=== PATIENT | female | born 1950 | race Caucasian/White ===

== ENCOUNTER → 2017-10-19 | Outpatient (CLI) | payer MEDICARE, OTHER ==
[~2017-10-19] MED LIST: PREMPRO PO
--- NOTE | 2017-10-19 13:08 | Diagnostic Imaging Report ---
PROCEDURE: US right lower extremity venous. TECHNIQUE: Multiple real-time grayscale images were obtained over the right lower extremity in various projections. Additional duplex Doppler and color Doppler images were also obtained. Date: 10/19/2017. Indication: 67-year-old female, right leg swelling. Comparison: None. Findings: The right common femoral vein, right superficial femoral vein, and right popliteal vein demonstrates flow with compressibility. Visualized portions of the greater saphenous vein and deep femoral vein are patent. The right posterior tibial vein and peroneal veins are patent. IMPRESSION: 1. Negative for right lower extremity deep venous thrombosis. Dictated by: Dictated on workstation # [id number]
== END ==
LOC: RAD 12:05
PROVIDERS: ATTEND Nurse Practitioner Family
DX: R22.41 Localized swelling, mass and lump, right lower limb (principal)

== ENCOUNTER → 2017-10-24 | Outpatient (CLI) | payer MEDICARE, OTHER ==
--- NOTE | 2017-10-25 09:04 | Diagnostic Imaging Report ---
INDICATION: Routine screening. COMPARISON: 01/20/2015 and 03/05/2013. TECHNIQUE: Screening digital mammography was performed bilaterally with a Computer Aided Detection (CAD) system. FINDINGS: Mild density is noted bilaterally. There is a density identified in the medial left breast at mid to posterior depth, best seen on the CC view. This may be inferiorly located on the MLO view. This appears more prominent when compared with the prior mammograms. Additional views are recommended. The right breast is stable. No malignant appearing microcalcifications are seen. The axillae are unremarkable. IMPRESSION: Increasing left breast density as described. Additional views including spot compression, rolled CC, and ML views are recommended. ACR BI-RADS Category 0: Incomplete. (Needs additional imaging evaluation). Result letter will be mailed to the patient. Note: At least 10% of breast cancer is not imaged by mammography. Dictated by: Dictated on workstation # [id number]
== END ==
LOC: RAD 15:09
PROVIDERS: ATTEND Nurse Practitioner Family
DX: Z12.31 Encounter for screening mammogram for malignant neoplasm of breast (principal)
CPT/HCPCS: 77067

== ENCOUNTER → 2017-10-28 | Outpatient (CLI) | payer MEDICARE, OTHER ==
--- NOTE | 2017-10-28 19:29 | Diagnostic Imaging Report ---
INDICATION: Breast density. Patient presents for additional views. Correlation is made with recent screening study from 10/24/2017 The current study was also evaluated with a Computer Aided Detection (CAD) system. Patient returned and spot compression CC, 90 degrees lateral and rolled CC views were obtained utilizing 3-D mammography. There is persistent somewhat irregular nodular density in the medial aspect of the left breast at mid to posterior depth. This appears to be slightly inferior although a corresponding density on the MLO view is not well seen. No malignant appearing microcalcifications are identified. IMPRESSION: Persistent irregular density medial left breast. Further evaluation with ultrasound is recommended. ACR BI-RADS Category 0: Incomplete. (Needs additional imaging evaluation). Result letter will be mailed to the patient. Note: At least 10% of breast cancer is not imaged by mammography. Dictated by: Dictated on workstation # [id number]
--- NOTE | 2017-10-28 20:05 | Diagnostic Imaging Report ---
INDICATION: Left breast density. Correlation is made with the diagnostic mammogram from 10/28/2017. FINDINGS: Sonographic Interrogation of the medial left breast was performed. No solid or cystic masses are identified. IMPRESSION: No sonographic abnormality is seen. Even so, the density in the medial aspect of the left breast seen on the mammogram is somewhat concerning. Further evaluation with MRI of the breast is recommended. ACR BI-RADS Category 0: Incomplete. (Needs additional imaging evaluation). Dictated by: Dictated on workstation # [id number]
== END ==
LOC: RAD 08:59
PROVIDERS: ATTEND Nurse Practitioner Family
DX: R92.2 Inconclusive mammogram (principal)
CPT/HCPCS: 76642

== ENCOUNTER 2018-03-01 08:12 | Outpatient (RCR) | payer MEDICARE, OTHER | END 2018-04-18 13:44 | disposition home or self-care (01) | LOC: ONC 08:12 | PROVIDERS: ATTEND Radiology Radiation Oncology | DX: Z51.0 Encounter for antineoplastic radiation therapy (principal); C50.212 Malignant neoplasm of upper-inner quadrant of left female breast; Z17.0 Estrogen receptor positive status [ER+] | CPT/HCPCS: 77290; 77295; 77300; 77307; 77334; 77336; 77417; 99204 ==

== ENCOUNTER 2018-04-18 13:46 | Outpatient (RCR) | payer MEDICARE, OTHER | END 2018-05-02 | disposition home or self-care (01) | LOC: ONC 13:46 | PROVIDERS: ATTEND Radiology Radiation Oncology | DX: C50.212 Malignant neoplasm of upper-inner quadrant of left female breast (principal); Z17.0 Estrogen receptor positive status [ER+] | CPT/HCPCS: 99213 ==

== ENCOUNTER → 2018-11-10 | Outpatient (CLI) | payer MEDICARE, OTHER ==
--- NOTE | 2018-11-10 21:24 | Diagnostic Imaging Report ---
INDICATION: Breast carcinoma. Correlation is made with left mammogram from 05/22/2018 and bilateral mammogram from 10/24/2017 and 02/03/2015. 2-D and 3-D bilateral diagnostic mammography was performed with a Computer Aided Detection (CAD) system. FINDINGS: Scattered fibroglandular densities are identified bilaterally. Post therapeutic changes in the left breast are noted. There has been overall decrease in density in the medial aspect of the left breast since prior exam, likely improving seroma. No mass or malignant-appearing microcalcifications are detected. The axillae are unremarkable. IMPRESSION: Decreasing density in the medial left breast, likely improving previously noted seroma post lumpectomy. Followup of this area with ultrasound is recommended will be performed today. ACR BI-RADS Category 0: Incomplete. (Needs additional imaging evaluation). Result letter will be mailed to the patient. Note: At least 10% of breast cancer is not imaged by mammography. Dictated by: Dictated on workstation # [id number]
--- NOTE | 2018-11-10 21:30 | Diagnostic Imaging Report ---
INDICATION: Left breast carcinoma status post lumpectomy. This study is performed to further evaluate previously noted left breast fluid collection. Correlation is made with diagnostic study earlier the same day as well as left breast ultrasound from 05/22/2018. FINDINGS: Fluid collection at the lumpectomy site at the 9 to 10 o'clock location in the left breast is again seen. This does measure slightly smaller at approximately 3.5 x 1.3 x 1.4 cm. This compares with 3.4 x 2.3 x 4.5 cm on prior. No new abnormality is detected. IMPRESSION: Decrease in size of a left breast fluid collection suggestive of seroma when compared with examination from 05/22/2018. Continued follow-up could be performed with a repeat study in six months to confirm continued resolution. ACR BI-RADS Category 3: Probably benign findings. Dictated by: Dictated on workstation # [id number]
== END ==
LOC: RAD 13:36
PROVIDERS: ATTEND Surgery
DX: C50.112 Malignant neoplasm of central portion of left female breast (principal)
CPT/HCPCS: 76642; 77066

== ENCOUNTER → 2019-05-18 | Outpatient (CLI) | payer MEDICARE, OTHER ==
--- NOTE | 2019-05-18 19:23 | Diagnostic Imaging Report ---
INDICATION: Six-month followup. COMPARISON: Correlation is made with prior mammograms from 11/10/2018 and 05/22/2018. TECHNIQUE: Unilateral left 2-D and 3-D diagnostic mammography was performed. The current study was also evaluated with a Computer Aided Detection (CAD) system. 3-D tomosynthesis was also performed and reviewed. FINDINGS: Density in the medial aspect of the left breast is similar to perhaps slightly less prominent when compared with prior exam. There is a nodular density in the retroareolar slightly outer left breast 3 cm from the nipple, which appears more prominent than prior studies. No other masses are seen. No suspicious microcalcifications are seen. Left axilla is unremarkable. IMPRESSION: Medial left breast density shown sonographically to represent a seroma appears slightly less prominent on today's study. This would be further evaluated with ultrasound. There is a nodular density retroareolar left breast, as described. This will also be further evaluated with ultrasound today. ACR BI-RADS Category 0: Incomplete. (Needs additional imaging evaluation). Result letter will be mailed to the patient. Note: At least 10% of breast cancer is not imaged by mammography. Dictated by: Dictated on workstation # [id number]
--- NOTE | 2019-05-18 19:31 | Diagnostic Imaging Report ---
INDICATION: Left breast seroma, followup. Patient also has left breast retroareolar density. Study is performed for further evaluation. COMPARISON: Correlation is made with diagnostic study earlier same day as well as prior left breast ultrasound from 11/10/2018. FINDINGS: Sonographic interrogation of the area of lumpectomy in the 9 to 10 o'clock location of left breast was performed. Fluid collection at this location measures 2.7 x 0.9 x 2.0 cm. This compares with 3.5 x 1.3 x 1.4 cm on prior. There is also a small cyst in retroareolar left breast at 1 o'clock location 1 cm from the nipple. It is uncertain if this correlates with the mammographic density. No other sonographic abnormalities are identified. IMPRESSION: Stable to slight decrease in size of the seroma at the lumpectomy site of left breast. Small cystic structure in the retroareolar left breast at 1 o'clock location 1 cm from the nipple is noted, uncertain if this correlates with the mammographic density. Mammographic density does have fairly benign features. Even so, followup left mammogram and left breast ultrasound is recommended to confirm stability in six months. ACR BI-RADS Category 3: Probably benign findings. Dictated by: Dictated on workstation # [id number]
== END ==
LOC: RAD 13:45
PROVIDERS: ATTEND Internal Medicine
DX: C50.112 Malignant neoplasm of central portion of left female breast (principal); L76.34 Postprocedural seroma of skin and subcutaneous tissue following other procedure; N60.02 Solitary cyst of left breast; Z98.890 Other specified postprocedural states
CPT/HCPCS: 76642

== ENCOUNTER → 2019-11-22 | Outpatient (CLI) | payer MEDICARE, OTHER ==
--- NOTE | 2019-11-23 11:29 | Diagnostic Imaging Report ---
EXAM: Digital mammogram bilateral diagnostic INDICATION: Carcinoma left breast COMPARISONS: 05/18/2019, 05/22/2018, 10/24/2017 and 02/03/2015. There are no current complaints. The patient has had a prior lumpectomy on the left in 2018.. The postsurgical changes involving the left breast seen previously are again evident and no different. There is no evidence for recurrent malignancy. There are scattered fibroglandular densities in both breasts which could obscure a lesion. Overall, there does not appear to have been any significant change when compared to the previous exams. There is no primary or secondary sign of malignancy noted. IMPRESSION: There is no evidence for malignancy. The patient should have a follow-up mammogram of the left breast in 6 months for continued evaluation. ACR category 3 ACR BI-RADS Category 3: Probably benign findings. Result letter will be mailed to the patient. Note: At least 10% of breast cancer is not imaged by mammography. Dictated by: Dictated on workstation # [id number]
== END ==
LOC: RAD 13:29
PROVIDERS: ATTEND Internal Medicine
DX: C50.112 Malignant neoplasm of central portion of left female breast (principal)
CPT/HCPCS: 77066

== ENCOUNTER → 2020-05-26 | Outpatient (CLI) | payer MEDICARE, OTHER ==
--- NOTE | 2020-05-26 13:01 | Diagnostic Imaging Report ---
INDICATION: Left breast carcinoma status post lumpectomy. COMPARISON: 11/22/2019 and 05/18/2019. TECHNIQUE: Unilateral left 2D and 3D diagnostic mammography was performed with CAD. FINDINGS: The post lumpectomy changes in the medial left breast appear stable. No new mass or malignant appearing microcalcifications are seen. There are benign calcifications present. The left axilla is unremarkable. IMPRESSION: Post lumpectomy changes of the left breast appear stable. No mammographic features suspicious for malignancy are identified. ACR BI-RADS Category 2: Benign findings. Result letter will be mailed to the patient. Note: At least 10% of breast cancer is not imaged by mammography. Dictated by: Dictated on workstation # [id number]
== END ==
LOC: RAD 12:24
PROVIDERS: ATTEND Internal Medicine
DX: C50.112 Malignant neoplasm of central portion of left female breast (principal); Z79.811 Long term (current) use of aromatase inhibitors; Z98.890 Other specified postprocedural states
CPT/HCPCS: 77065; G0279

== ENCOUNTER → 2020-05-27 | Outpatient (CLI) | payer MEDICARE, OTHER ==
--- NOTE | 2020-05-27 14:11 | Diagnostic Imaging Report ---
INDICATION: 69-year-old asymptomatic postmenopausal female. COMPARISON: None available. FINDINGS: AP Spine L2-L4: [BMD (g/cm2): 1.319] [T-Score: 1.0] [Z-Score: 1.5] [BMD Previous: NA] [BMD % Change: NA] LT Hip Neck: [BMD (g/cm2): 0.923] [T-Score: -0.8] [Z-Score: 0.1] LT Hip Total: [BMD (g/cm2):0.988] [T-Score:-0.2] [Z-Score: 0.5] [BMD Previous: NA] [BMD % Change: NA] RT Hip Neck: [BMD (g/cm2):0.949] [T-Score:-0.6] [Z-Score:0.3] RT Hip Total: [BMD (g/cm2):1.019] [T-score:0.1] [Z-Score:0.8] [BMD Previous:NA] [BMD % Change:NA] *Indicates significant change from prior examination based on 95% confidence level. World Health Organization criteria for BMD interpretation classify patients as Normal (T-score at or above -1.0), Osteopenic (T-score between -1.0 and -2.5) or Osteoporotic (T-score at or below -2.5). LIMITATIONS AND MODIFICATION: None. FRACTURE RISK (FRAX SCORE): The ten year probability of (%): Major Osteoporotic Fracture: [NA] Hip Fracture: [NA] IMPRESSION: 1. Normal bone mineral density. 2. Baseline examination. 3. See below National Osteoporosis Foundation guidelines on when to potentially initiate pharmacologic therapy. Based on the National Osteoporosis Foundation Guidelines, pharmacologic treatment should be initiated in any of the following, unless clinical conditions suggest otherwise: * Any patient with prior fragility fracture of the hip or vertebrae. A spine fracture indicates 5X risk for subsequent spine fracture and 2X risk for subsequent hip fracture. * Osteoporosis (T-score <-2.5). * Postmenopausal women and men age 50 and older with low bone mass/osteopenia (T-score between -1.0 and -2.5) by DXA and 10-year major osteoporotic fracture greater than 20% or a 10-year probability of hip fracture greater than 3%. These fracture risks are supplied above in the FRAX score, if applicable. * Clinician judgement and/or patient preferences may indicate treatment for people with 10-year fracture probabilities above or below these levels. Dictated by: Dictated on workstation # [id number]
== END ==
LOC: RAD 08:50
PROVIDERS: ATTEND Internal Medicine
DX: C50.112 Malignant neoplasm of central portion of left female breast (principal); Z79.811 Long term (current) use of aromatase inhibitors; Z78.0 Asymptomatic menopausal state
CPT/HCPCS: 77080

== ENCOUNTER → 2021-01-19 | Outpatient (CLI) | payer MEDICARE, OTHER | LOC: WOUNDCARE 09:49 | PROVIDERS: ATTEND Surgery | DX: I70.232 Atherosclerosis of native arteries of right leg with ulceration of calf (principal); L97.212 Non-pressure chronic ulcer of right calf with fat layer exposed; S81.801A Unspecified open wound, right lower leg, initial encounter; E66.01 Morbid (severe) obesity due to excess calories; Z68.41 Body mass index [BMI] 40.0-44.9, adult | CPT/HCPCS: 11042; A6260; G0463 ==

== ENCOUNTER → 2021-01-26 | Outpatient (CLI) | payer MEDICARE, OTHER | LOC: WOUNDCARE 09:59 | PROVIDERS: ATTEND Surgery | DX: L97.212 Non-pressure chronic ulcer of right calf with fat layer exposed (principal); S81.801A Unspecified open wound, right lower leg, initial encounter; I70.232 Atherosclerosis of native arteries of right leg with ulceration of calf; E66.01 Morbid (severe) obesity due to excess calories; I96 Gangrene, not elsewhere classified | CPT/HCPCS: 11042; G0463 ==

== ENCOUNTER → 2021-02-02 | Outpatient (CLI) | payer MEDICARE, OTHER | LOC: WOUNDCARE 10:09 | PROVIDERS: ATTEND Surgery | DX: I70.261 Atherosclerosis of native arteries of extremities with gangrene, right leg (principal); L97.212 Non-pressure chronic ulcer of right calf with fat layer exposed; S81.801A Unspecified open wound, right lower leg, initial encounter; E66.01 Morbid (severe) obesity due to excess calories; Z68.41 Body mass index [BMI] 40.0-44.9, adult | CPT/HCPCS: 11042; G0463 ==

== ENCOUNTER → 2021-02-09 | Outpatient (CLI) | payer MEDICARE, OTHER | LOC: WOUNDCARE 09:00 | PROVIDERS: ATTEND Surgery | DX: S81.801A Unspecified open wound, right lower leg, initial encounter (principal); I89.0 Lymphedema, not elsewhere classified | CPT/HCPCS: 99212 ==

== ENCOUNTER → 2021-02-16 | Outpatient (CLI) | payer MEDICARE, OTHER | LOC: WOUNDCARE 10:01 | PROVIDERS: ATTEND Surgery | DX: L97.212 Non-pressure chronic ulcer of right calf with fat layer exposed (principal); S81.801A Unspecified open wound, right lower leg, initial encounter; I70.232 Atherosclerosis of native arteries of right leg with ulceration of calf; E66.01 Morbid (severe) obesity due to excess calories | CPT/HCPCS: 11042; G0463 ==

== ENCOUNTER → 2021-02-23 | Outpatient (CLI) | payer MEDICARE, OTHER | LOC: WOUNDCARE 10:03 | PROVIDERS: ATTEND Surgery | DX: L97.212 Non-pressure chronic ulcer of right calf with fat layer exposed (principal); S81.801A Unspecified open wound, right lower leg, initial encounter; I70.232 Atherosclerosis of native arteries of right leg with ulceration of calf; E66.01 Morbid (severe) obesity due to excess calories; I96 Gangrene, not elsewhere classified | CPT/HCPCS: 11042; G0463 ==

== ENCOUNTER → 2021-03-10 | Outpatient (CLI) | payer MEDICARE, OTHER ==
[2021-03-10 12:19] LABS: BUN/CREATININE RATIO 32; CALCIUM 9.7 MG/DL (8.5-10.1); CARBON DIOXIDE 28 MMOL/L (21-32); CHLORIDE 107 MMOL/L (98-107); GFR ESTIMATED > 60; GLUCOSE 94 MG/DL (70-105); POTASSIUM 4.4 MMOL/L (3.6-5.0); SODIUM 142 MMOL/L (135-145)
== END ==
LOC: LAB 11:29
PROVIDERS: ATTEND Surgery
DX: L97.212 Non-pressure chronic ulcer of right calf with fat layer exposed (principal); S81.801A Unspecified open wound, right lower leg, initial encounter; I70.232 Atherosclerosis of native arteries of right leg with ulceration of calf; E66.01 Morbid (severe) obesity due to excess calories
CPT/HCPCS: 36415; 80048

== ENCOUNTER → 2021-03-10 | Outpatient (CLI) | payer MEDICARE, OTHER | LOC: WOUNDCARE 09:59 | PROVIDERS: ATTEND Surgery | DX: I96 Gangrene, not elsewhere classified (principal); L97.212 Non-pressure chronic ulcer of right calf with fat layer exposed; S81.801A Unspecified open wound, right lower leg, initial encounter; I70.232 Atherosclerosis of native arteries of right leg with ulceration of calf; E66.01 Morbid (severe) obesity due to excess calories; Z68.41 Body mass index [BMI] 40.0-44.9, adult | CPT/HCPCS: 11042; G0463 ==

== ENCOUNTER → 2021-03-16 | Outpatient (CLI) | payer MEDICARE, OTHER | LOC: WOUNDCARE 10:03 | PROVIDERS: ATTEND Surgery | DX: L97.212 Non-pressure chronic ulcer of right calf with fat layer exposed (principal); S81.801A Unspecified open wound, right lower leg, initial encounter; I70.242 Atherosclerosis of native arteries of left leg with ulceration of calf; E66.01 Morbid (severe) obesity due to excess calories; I96 Gangrene, not elsewhere classified | CPT/HCPCS: 11042; G0463 ==

== ENCOUNTER → 2021-03-23 | Outpatient (CLI) | payer MEDICARE, OTHER | LOC: WOUNDCARE 09:55 | PROVIDERS: ATTEND Surgery | DX: L97.212 Non-pressure chronic ulcer of right calf with fat layer exposed (principal); S81.801A Unspecified open wound, right lower leg, initial encounter; I70.232 Atherosclerosis of native arteries of right leg with ulceration of calf; E66.01 Morbid (severe) obesity due to excess calories; I96 Gangrene, not elsewhere classified | CPT/HCPCS: 11042; G0463 ==

== ENCOUNTER → 2021-03-30 | Outpatient (CLI) | payer MEDICARE, OTHER | LOC: WOUNDCARE 09:56 | PROVIDERS: ATTEND Surgery | DX: L97.212 Non-pressure chronic ulcer of right calf with fat layer exposed (principal); S81.801A Unspecified open wound, right lower leg, initial encounter; I70.232 Atherosclerosis of native arteries of right leg with ulceration of calf; E66.01 Morbid (severe) obesity due to excess calories | CPT/HCPCS: 99213 ==

== ENCOUNTER 2021-09-22 12:16 | Emergency (ER) | payer MEDICARE, OTHER ==
[~2021-09-22] VITALS: Ht 165 cm; Wt 113.6 kg
[2021-09-22 13:29] LABS: BASOPHILS % (AUTO) 0 % (0-10); EOSINOPHILS % (AUTO) 0 % (0-10); HEMATOCRIT 41 % (35-52); HEMOGLOBIN 13.5 g/dL (11.5-16.0); LYMPHOCYTES # (AUTO) 0.2 10^3/uL (1.0-4.0); LYMPHOCYTES % (AUTO) 2 % (12-44); MEAN CORPUSCULAR HEMOGLOBIN 32 pg (25-34); MEAN CORPUSCULAR HGB CONC 33 g/dL (32-36); MEAN CORPUSCULAR VOLUME 96 fL (80-99); MEAN PLATELET VOLUME 11.2 fL (9.0-12.2); MONOCYTES # (AUTO) 0.3 10^3/uL (0.0-1.0); MONOCYTES % (AUTO) 3 % (0-12); NEUTROPHILS # (AUTO) 9.5 10^3/uL (1.8-7.8); NEUTROPHILS % (AUTO) 94 % (42-75); PLATELET COUNT 200 10^3/uL (130-400)
[2021-09-22] MEDS ORDERED: LACTATED RINGERS 1,000 ML IV ONE (13:45)
[2021-09-22 13:56] LABS: ALBUMIN 4.2 GM/DL (3.2-4.5); POTASSIUM 4.3 MMOL/L (3.6-5.0)
[2021-09-22 13:57] LABS: CALCIUM 9.1 MG/DL (8.5-10.1)
[2021-09-22 13:58] LABS: BAND NEUTROPHILS 2 %; BASOPHILS % (MANUAL) 0 %; EOSINOPHILS % (MANUAL) 0 %; LYMPHOCYTES % (MANUAL) 1 %; MONOCYTES % (MANUAL) 2 %; NEUTROPHILS % (MANUAL) 95 %; RBC MORPH NORMAL; TOTAL PROTEIN 6.9 GM/DL (6.4-8.2)
[2021-09-22 14:00] LABS: BILIRUBIN,TOTAL 0.6 MG/DL (0.1-1.0)
[2021-09-22 14:02] LABS: CREATININE SERUM 0.82 MG/DL (0.60-1.30)
[2021-09-22] MEDS ORDERED: ONDANSETRON 4 MG/2 ML (SDV) Z0FRAN IVP ONE (14:15)
[2021-09-22 15:49] LABS: BILIRUBIN,URINE NEGATIVE (NEGATIVE); CLARITY,URINE CLEAR; COLOR,URINE YELLOW; GLUCOSE, URINE (UA) NEGATIVE (NEGATIVE); KETONES,URINE NEGATIVE (NEGATIVE); LEUKOCYTE ESTERASE ,URINE NEGATIVE (NEGATIVE); NITRITE,URINE NEGATIVE (NEGATIVE); PROTEIN,URINE NEGATIVE (NEGATIVE)
--- NOTE | 2021-09-22 15:49 | Diagnostic Imaging Report ---
EXAMINATION: US Abdomen limited. TECHNIQUE: Multiple real-time grayscale images were obtained over the right upper quadrant in various projections. HISTORY: Gall stones, abdominal pain, vomiting COMPARISON: None available. FINDINGS: Pancreas: The visualized portions of the pancreas are normal. Liver: Increased echogenicity of the liver and normal contour which can be seen with hepatic steatosis. No focal lesions are seen. The portal vein is patent with hepatopetal flow. Gallbladder and biliary tree: The gallbladder contains multiple stones with mild wall thickening. No pericholecystic fluid or sonographic Keller sign. There is no biliary ductal dilation. The common duct measures 0.6 cm. Right kidney: The right kidney is normal without hydronephrosis. Aorta and IVC: The visualized aorta and inferior vena cava are normal. Fluid: No ascites is seen. IMPRESSION: 1. Cholelithiasis with mildly thickened gallbladder wall. Recommend correlation with any signs or symptoms of acute cholecystitis. 2. Hepatic steatosis. Dictated by: Dictated on workstation # [id number]
[2021-09-22 15:57] LABS: BACTERIA,URINE NEGATIVE /HPF; RBC,URINE 0-2 /HPF; SQUAMOUS EPITHELIAL CELL,UR 0-2 /HPF; WBC,URINE 0-2 /HPF
[2021-09-22] MEDS ORDERED: ONDA4TAB11 SL (16:48)
--- NOTE | 2021-09-22 16:48 | ED Abdominal Pain ---
General Chief Complaint: Abdominal/GI Problems Stated Complaint: N/V,ABD PAIN, BODY ACHES,BACK PAIN Nursing Triage Note: AMB TO ROOM PATIENT REPORTS ONSET OF VOMITING SINCE THIS AM TO SEE DR ABDIRAHMAN GROSSMAN TOMORROW FOR A LESION ON HER BACK. HAD A PET SCAN 3 WEEKS AGO AND SHOWED GALLSTONE. HAS CHRONIC PAIN. Source of Information: Patient Exam Limitations: No Limitations History of Present Illness Date Seen by Provider: Sep 22, 2021 Time Seen by Provider: 12:32 Initial Comments This 71-year-old woman presents to the emergency room with relatively abrupt onset of nausea and vomiting and a large episode of diarrhea. Patient has history of gallstones identified on a PET scan. She is currently being evaluated for a mass lesion on her back concerning for possible neoplasm. She is to see Dr. Pa, general surgeon in [place], tomorrow for consultation regarding this mass. She does have history of breast cancer previously. Patient denies any respiratory symptoms or fever at this time. She is presuming her vomiting and diarrhea are related to the incidental finding of gallstones on the PET scan. Allergies and Home Medications Allergies Coded Allergies: No Known Allergies (Verified Allergy, Unknown, 09/19/06) Patient Home Medication List Home Medication List Reviewed: Yes Ondansetron (Ondansetron Odt) 4 Mg Tab.rapdis, 4 MG SL Q4H PRN for CHAIM SEA/VOMITING Prescribed by: ROSELYN MOYER on 09/22/21 1648 [Prempro] , PO DAILY, (Reported) Entered as Reported by: JOY HERNANDEZ on 10/07/10 0858 Review of Systems Review of Systems Constitutional: no symptoms reported EENTM: No Symptoms Reported Respiratory: No Symptoms Reported Cardiovascular: No Symptoms Reported Gastrointestinal: See HPI Genitourinary: No Symptoms Reported Musculoskeletal: no symptoms reported Skin: no symptoms reported Psychiatric/Neurological: No Symptoms Reported Endocrine: No Symptoms Reported Hematologic/Lymphatic: See HPI Past Dbwkjpk-Ynxnon-Bhuwhy Hx Patient Social History Tobacco Use?: No Substance use?: No Alcohol Use?: No Pt feels they are or have been: No Immunizations Up To Date First/Initial COVID19 Vaccinat: NOV Second COVID19 Vaccination Nehemiah: DECEMBER 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 oz. 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, no motor/sensory deficits, alert, normal mood/affect, oriented x 3 Skin: normal color, warm/dry Progress/Results/Core Measures Results/Orders Lab Results Laboratory Tests Test 09/22/21 13:14 09/22/21 13:26 09/22/21 15:29 Range/Units Influenza Type A (RT-PCR) Not Detected Not Detecte Influenza Type B (RT-PCR) Not Detected Not Detecte SARS-CoV-2 RNA (RT-PCR) Not Detected Not Detecte White Blood Count 10.0 4.3-11.0 10^3/uL Red Blood Count 4.27 3.80-5.11 10^6/uL Hemoglobin 13.5 11.5-16.0 g/dL Hematocrit 41 35-52 % Mean Corpuscular Volume 96 80-99 fL Mean Corpuscular Hemoglobin 32 25-34 pg Mean Corpuscular Hemoglobin Concent 33 32-36 g/dL Red Cell Distribution Width 12.7 10.0-14.5 % Platelet Count 200 130-400 10^3/uL Mean Platelet Volume 11.2 9.0-12.2 fL Immature Granulocyte % (Auto) 0 % Neutrophils (%) (Auto) 94 H 42-75 % Lymphocytes (%) (Auto) 2 L 12-44 % Monocytes (%) (Auto) 3 0-12 % Eosinophils (%) (Auto) 0 0-10 % Basophils (%) (Auto) 0 0-10 % Neutrophils # (Auto) 9.5 H 1.8-7.8 10^3/uL Lymphocytes # (Auto) 0.2 L 1.0-4.0 10^3/uL Monocytes # (Auto) 0.3 0.0-1.0 10^3/uL Eosinophils # (Auto) 0.0 0.0-0.3 10^3/uL Basophils # (Auto) 0.0 0.0-0.1 10^3/uL Immature Granulocyte # (Auto) 0.0 0.0-0.1 10^3/uL Neutrophils % (Manual) 95 % Lymphocytes % (Manual) 1 % Monocytes % (Manual) 2 % Eosinophils % (Manual) 0 % Basophils % (Manual) 0 % Band Neutrophils 2 % Blood Morphology Comment NORMAL Sodium Level 143 135-145 MMOL/L Potassium Level 4.3 3.6-5.0 MMOL/L Chloride Level 107 98-107 MMOL/L Carbon Dioxide Level 22 21-32 MMOL/L Anion Gap 14 5-14 MMOL/L Blood Urea Nitrogen 31 H 7-18 MG/DL Creatinine 0.82 0.60-1.30 MG/DL Estimat Glomerular Filtration Rate 69 BUN/Creatinine Ratio 38 Glucose Level 140 H 70-105 MG/DL Calcium Level 9.1 8.5-10.1 MG/DL Corrected Calcium 8.9 8.5-10.1 MG/DL Total Bilirubin 0.6 0.1-1.0 MG/DL Aspartate Amino Transf (AST/SGOT) 28 5-34 U/L Alanine Aminotransferase (ALT/SGPT) 17 0-55 U/L Alkaline Phosphatase 79 40-136 U/L C-Reactive Protein High Sensitivity 1.82 H 0.00-0.50 MG/DL Total Protein 6.9 6.4-8.2 GM/DL Albumin 4.2 3.2-4.5 GM/DL Lipase 28 8-78 U/L Urine Color YELLOW Urine Clarity CLEAR Urine pH 6.0 5-9 Urine Specific [place] 1.025 H 1.016-1.022 Urine Protein NEGATIVE NEGATIVE Urine Glucose (UA) NEGATIVE NEGATIVE Urine Ketones NEGATIVE NEGATIVE Urine Nitrite NEGATIVE NEGATIVE Urine Bilirubin NEGATIVE NEGATIVE Urine Urobilinogen 0.2 < = 1.0 MG/DL Urine Leukocyte Esterase NEGATIVE NEGATIVE Urine RBC (Auto) TRACE-I H NEGATIVE Urine RBC 0-2 /HPF Urine WBC 0-2 /HPF Urine Squamous Epithelial Cells 0-2 /HPF Urine Renal Epithelial Cells NONE /HPF Urine Crystals NONE /LPF Urine Bacteria NEGATIVE /HPF Urine Casts NONE /LPF Urine Mucus NEGATIVE /LPF Urine Culture Indicated NO My Orders Orders - ROSELYN VALENCIA MD Cbc With Automated Diff (09/22/21 12:32) Comprehensive Metabolic Panel (09/22/21 12:32) Hs C Reactive Protein (09/22/21 12:32) Ua Culture If Indicated (09/22/21 12:32) Ed Iv/Invasive Line Start (09/22/21 12:32) Covid 19 Inhouse Test (09/22/21 12:32) Influenza A And B By Pcr (09/22/21 12:32) Manual Differential (09/22/21 13:26) Lipase (09/22/21 13:32) Lactated Ringers (Lr 1000 Ml Iv Solution (09/22/21 13:45) Ondansetron Injection (Zofran Injectio (09/22/21 14:15) Us Gallbladder [id number] (09/22/21 14:36) Medications Given in ED Vital Signs/I&O 09/22/21 09/22/21 12:30 16:59 Temp 37.4 Pulse 89 96 Resp 18 18 B/P (MAP) 184/104 (130) 118/66 Pulse Ox 99 98 O2 Delivery Room Air Room Air Blood Pressure Mean: 130 Progress Progress Note : Progress Note Patient was treated with Zofran and IV fluids. Vomiting resolved. She felt much better with these treatments. Gallbladder ultrasound was obtained and acute surgical cholecystitis was not appreciated. Gallstones were noted. I believe her symptoms are due to a viral gastroenteritis rather than acute cholecystitis, especially because her abdomen was nontender. See discharge inst ructions for further information. Diagnostic Imaging Diagonstic Imaging: Ultrasound Plain Films/CT/US/NM/MRI: abdomen Comments NAME: DALLAS ALVAREZ [facility] REC#: [id number] PT STATUS: REG ER : 1950 PHYSICIAN: ROSELYN VALENCIA MD ADMIT DATE: 09/22/21/ER Signed Date of Exam:09/22/21 US GALLBLADDER [id number] EXAMINATION: US Abdomen limited. TECHNIQUE: Multiple real-time grayscale images were obtained over the right upper quadrant in various projections. HISTORY: Gall stones, abdominal pain, vomiting COMPARISON: None available. FINDINGS: Pancreas: The visualized portions of the pancreas are normal. Liver: Increased echogenicity of the liver and normal contour which can be seen with hepatic steatosis. No focal lesions are seen. The portal vein is patent with hepatopetal flow. Gallbladder and biliary tree: The gallbladder contains multiple stones with mild wall thickening. No pericholecystic fluid or sonographic Keller sign. There is no biliary ductal dilation. The common duct measures 0.6 cm. Right kidney: The right kidney is normal without hydronephrosis. Aorta and IVC: The visualized aorta and inferior vena cava are normal. Fluid: No ascites is seen. IMPRESSION: 1. Cholelithiasis with mildly thickened gallbladder wall. Recommend correlation with any signs or symptoms of acute cholecystitis. 2. Hepatic steatosis. Dictated by: Dictated on workstation # [id number] Dict: 09/22/21 1544 Trans: 09/22/21 1603 [id number] Interpreted by: ROBERTO BARBER DO Electronically signed by: ROBERTO BARBER DO 09/22/21 1603 Departure Impression Primary Impression: Nausea vomiting and diarrhea Additional Impression: Cholelithiasis Qualified Codes: K80.20 - Calculus of gallbladder without cholecystitis without obstruction Disposition: 01 HOME, SELF-CARE Condition: Improved Departure-Patient Inst. Decision time for Depature: 16:44 Referrals: EM ESTEBAN MD (PCP/Family) Primary Care Physician Patient Instructions: Gallstones (DC) Add. Discharge Instructions: Although you have gallstones, your nausea, vomiting, and diarrhea today is more likely related to a viral illness, especially since she did not have significant pain or tenderness in the right upper abdomen. Adhere to a noncarbonated clear liquid diet tonight. If you are feeling better in the morning, gradually advance your diet with small quantities of bland food as tolerated. Avoid fatty, greasy, or oily foods including dairy products, salad dressings, etc. These foods are more likely to trigger gallbladder attacks. Use Zofran as prescribed for nausea or vomiting. For pain you may use Tylenol (acetaminophen) up to 1000 mg every 6 hours as needed. You may add ibuprofen up to 600 mg every 6 hours as needed sparingly for pain not controlled by Tylenol. [id number]-nzf-wzoewkh antidiarrheals may be used if your diarrhea is persistent. Bring your paperwork from the ER including the ultrasound report, lab work, and discharge papers with you to your appointment with Dr. Pa tomorrow. Discussed the potential for combining sedation for gallbladder removal and your endoscopies with Dr. Pa. Call with questions or concerns. Return to the ER if you have worsening symptoms despite following these instructions. All discharge instructions reviewed with patient and/or family. Voiced understanding. Scripts Ondansetron (Ondansetron Odt) 4 Mg Tab.rapdis 4 MG SL Q4H PRN for NAUSEA/VOMITING, #10 TAB Prov: ROSELYN VALENCIA MD 09/22/21 Copy Copies To 1: EM ESTEBAN MD, JOSHUA T MD Sep 22, 2021 16:48
[2021-09-22 16:59] VITALS: BP 118/66
== END 2021-09-22 16:59 | disposition home or self-care (01) ==
LOC: EDUNIT# 12:16 → ER 12:18
DX: K80.20 Calculus of gallbladder without cholecystitis without obstruction (principal); R19.7 Diarrhea, unspecified; I10 Essential (primary) hypertension; Z20.822 Contact with and (suspected) exposure to COVID-19
CPT/HCPCS: 36415; 76705; 80053; 81000; 83690; 85007; 85027; 86141; 87636

== ENCOUNTER 2022-06-03 12:35 | Inpatient (IN) | payer MEDICARE, OTHER ==
[~2022-06-03] VITALS: Ht 172.7 cm; Wt 115.2 kg
[2022-06-03 12:35] VITALS: BP 132/62
[~2022-06-03 12:35] MED LIST changes: +ACET-2267 PO; +ACETAMINOPHEN 325 MG TABLET PO PRN; +ALPRAZolam 0.25 MG (XANAX) TAB PO PRN; +ANAS1TAB50 PO; +ASPI-1238 PO; +ATOR10TA66 PO; +BISACODYL 10 MG SUPP (DULCOLAX) PR PRN; +CALC600T80 PO; +CALCIUM CARBONATE 500 MG (TUMS) TAB.CHEW PO PRN; +CHOL10007 PO; +DOCU100C37 PO; +DOCUSATE SODIUM 100 MG (COLACE) CAP PO PRN; +DOCUSATE SODIUM 100 MG (COLACE) CAP PO SCH; +FLEET ENEMA ADULT 1 EA BTL PR PRN; +LACTULOSE SYRUP 10GM/15ML (ENULOSE) 30ML UDC PO PRN; +LOPERAMIDE 2 MG (IMODIUM) TABLET PO PRN; +MELATONIN 3 MG TABLET PO PRN; +METO50TA7 PO; +ONDA4TAB11 SL; +ONDANSETRON 4 MG (ZOFRAN) ORAL DISSOLVE TAB PO PRN; +OXC5T PO; +PANT40TA52 PO; +PEDI18TA7 PO; +TRM50T PO; +diphenhydrAMINE 25 MG TAB (BENADRYL) PO PRN; +guaiFENesin/CODEINE (ROBITUSSIN AC) 10ML UDC PO PRN
--- NOTE | 2022-06-03 13:35 | Physical Therapy Evaluation ---
PT Evaluation-General Medical Diagnosis Admission Date Jun 03, 2022 at 12:35 Medical Diagnosis: elective right TKA Onset Date: Jun 01, 2022 Therapy Diagnosis Therapy Diagnosis: impaired mobility/weakness Precautions Precautions/Isolations: Standard Precautions Weight Bear Status Right Lower Extremity: Right Weight Bearing/Tolerated Left Lower Extremity: Left Full Weight Bearing Referral Physician: Mendez Reason for Referral: Evaluation/Treatment Medical History Pertinent Medical History: HTN Current History s/p elective right TKR Reviewed History: Yes Social History Home: Multilevel (basement (patient does not go down)) Current Living Status: Spouse Entry Into Home: Stairs Without Railing PT Steps Into Home: 2 Prior Prior Level of Function SCALE: Activities may be completed with or without assistive devices. 9-Iejvsyjxmb-xlthzub completes the activity by him/herself with no assistance from a helper. 5-Set-up or Clean-up Assistance-helper sets up or cleans up; patient completes activity. [place] assists only prior to or following the activity. 4-Supervision or Touching Assistance-helper provides verbal cues and/or touching/steadying and/or contact guard assistance as patient completes activity. Assistance may be provided throughout the activity or intermittently. 3-Partial/Moderate Assistance-helper does LESS THAN HALF the effort. [place] lifts, holds or supports trunk or limbs, but provides less than half the effort. 2-Substantial/Maximal Assistance-helper does MORE THAN HALF the effort. [place] lifts or holds trunk or limbs and provides more than half the effort. 5-Uncogrmbg-cbbtyn does ALL the effort. Patient does none of the effort to complete the activity. Or, the assistance of 2 or more helpers is required for the patient to complete the activity. If activity was not attempted, code reason: 7-Patient Refused. 9-Not Applicable-not attempted and the patient did not perform the activity befo re the current illness, exacerbation or injury. 10-Not Attempted due to Environmental Limitations-(lack of equipment, weather re straints, etc.). 88-Not Attempted due to Medical Conditions or Safety Concerns. Bed Mobility: 6 Transfers (B,C,W/C): 6 Gait: 6 Stairs: 6 Indoor Mobility (Ambulation): Independent Stairs: Independent Prior Devices Use: None PT Evaluation-Current Subjective Patient agrees to PT. Pain Numeric Pain Scale: 5-Moderate Pain Location: Right Location Body Site: Knee Pain Description: Acute Objective Patient Orientation: Normal For Age ROM/Strength ROM Lower Extremities right knee flexion ~50 degrees/10 degrees extension/left LE WFL Strength Lower Extremities right LE 3-/5 grossly/left LE3+/5 grossly Integumentary/Posture Integumentary refer to nursing notes Bowel Incontinence: No Bladder Incontinence: No Posture slight trunk flexed posture Neuromuscular (Tone, Coordination, Reflexes) grossly intact Sensory Vision: Functional Hearing: Functional Sensation Right Upper Extremit: Intact Sensation Left Upper Extremity: Intact Transfers Sit to Stand (QC): 4 Chair/Zmh-yk-Kuaiw Xfer(QC): 4 Car Transfer (QC): 4 Gait Mode of Locomotion: Walk Anticipated Mode of Locomotion: Walk Walk 10 feet (QC): 4 Walk 50 ft with 2 Turns(QC): 4 Walk 150 ft (QC): 4 Walking 10ft/uneven surface-QC: 4 Distance: 200' Gait Assistive Device: FWW Comments/Gait Description slow, antalgic gait sequence Stairs #of Steps: 3 1 Step (curb) (QC): 4 4 Steps (QC): 88 12 Steps (QC): 88 Balance Sitting Static: Normal Sitting Dynamic: Normal Standing Static: Good Standing Dynamic: Good Assessment/Needs 71 y.o. female, will benefit from skilled PT to address functional strength and mobility to improve current LOF to safely return to home with spouse at maximum LOF. Patient is currently limited by edema and ROM right LE. Rehab Potential: JASSON Morgan PT Jun 03, 2022 13:35
--- NOTE | 2022-06-03 13:40 | ST Cognitive Linguistic Eval ---
Speech Evaluation-General Medical Diagnosis R TKR Onset Date: Jun 01, 2022 Therapy Diagnosis Therapy Diagnosis: Intact Cognitive Lingusitic Skills Precautions Precautions: Fall Precautions/Isolations: Fall Prevention, Standard Precautions Referral Referring Physician: Dr. Simms Reason for Referral: Evaluation/Treatment Medical History Current History The patient is a 71 year-old female, who recently underwent a R TKR. Speech PLF-Current Status Prior Level of Function The patient denied prior challenges or concerns with her speech, language, or cognition. Subjective The patient was lying in bed, awake and alert upon entrance to her room by the clinician. The patient greeted the clinician appropriately and was agreeable to participation in the cognitive linguistic assessment. Language Eval: Auditory Comprehends Simple Yes/No Ques: Functional Indent/Objects Multiple Friend: Functional Ident/Pics in Multiple Friend: Functional Follows 1-Step Commands: Functional Follows Complex Directions: Functional Follows General Conversations: Functional Language Eval: Verbal Language Completes Spontaneous Greeting: Functional Produces Auto, Serial Info: Functional Imitates Simple Words/Phrases: Functional Word Finding: Functional Requests Basic Needs: Functional States Basic Personal Info: Functional Expresses Complex Ideas: Functional Cognitive Patient Orientation The patient was independently oriented to self, location, month, day of the week, and year. Objective Cognitive Domain Attention: WNL Memory: WNL Problem Solving: Functional Executive Functions: WNL Visuospatial Skills: WNL Composite Severity Rating: WNL Objective Formal/Standardized Tests [facility] Mental Status Exam ([facility]) Results The patient demonstrated a result of +29/30 on the SLUMS correlating to cognitive linguistic skills within normal limits. Oral Motor/Speech Production The patient does not display dysarthria or apraxia of speech at this time. The patient is 100% intelligible in known and unknown contexts. Impression The patient demonstrated results within normal limits. Speech Patient Assess Expression of Ideas/Wants: Expression (4) Understanding Verbal Content: Understands (4) Brief Interview-Mental Status: Yes Repetition of Three Words: Three (3) Temporal Orientation: Year: Correct (3) Temporal Orientation: Month: Accurate within 5 days(2) Temporal Orientation: Day: Correct (1) Recall : Wear to say "Sock": Yes, no cue required (2) Recall : Color: Yes, no cue required (2) Recall : Bed: Yes, no cue required (2) Memory/Recall Ability: Current season, Location of own room, Staff names and faces, That he or she is in a hsp/hsp unit Speech-Plan Treatment Plan Speech Therapy Treatment Plan: Continue Plan of Care Treatment Duration: Jun 03, 2022 Frequency: 1 time per week Estimated Hrs Per Day: .5 hour per day Rehab Potential: Good Safety Risks/Education Teaching Recipient: Patient Teaching Methods: Discussion Response to Teaching: Verbalize Understanding Education Topics Provided: Results, Recommendations, Plan of Care Time Speech Therapy Time In: 14:05 Speech Therapy Time Out: 14:35 Total Billed Time: 30 Billed Treatment Time 1, SALOMÓN ARCE [facility] ST Jun 03, 2022 13:40
--- NOTE | 2022-06-03 13:43 | Physical Therapy Evaluation ---
PT Evaluation-General Medical Diagnosis Admission Date Jun 03, 2022 at 12:35 Medical Diagnosis: right TKA Onset Date: Jun 01, 2022 Therapy Diagnosis Therapy Diagnosis: impaired mobility Referral Physician: Mendez Reason for Referral: Evaluation/Treatment Medical History Pertinent Medical History: HTN Current History s/p elective right TKR Reviewed History: Yes Social History Home: Multilevel (basement (patient does not go down)) Current Living Status: Spouse Entry Into Home: Stairs Without Railing PT Steps Into Home: 2 Prior Prior Level of Function SCALE: Activities may be completed with or without assistive devices. 2-Nyfcyncdxu-wsevpdg completes the activity by him/herself with no assistance from a helper. 5-Set-up or Clean-up Assistance-helper sets up or cleans up; patient completes activity. [place] assists only prior to or following the activity. 4-Supervision or Touching Assistance-helper provides verbal cues and/or touching/steadying and/or contact guard assistance as patient completes activity. Assistance may be provided throughout the activity or intermittently. 3-Partial/Moderate Assistance-helper does LESS THAN HALF the effort. [place] lifts, holds or supports trunk or limbs, but provides less than half the effort. 2-Substantial/Maximal Assistance-helper does MORE THAN HALF the effort. [place] lifts or holds trunk or limbs and provides more than half the effort. 6-Jhmmaqmow-zqxomk does ALL the effort. Patient does none of the effort to complete the activity. Or, the assistance of 2 or more helpers is required for the patient to complete the activity. If activity was not attempted, code reason: 7-Patient Refused. 9-Not Applicable-not attempted and the patient did not perform the activity before the current illness, exacerbation or injury. 10-Not Attempted due to Environmental Limitations-(lack of equipment, weather restraints, etc.). 88-Not Attempted due to Medical Conditions or Safety Concerns. Bed Mobility: 6 Transfers (B,C,W/C): 6 Gait: 6 Stairs: 6 Indoor Mobility (Ambulation): Independent Stairs: Independent Prior Devices Use: None PT Evaluation-Current Subjective Patient agrees to PT. Pain Numeric Pain Scale: 5-Moderate Pain Location: Right Location Body Site: Knee Pain Description: Acute Objective Patient Orientation: Normal For Age ROM/Strength ROM Lower Extremities right knee flexion ~50 degrees/extension 10 degrees; left LE WFL Strength Lower Extremities 3-/5 grossly right LE/left LE 3+/5 grossly Integumentary/Posture Integumentary refer to nursing notes Bowel Incontinence: No Bladder Incontinence: No Posture slight trunk flexed posture Neuromuscular (Tone, Coordination, Reflexes) grossly intact Sensory Vision: Functional Hearing: Functional Transfers Roll Left & Right (QC): 4 Sit to Lying (QC): 3 Lying to Sitting/Side of Bed(Q: 3 Sit to Stand (QC): 4 Chair/Pvh-vr-Lrhyi Xfer(QC): 4 Toilet Transfer (QC): 4 Car Transfer (QC): 4 Gait Does the Patient Walk?: Yes Mode of Locomotion: Walk Anticipated Mode of Locomotion: Walk Walk 10 feet (QC): 4 Walk 50 ft with 2 Turns(QC): 4 Walk 150 ft (QC): 4 Walking 10ft/uneven surface-QC: 4 Distance: 200' Gait Assistive Device: FWW Comments/Gait Description slow, antalgic, minimal foot clearance Wheelchair Training Wheel 50 ft with 2 turns (QC): 9 Wheel 150 ft (QC): 9 Type of Wheelchair: N/A Stairs #of Steps: 5 1 Step (curb) (QC): 4 4 Steps (QC): 4 12 Steps (QC): 88 Balance Sitting Static: Normal Sitting Dynamic: Normal Standing Static: Good Standing Dynamic: Good Picking up an Object (QC): 88 Assessment/Needs 71 y.o. female, will benefit from skilled PT to address functional strength and mobility to improve current LOF to safely return to home with spouse at maximum LOF. Patient is currently limited by right LE edema and knee ROM. Rehab Potential: Fair PT Punching Machine Operator Goals Punching Machine Operator Goals PT Punching Machine Operator Goals Time Frame: Jun 26, 2022 Roll Left & Right (QC): 6 Sit to Lying (QC): 6 Lying-Sitting on Side/Bed(QC): 6 Sit to Stand (QC): 6 Chair/Peq-ju-Snnna Xfer(QC): 6 Toilet Transfer (QC): 6 Car Transfer (QC): 6 Does the Patient Walk: Yes Walk 10 feet (QC): 6 Walk 50ft with 2 Turns (QC): 6 Walk 150 ft (QC): 6 Walking 10ft on Uneven Surface: 6 1 Step (curb) (QC): 4 4 Steps (QC): 4 12 Steps (QC): 4 Picking up an Object (QC): 6 Does the Pt use WC or Scooter?: No Wheel 50 feet with 2 turns (QC: 9 Type: N/A Wheel 150 feet: 9 Type: N/A PT Plan Problem List Problem List: Activity Tolerance, Functional Strength, Safety, Balance, Gait, Transfer, Bed Mobility, ROM Treatment/Plan Treatment Plan: Continue Plan of Care Treatment Plan: Bed Mobility, Concurrent Therapy, Education, Functional Activity Sonu, Functional Strength, Group Therapy, Gait, Safety, Therapeutic E xercise, Transfers Treatment Duration: Jun 26, 2022 Frequency: At least 5 of 7 days/Wk (IRF) Estimated Hrs Per Day: 1.5 hours per day Patient and/or Family Agrees t: Yes Time/GCodes Time In: 1235 Time Out: 1250 Total Billed Treatment Time: 15 Total Billed Treatment 1 visit EVModC 15 min JASSON WORKMAN PT Jun 03, 2022 13:43
--- NOTE | 2022-06-03 13:58 | Occupational Therapy Eval ---
OT Evaluation-General/PLF Medical Diagnosis Admission Date Jun 03, 2022 at 12:35 Medical Diagnosis: right TKA Onset Date: Jun 01, 2022 Therapy Diagnosis Therapy Diagnosis: Decreased ADL status Referral Physician: Mendez Referral Reason: Evaluation/Treatment Medical History Pertinent Medical History: HTN Additional Medical History hyperlipidemia,HTN, gastric sleeve Current History s/p elective R TKA 06/01/22 Social History Home: Multilevel (basement (patient does not go down)) Current Living Status: Spouse Entry Into Home: Stairs Without Railing Steps Into Home: 2 ADL-Prior Level of Function SCALE: Activities may be completed with or without assistive devices. 8-Xovmicsrry-vtwcuvo completes the activity by him/herself with no assistance from a helper. 5-Set-up or Clean-up Assistance-helper sets up or cleans up; patient completes activity. [place] assists only prior to or following the activity. 4-Supervision or Touching Assistance-helper provides verbal cues and/or touching/steadying and/or contact guard assistance as patient completes activity. Assistance may be provided throughout the activity or intermittently. 3-Partial/Moderate Assistance-helper does LESS THAN HALF the effort. [place] lifts, holds or supports trunk or limbs, but provides less than half the effort. 2-Substantial/Maximal Assistance-helper does MORE THAN HALF the effort. [place] lifts or holds trunk or limbs and provides more than half the effort. 8-Lcehsrjxa-jjitrr does ALL the effort. Patient does none of the effort to complete the activity. Or, the assistance of 2 or more helpers is required for the patient to complete the activity. If activity was not attempted, code reason: 7-Patient Refused. 9-Not Applicable-not attempted and the patient did not perform the activity bef ore the current illness, exacerbation or injury. 10-Not Attempted due to Environmental Limitations-(lack of equipment, weather r estraints, etc.). 88-Not Attempted due to Medical Conditions or Safety Concerns. ADL PLOF Comments Pt reports IND with ADLs and functional mobility, no AD. She has recently used a walker due to pain in R knee. Pt lives with her spouse in a home with a basement, but she doesn't go down into the basement. Bedroom and bathroom on main level, walk in shower with KS Self Care: Independent Functional Cognition: Independent DME/Equipment: Bath Chair, Shower DME/Equipment Comments walker, cane, SC OT Current Status Subjective Pt agreeable to OT evaluation and OT/PT cotreat. Mental Status/Objective Patient Orientation: Person, Place, Time, Situation Current Hand Dominance: Right Upper Extremity ROM WFL, BUE shoulder flexion to approx 150 degrees Upper Extremity Coordination WFL Upper Extremity Sensation WFL Upper Extremity Strength grossly 4/5 BUEs ADL-Treatment Eating (QC): 6 (IND per pt report.) Oral Hygiene (QC): 4 (Per pt report, standing at sink.) Shower/Bathe Self (QC): 3 (Mod A requiredm for sit to stand at GBS in order to wash buttocks. min A to wash feet for thoroughness.) Upper Body Dressing (QC): 5 (set up) Lower Body Dressing (QC): 3 (Mod A sit to driver starting gate order to perform pant hike. Pt able to thread BLEs, min A pant hike.) On/Off Footwear (QC): 2 (Pt able to doff gripper socks. total assist to doff compression socks and total assist to don compression socks/gripper socks.) Toileting Hygiene (QC): 3 (Mod A to stand. Pt able to complete hygiene and min A with pant hike.) Other Treatments OT evaluation complete, then OT/PT cotreat due to skill of 2 clinicians required which a biomedical repair technician could not perform in order to coordinate UE/LEs, decrease fall risk, and due to pt's limitations in strength, activate tolerance and transfers. OT focused on UE placement, cues for sequencing and safety and ADLs, PT focused on LE placement, gross overall movement, and transfers/mobility. Pt used FWW to go to room, then transfer to KS, CGA. Pt doffed clothes, completed shower, then donned clothes. When standing from KS with showering and LB dressing, pt had increased difficulty, requiring mod assist 1-2 to stand at GBs, x4-5 trials. Pt then used FWW to transfer to EOB, then supine (mod A sit to supine assist with RLE). End cotreat, OT continued tx, pt able to comb hair with set up assist, OT educated pt on rehab expectations, assisted to comfort, and educated on meals. Post tx, pt in bed, call light in reach and all needs met. Education OT Patient Education: Correct positioning, Energy conservation, Exercise program, Modified ADL techniques, Progress toward Goal/Update tx plan, Purpose of tx/functional activities, Rehab process, Safety issues, Transfer techniques Teaching Recipient: Patient Teaching Methods: Discussion Response to Teaching: Verbalize Understanding OT Short Term Goals Short Term Goals Time Frame: Jun 11, 2022 Shower/bathe self: 4 Lower body dressin Putting on/taking off footwear: 4 OT Keno Manager Goals Snf Goals Time Frame: Jun 25, 2022 Eating (QC): 6 Oral Hygiene (QC): 6 Toileting Hygiene (QC): 6 Shower/Bathe Self (QC): 5 Upper Body Dressing (QC): 6 Lower Body Dressing (QC): 6 On/Off Footwear (QC): 6 Additional Goals: 1-Demonstrate ADL Tasks, 2-Verbalize Understanding, 3- ImproveStrength/Sonu 1=Demonstrate adherence to instructed precautions during ADL tasks. 2=Patient will verbalize/demonstrate understanding of assistive devices/modifications for ADL. 3=Patient will improve strength/tolerance for activity to enable patient to perform ADL's. OT Education/Plan Problem List/Assessment Assessment: Decreased Activ Tolerance, Decreased UE Strength, Impaired Funct Balance, Impaired I ADL's, Impaired Self-Care Skills Discharge Recommendations Plan/Recommendations: Continue POC Comment AE recommendation to be determined based on pt's progress Treatment Plan/Plan of Care Patient would benefit from OT for education, treatment and training to promote independence in ADL's, mobility, safety and/or upper extremity function for ADL's. Plan of Care: ADL Retraining, Functional Mobility, Group Exercise/Act as Ind, UE Funct Exercise/Act Treatment Duration: Jun 25, 2022 Frequency: At least 5 of 7 days/Wk (IRF) Estimated Hrs Per Day: 1.5 hours per day Rehab Potential: Fair Time/GCodes Start Time: 12:50 Stop Time: 14:05 Total Time Billed (hr/min): 75 Billed Treatment Time OT eval [id number], Cotreat [id number], OT tx [id number] 1, EVL (10'), ADL 4 (65') RADHA DUBOIS OT Jun 03, 2022 13:58
--- NOTE | 2022-06-03 14:14 | Physical Therapy Daily Note ---
PT Daily Note-Current Subjective Pt. agrees to Rx, states she is a little tired . Pain Numeric Pain Scale: 4 Location: Right Location Body Site: Knee Pain Description: Ache Mental Status Patient Orientation: Normal For Age Attachments: Polar Pack Transfers SCALE: Activities may be completed with or without assistive devices. 6-Uoipbteqxh-iuzacxd completes the activity by him/herself with no assistance from a helper. 5-Set-up or Clean-up Assistance-helper sets up or cleans up; patient completes activity. [place] assists only prior to or following the activity. 4-Supervision or Touching Assistance-helper provides verbal cues and/or touchin g/steadying and/or contact guard assistance as patient completes activity. Assistance may be provided throughout the activity or intermittently. 3-Partial/Moderate Assistance-helper does LESS THAN HALF the effort. [place] lifts, holds or supports trunk or limbs, but provides less than half the effort. 2-Substantial/Maximal Assistance-helper does MORE THAN HALF the effort. [place] lifts or holds trunk or limbs and provides more than half the effort. 2-Xytufyzti-rhbjal does ALL the effort. Patient does none of the effort to complete the activity. Or, the assistance of 2 or more helpers is required for the patient to complete the activity. If activity was not attempted, code reason: 7-Patient Refused. 9-Not Applicable-not attempted and the patient did not perform the activity before the current illness, exacerbation or injury. 10-Not Attempted due to Environmental Limitations-(lack of equipment, weather restraints, etc.). 88-Not Attempted due to Medical Conditions or Safety Concerns. Sit to Lying (QC): 3 Sit to Stand (QC): 3 mod assist 1-2 from shower bench seat x 4-5 trials. sit to sup at bed mod assist left LE Gait Training Does the Patient Walk?: Yes Gait Assistive Device: FWW 30 ft x 2 CGA, flexed knee, heavy wt bearing on FWW Exercises Supine Ex: Ankle pumps, Quad Set Supine Reps: 20 Treatments co RX PT OT for functional mob and showering, doffing and donning clothes, and shower TRF as well as bed TRF and gait secondary to debility and safety issues Assessment Current Status: Good Progress gives full effort PT Manager Utilities Goals Manager Utilities Goals PT [facility] Goals Time Frame: Jun 26, 2022 Roll Left & Right (QC): 6 Sit to Lying (QC): 6 Lying-Sitting on Side/Bed(QC): 6 Sit to Stand (QC): 6 Chair/Qud-ux-Qcrfs Xfer(QC): 6 Toilet Transfer (QC): 6 Car Transfer (QC): 6 Does the Patient Walk: Yes Walk 10 feet (QC): 6 Walk 50ft with 2 Turns (QC): 6 Walk 150 ft (QC): 6 Walking 10ft on Uneven Surface: 6 1 Step (curb) (QC): 4 4 Steps (QC): 4 12 Steps (QC): 4 Picking up an Object (QC): 6 Does the Pt use WC or Scooter?: No Wheel 50 feet with 2 turns (QC: 9 Type: N/A Wheel 150 feet: 9 Type: N/A PT Plan Treatment/Plan Treatment Plan: Continue Plan of Care Treatment Plan: Bed Mobility, Concurrent Therapy, Education, Functional Activity Sonu, Functional Strength, Group Therapy, Gait, Safety, Therapeutic Exercise, Transfers Treatment Duration: Jun 26, 2022 Frequency: At least 5 of 7 days/Wk (IRF) Estimated Hrs Per Day: 1.5 hours per day Patient and/or Family Agrees t: Yes Safety Risks/Education Patient Education: Gait Training, Transfer Techniques, Correct Positioning, Disease Process, Safety Issues Teaching Recipient: Patient Teaching Methods: Demonstration, Discussion Response to Teaching: Verbalize Understanding, Return Demonstration, Reinforcement Needed Time/GCodes Time In: 1300 Time Out: 1400 Total Billed Treatment Time: 60 Total Billed Treatment 1,FA35m,GT10m,EX15m (60 m Co Rx) ABIMAEL SALAZAR SENIOR INTERNET SALES CONSULTANT Jun 03, 2022 14:14
--- NOTE | 2022-06-03 16:19 | History & Physical ---
DON PROCTOR 06/03/22 1618: History of Present Illness History of Present Illness Reason for visit/HPI Patient is a 71 year old female admitted to rehab floor following a right total knee arthoplasty. She had the procedure done on 06/01/[address] Hernandez at [facility]. Athroplasty was without complication, with surgical bandage still intact. She has a past medical history of degenerative joint disease. And a past surgical history of right meniscus arthoscopy. She is still experiencing mild pain and discomfort, but her current pain medication of oxycodone and tramadol is treating pain adequately. She has a decreased appetite since surgery, but is keeping food down. Her last bowel movement was on Tuesday (05/31/2022) before surgery and she has not had a bowel movement since. Patient had a potassium of 3.3 after surgery and was given a replacement regimen post operation. Patient denies any other complaints at this time. Date of Admission Jun 03, 2022 at 12:35 Date Seen by a Provider: Jun 03, 2022 Time Seen by a Provider: 16:19 I consulted on this patient on 06/03/22 16:04 Attending Physician Lucita Angelo DO Admitting Physician Admitting Physician: Kathi Bull DO Attending Physician: Kathi Bull DO Consult Allergies and Home Medications Allergies Coded Allergies: SARAHIANo Known Allergies (Verified Allergy, Unknown, 09/19/06) Patient Home Medication List Home Medication List Reviewed: Yes Acetaminophen (Tylenol Extra Strength) 500 Mg Tablet, 1,000 MG PO Q8H PRN for PAIN-MILD (1-4), (Reported) Entered as Reported by: JOSUÉ PAYTON on 06/03/221119 Last Action: Continued Anastrozole (Arimidex) 1 Mg Tablet, 1 MG PO DAILY, (Reported) Entered as Reported by: JOSUÉ PAYTON on 06/03/221119 Last Action: Continued Atorvastatin Calcium (Atorvastatin Calcium) 10 Mg Tablet, 10 MG PO DAILY, (Reported) Entered as Reported by: JOSUÉ PAYTON on 06/03/221119 Last Action: Continued Calcium Carbonate (Calcium Carbonate) 600 Mg Calcium (1500 Mg) Tablet, 600 MG PO BID, (Reported) Entered as Reported by: JOSUÉ PAYTON on 06/03/221119 Last Action: Continued Cholecalciferol (Vitamin D3) (Vitamin D3) 25 Mcg (1000 Unit) Capsule, 25 MCG PO BID, (Reported) Entered as Reported by: JOSUÉ PAYTON on 06/03/221119 Last Action: Converted Diclofenac Sodium (Diclofenac Sodium) 75 Mg Tablet.dr, 75 MG PO BID, (Reported) Entered as Reported by: JOSUÉ PAYTON on 06/09/22 1319 Last Action: Reviewed Docusate Sodium (Docusate Sodium) 100 Mg Capsule, 100 MG PO HS, (Reported) Entered as Reported by: JOSUÉ PAYTON on 06/03/221119 Last Action: Continued Metoprolol Succinate (Metoprolol Succinate) 50 Mg Tab.er.24h, 50 MG PO DAILY, (Reported) Entered as Reported by: JOSUÉ PAYTON on 06/03/221119 Last Action: Continued Pediatric Multivit No.203/Iron (Flintstones with Iron Tab Chew) 18 Mg Iron Tab.chew, 18 MG PO HS, (Reported) Entered as Reported by: JOSUÉ PAYTON on 06/03/221119 Last Action: Converted Tramadol HCl (Tramadol HCl) 50 Mg Tablet, 50-100 MG PO Q6H PRN for PAIN-MODERATE (5-7), (Reported) Entered as Reported by: JOSUÉ PAYTON on 06/03/221119 Last Action: Continued Discontinued Medications Ondansetron (Ondansetron Odt) 4 Mg Tab.rapdis, 4 MG SL Q4H PRN for NAUSEA/VOMITING Discontinued Reason: Duplicate Order Prescribed by: ROSELYN MOYER on 09/22/21 1648 Last Action: Discontinued [Prempro] , PO DAILY, (Reported) Discontinued Reason: Duplicate Order Entered as Reported by: JOY HERNANDEZ on 10/07/10 5666 Last Action: Discontinued Past Lyjttop-Nflxef-Qhekto Hx Patient Social History Tobacco Use?: No Substance use?: No Alcohol Use?: Yes Alcohol type: Other Alcohol Frequency: Rarely Pt feels they are or have been: No Immunizations Up To Date First/Initial COVID19 Vaccinat: NOV Second COVID19 Vaccination Nehemiah: DECEMBER Tetanus Booster (TDap): Less Than 5 Years Hepatitis A: No Hepatitis B: No Current Status Advance Directives: Yes Advance Directive Location: Home Communicates: Verbally Primary Language: Yemeni Preferred Spoken Language: Yemeni Is interpretation needed?: No Implanted or Applied Medical D: None Past Medical History Surgeries: Breast High Cholesterol, Hypertension Arthritis Breast Did You Recieve Any Treatments: Yes What Type of Treatment Did You: Surgical Intervention Review of Systems Constitutional: No chills, No fever EENTM: No hearing loss, No blurred vision Respiratory: No cough, No short of breath Cardiovascular: No chest pain, No palpitations Gastrointestinal: No abdominal pain; constipation : No Musculoskeletal: joint pain, joint swelling, muscle pain, muscle stiffness Skin: No change in color, No change in hair/nails Psychiatric/Neurological: Denies Anxiety, Denies Depressed Physical Exam Vital Signs Vital Signs - First Documented 06/03/22 12:35 Temp 36.8 Pulse 76 Resp 20 B/P (MAP) 132/62 (85) Pulse Ox 95 O2 Delivery Room Air Capillary Refill : Height, Weight, BMI Height: '" Weight: lbs. oz. kg; 39.16 BMI Method: General Appearance: No Apparent Distress, WD/WN HEENT: PERRL/EOMI, Moist Mucous Membranes Neck: Normal Inspection, Supple Respiratory: Lungs Clear, Normal Breath Sounds, No Accessory Muscle Use, No Respiratory Distress Cardiovascular: Regular Rate, Rhythm, No Gallop, No Murmur Gastrointestinal: Non Tender, Soft Rectal: Deferred Back: Normal Inspection Extremity: Swelling, Other (Right knee swelling, limited range of motion) Neurologic/Psychiatric: Alert, Oriented x3 Skin: Normal Color, Warm/Dry Lymphatic: No Adenopathy Assessment/Plan Assessment and Plan Total right knee arthoplasty Start PT and OT Hypokalemia Replacement was implemented HTN Continue home medication of HTN History of breast cancer Continue home medication Admission Diagnosis Admission Status: Observation KATHI BULL DO 06/09/222022: Allergies and Home Medications Allergies Coded Allergies: NKANo Known Allergies (Verified Allergy, Unknown, 09/19/06) Patient Home Medication List Acetaminophen (Tylenol Extra Strength) 500 Mg Tablet, 1,000 MG PO Q8H PRN for PAIN-MILD (1-4), (Reported) Entered as Reported by: JOSUÉ PAYTON on 06/03/221119 Last Action: Continued Anastrozole (Arimidex) 1 Mg Tablet, 1 MG PO DAILY, (Reported) Entered as Reported by: JOSUÉ PAYTON on 06/03/221119 Last Action: Continued Atorvastatin Calcium (Atorvastatin Calcium) 10 Mg Tablet, 10 MG PO DAILY, (Reported) Entered as Reported by: JOSUÉ PAYTON on 06/03/221119 Last Action: Continued Calcium Carbonate (Calcium Carbonate) 600 Mg Calcium (1500 Mg) Tablet, 600 MG PO BID, (Reported) Entered as Reported by: JOSUÉ PAYTON on 06/03/221119 Last Action: Continued Cholecalciferol (Vitamin D3) (Vitamin D3) 25 Mcg (1000 Unit) Capsule, 25 MCG PO BID, (Reported) Entered as Reported by: JOSUÉ PAYTON on 06/03/221119 Last Action: Converted Diclofenac Sodium (Diclofenac Sodium) 75 Mg Tablet.dr, 75 MG PO BID, (Reported) Entered as Reported by: JOSUÉ PAYTON on 06/09/22 1319 Last Action: Reviewed Docusate Sodium (Docusate Sodium) 100 Mg Capsule, 100 MG PO HS, (Reported) Entered as Reported by: JOSUÉ PAYTON on 06/03/221119 Last Action: Continued Metoprolol Succinate (Metoprolol Succinate) 50 Mg Tab.er.24h, 50 MG PO DAILY, (Reported) Entered as Reported by: JOSUÉ PAYTON on 06/03/221119 Last Action: Continued Pediatric Multivit No.203/Iron (Flintstones with Iron Tab Chew) 18 Mg Iron Tab.chew, 18 MG PO HS, (Reported) Entered as Reported by: JOSUÉ PAYTON on 06/03/221119 Last Action: Converted Tramadol HCl (Tramadol HCl) 50 Mg Tablet, 50-100 MG PO Q6H PRN for PAIN-MODERATE (5-7), (Reported) Entered as Reported by: JOSUÉ PAYTON on 06/03/221119 Last Action: Continued Discontinued Medications Ondansetron (Ondansetron Odt) 4 Mg Tab.rapdis, 4 MG SL Q4H PRN for NAUSEA/VOMITING Discontinued Reason: Duplicate Order Prescribed by: ROSELYN MOYER on 09/22/21 1648 Last Action: Discontinued [Prempro] , PO DAILY, (Reported) Discontinued Reason: Duplicate Order Entered as Reported by: JOY HERNANDEZ on 10/07/10 0817 Last Action: Discontinued Supervisory-Addendum Brief Verification & Attestation Participated in pt care: history, MDM, physical Personally performed: exam, history, MDM, supervision of care Care discussed with: Medical Student Procedures: n/a Results interpretation: Verified all documentation Verification and Attestation of Medical Student E/M Service A medical student performed and documented this service in my presence. I reviewed and verified all information documented by the medical student and made modifications to such information, when appropriate. I personally performed the physical exam and medical decision making. Kathi Bull, Jun 09, 2022,20:23 DON PROCTOR Jun 03, 2022 16:18 KATHI BULL DO Jun 09, 2022 20:23
[2022-06-03] MEDS ORDERED: ACETAMINOPHEN 500 MG TAB (TYLENOL) PO PRN (16:45)
[2022-06-03] MEDS: CALCIUM CARBONATE 600 MG (CALCARB) TAB PO SCH (17:02)
[2022-06-03] MEDS: SENNA W/DOCUSATE (SENOKOT S) TABLET PO SCH ×2 (17:40→20:50)
[2022-06-03] MEDS: polyethylene glycoL POWDER 17 GM (MIRALAX) PACK PO SCH ×2 (17:40→20:52)
[2022-06-03 19:39] VITALS: BP 160/80
--- NOTE | 2022-06-03 20:06 | PM&R Post Admission Assessment ---
PM&R Date of Visit: Jun 03, 2022 Time of Visit: 14:00 History of Present Illness Chief complaint: Right total knee replacement slow recovery History of present illness: This is a 71-year-old female of Dr. Angelo, previously with Dr. Hoover before his , who has a past medical history of breast cancer who is in need of aggressive PT and OT in order to regain function following an uneventful right total knee arthroplasty on 06/01/[address] Hernandez at [facility]. Prior level of function was independent and current level of functioning is moderate assistance and walking only 15 feet. She has a slow recovery who will require aggressive therapy in order to return back home. She is constipated and has not had a bowel movement since Tuesday. Pain is well controlled and we have restarted all home medications. Past Dentcab-Njyrhy-Gwvzqp Hx Past Med/Social Hx: Reviewed Nursing Past Med/Soc Hx, Reviewed and Corrections made Patient Social History Marrital Status: Employed/Student: retired Smoking Status: Never a Smoker Past Medical History Surgeries: Breast Cardiac: High Cholesterol, Hypertension Reproductive: No Musculoskeletal: Arthritis Cancer: Breast Did You Recieve Any Treatments: Yes What Type of Treatment Did You: Surgical Intervention Prior Level of Function Bed Mobility: 6 Transfers: 6 Gait: 6 Stairs: 6 Indoor Mobility (Ambulation): Independent Stairs: Independent Prior Devices Use: None Self Care: Independent Functional Cognition: Independent Current Level of Fuctioning Roll Left to Right: 4 Sit to Lyin Lying to Sitting/Side of Bed: 3 Sit to Stand: 3 Chair/Qda-tl-Hrqvb Xfer: 4 Car Transfer: 4 Does the Patient Walk: Yes Mode of Locomotion: Walk Anticipated Mode of Locomotion: Walk Walk 10 feet: 4 Walk 50 ft with 2 Turns: 4 Walk 150 ft: 4 Walking 10ft on uneven surface: 4 Gait Assistive Device: FWW Wheel 50 ft with 2 turns: 9 Wheel 150 ft: 9 Type of Wheelchair: N/A #of Steps: 5 1 Step (curb): 4 4 Steps: 4 12 Steps: 88 Picking up an Object: 88 Eatin (IND per pt report.) Oral Hygiene: 4 (Per pt report, standing at sink.) Shower/Bathe Self: 3 (Mod A requiredm for sit to stand at GBS in order to wash buttocks. min A to wash feet for thoroughness.) Upper Body Dressin (set up) Lower Body Dressin (Mod A sit to income tax analyst order to perform pant hike. Pt able to thread BLEs, min A pant hike.) On/Off Footwear: 2 (Pt able to doff gripper socks. total assist to doff compression socks and total assist to don compression socks/gripper socks.) Toileting Hygiene: 3 (Mod A to stand. Pt able to complete hygiene and min A with pant hike.) PM&R Allergy/Meds/Data Review Allergies Coded Allergies: SARAHIANo Known Allergies (Verified Allergy, Unknown, 09/19/06) Home Medications Scheduled Anastrozole (Arimidex), 1 MG PO DAILY, (Reported) Aspirin (Aspirin EC), 81 MG PO BID, (Reported) Atorvastatin Calcium (Atorvastatin Calcium), 10 MG PO DAILY, (Reported) Calcium Carbonate (Calcium Carbonate), 600 MG PO BID, (Reported) Cholecalciferol (Vitamin D3) (Vitamin D3), 25 MCG PO BID, (Reported) Docusate Sodium (Docusate Sodium), 100 MG PO HS, (Reported) Metoprolol Succinate (Metoprolol Succinate), 50 MG PO DAILY, (Reported) Pantoprazole Sodium (Pantoprazole Sodium), 40 MG PO 0800, (Reported) Pediatric Multivit No.203/Iron (Flintstones with Iron Tab Chew), 18 MG PO HS, (Reported) Scheduled PRN Acetaminophen (Tylenol Extra Strength), 1,000 MG PO Q8H PRN for PAIN-MILD (1-4), (Reported) Oxycodone Hcl (Oxyir Tablet), 5-10 MG PO EVERY 2 HOURS PRN for PAIN-SEVERE (8- 10), (Reported) Tramadol HCl (Tramadol HCl), 50-100 MG PO Q6H PRN for PAIN-MODERATE (5-7), (Reported) Discontinued Medications Ondansetron (Ondansetron Odt), 4 MG SL Q4H PRN for NAUSEA/VOMITING Discontinued Reason: Duplicate Order [Prempro], PO DAILY, (Reported) Discontinued Reason: Duplicate Order Current Medications Current Medications Reviewed Review of Systems Constitutional: see HPI, dizziness, malaise, weakness EENTM: no symptoms reported Respiratory: no symptoms reported Cardiovascular: no symptoms reported Gastrointestinal: constipation Genitourinary: no symptoms reported Musculoskeletal: back pain, joint pain Skin: no symptoms reported Psychiatric/Neurological: No Symptoms Reported All Other Systems Reviewed Negative Unless Noted: Yes Physical Exam Physical Exam Vital Signs Vital Signs - First Documented 06/03/22 12:35 Temp 36.8 Pulse 76 Resp 20 B/P (MAP) 132/62 (85) Pulse Ox 95 O2 Delivery Room Air Capillary Refill : Height, Weight, BMI Height: '" Weight: lbs. oz. kg; 39.16 BMI Method: General Appearance: No Apparent Distress, WD/WN, Chronically ill, Obese HEENT: PERRL/EOMI, Normal ENT Inspection, Pharynx Normal, Moist Mucous Membranes Neck: Normal Inspection, Supple Respiratory: Lungs Clear, Normal Breath Sounds, No Accessory Muscle Use, No Respiratory Distress Cardiovascular: Regular Rate, Rhythm, No Edema, No Gallop, No JVD, No Murmur Gastrointestinal: Non Tender, Soft Rectal: Deferred Back: Normal Inspection Extremity: Normal Capillary Refill, Normal Inspection, Normal Range of Motion (Except right leg), Non Tender, No Calf Tenderness, Swelling, Other (Right knee swelling, limited range of motion) Neurologic/Psychiatric: Alert, Oriented x3, No Motor/Sensory Deficits, Normal Mood/Affect, key account coordinator II-XII Norm as Tested Skin: Normal Color, Warm/Dry Lymphatic: No Adenopathy PM&R Medical Assessment & Plan REHAB/MEDICAL ASSESSMENT AND PLAN: REHAB IMPAIRMENT GROUP: Right total knee arthroplasty ETIOLOGIC DIAGNOSIS: Right total knee arthroplasty The comorbidities that impact the patients function and/or functional outcome by: Slow recovery, history of breast cancer, postop constipation REHAB PLAN: The patient is being admitted to our comprehensive inpatient rehabilitation facility and can tolerate the intensity of service consisting of at least: 180 minutes of therapy a day, 5 out of 7 days a week Rehab treatment will consist of: PT and OT will focus on regaining function with use of assistive devices in order to return back home to independent living with spouse The patient/family has a good understanding of our discharge process and will benefit from an interdisciplinary inpatient rehabilitation program. The patient has potential to make improvement and is in need of at least two of the following multidisciplinary therapies including but not limited to physical, occupational, speech, and prosthetics and orthotics. Additionally the patient will need services from respiratory, nutritional services, wound care, psychology, etc. (Customize this to each patient). Given the patients complex condition and risk of further medical complications, rehabilitation services cannot be safely or effectively provided at a lower level of care such as a prison facility. BARRIERS TO DISCHARGE: Slow recovery with pain right leg ESTIMATED LOS: 7 days DISPOSITION: Home RELEVANT CHANGES SINCE PREADMISSION SCREENING: I have compared the patients medical and functional status at the time of the preadmission screening and there are: No changes PROGNOSIS: Good REHABILITATION GOALS: 1.PT and OT will focus on regaining function with use of assistive devices in order to return back home to independent living with spouse All the above goals were reviewed with the patient and he/she is in agreement. By signing this document, I acknowledge that I have personally performed a full physical examination on this patient within 24 hours of admission to this inpatient rehabilitation facility and have determined the patient to be able to tolerate the above course of treatment at an intensive level for a reasonable period of time. I will be completing a detailed individualized Plan of Care for this patient by day #4 of the patients stay based upon the Preadmission Screen, the Post-Admission Evaluation, and the therapy evaluations. Admission Dx/Comorbidities: (1) History of total knee arthroplasty ICD Codes: Z96.659 - Presence of unspecified artificial knee joint Assessment/Plan Assessment and Plan Assess & Plan/Chief Complaint Assessment: Status post right total knee arthroplasty by Dr. Hernandez uncomplicated with slow recovery on 06/01/2022 History of breast cancer Postop constipation Hyperlipidemia Hypertension GERD Plan: PT and OT Walker Home meds Pain meds YNES BULL DO Jun 03, 2022 20:06
[2022-06-03] MEDS: ASPIRIN E.C. 81 MG (ECOTRIN) TAB PO SCH (20:50)
[2022-06-03] MEDS: MULTIVITAMINS LIQUID 15 ML UDC PO SCH (20:51)
[2022-06-03] MEDS: DOCUSATE SODIUM 100 MG (COLACE) CAP PO SCH (20:51)
[2022-06-03] MEDS: VITAMIN D3 25 MCG (1,000 UNITS) TABLET PO SCH (20:51)
[2022-06-03] MEDS ORDERED: [UNRECOGNIZED DRUG - REMARK] PO SCH (21:00)
[2022-06-03] MEDS ORDERED: NON-FORMULARY MEDICATION 1 EA EA (Cholecalciferol (Vitamin D3) (Vitamin D3) 25 MCG) PO SCH (21:00)
[2022-06-04 06:38] LABS: BASOPHILS % (AUTO) 0 % (0-10); EOSINOPHILS # (AUTO) 0.1 10^3/uL (0.0-0.3); EOSINOPHILS % (AUTO) 2 % (0-10); HEMATOCRIT 32 % (35-52); HEMOGLOBIN 10.8 g/dL (11.5-16.0); LYMPHOCYTES # (AUTO) 0.9 10^3/uL (1.0-4.0); LYMPHOCYTES % (AUTO) 14 % (12-44); MEAN CORPUSCULAR HEMOGLOBIN 31 pg (25-34); MEAN CORPUSCULAR HGB CONC 34 g/dL (32-36); MEAN CORPUSCULAR VOLUME 93 fL (80-99); MEAN PLATELET VOLUME 11.3 fL (9.0-12.2); MONOCYTES # (AUTO) 0.5 10^3/uL (0.0-1.0); MONOCYTES % (AUTO) 8 % (0-12); NEUTROPHILS # (AUTO) 4.8 10^3/uL (1.8-7.8); NEUTROPHILS % (AUTO) 76 % (42-75); PLATELET COUNT 163 10^3/uL (130-400); WHITE BLOOD COUNT 6.3 10^3/uL (4.3-11.0)
[2022-06-04 06:55] LABS: ALBUMIN 3.3 GM/DL (3.2-4.5); POTASSIUM 3.8 MMOL/L (3.6-5.0)
[2022-06-04 06:56] LABS: CALCIUM 9.7 MG/DL (8.5-10.1)
[2022-06-04 06:58] LABS: TOTAL PROTEIN 6.5 GM/DL (6.4-8.2)
[2022-06-04 07:01] LABS: CREATININE SERUM 0.7 MG/DL (0.60-1.30)
[2022-06-04 07:21] VITALS: BP 154/69
[2022-06-04] MEDS: SENNA W/DOCUSATE (SENOKOT S) TABLET PO SCH ×2 (08:14→21:04)
[2022-06-04] MEDS: ASPIRIN E.C. 81 MG (ECOTRIN) TAB PO SCH ×2 (08:14→21:04)
[2022-06-04] MEDS: VITAMIN D3 25 MCG (1,000 UNITS) TABLET PO SCH ×2 (08:14→21:04)
[2022-06-04] MEDS: PANTOPRAZOLE 40 MG (PROTONIX) TAB PO SCH (08:14)
[2022-06-04] MEDS: polyethylene glycoL POWDER 17 GM (MIRALAX) PACK PO SCH ×2 (08:15→21:02)
[2022-06-04] MEDS: meTOproloL SUCCINATE 50 MG (TOPROL XL) TAB PO SCH (08:15)
[2022-06-04] MEDS: CALCIUM CARBONATE 600 MG (CALCARB) TAB PO SCH ×2 (08:15→17:21)
[2022-06-04] MEDS: AtorvaSTATin TABLET 10 MG TABLET PO SCH (08:15)
[2022-06-04] MEDS: ANASTROZOLE 1 MG TAB (ARIMIDEX) PO SCH (08:16)
--- NOTE | 2022-06-04 09:02 | Physical Therapy Daily Note ---
PT Daily Note-Current Subjective Pt. agees to Rx, states she slept really well. Pt. states she has pain at 7/10. States she only took one of the pain pills they offered at 6am. Pt also states she could not fully extend her knee before surgery, nor could she SLR indep. Pt. inquires about CPM, educated pt. that it is a passive exercise and may help with pain but in this PTAs opinion it does not change filler leaf cutter long AROM outcome Pain Numeric Pain Scale: 7 Location: Right Location Body Site: Knee Pain Description: Ache Mental Status Patient Orientation: Normal For Age Attachments: Polar Pack Transfers SCALE: Activities may be completed with or without assistive devices. 0-Wrriultavt-jizdufb completes the activity by him/herself with no assistance from a helper. 5-Set-up or Clean-up Assistance-helper sets up or cleans up; patient completes activity. [place] assists only prior to or following the activity. 4-Supervision or Touching Assistance-helper provides verbal cues and/or touching/steadying and/or contact guard assistance as patient completes activity. Assistance may be provided throughout the activity or intermittently. 3-Partial/Moderate Assistance-helper does LESS THAN HALF the effort. [place] lifts, holds or supports trunk or limbs, but provides less than half the effort. 2-Substantial/Maximal Assistance-helper does MORE THAN HALF the effort. [place] lifts or holds trunk or limbs and provides more than half the effort. 2-Aaypqddqy-mgfjqj does ALL the effort. Patient does none of the effort to complete the activity. Or, the assistance of 2 or more helpers is required for the patient to complete the activity. If activity was not attempted, code reason: 7-Patient Refused. 9-Not Applicable-not attempted and the patient did not perform the activity before the current illness, exacerbation or injury. 10-Not Attempted due to Environmental Limitations-(lack of equipment, weather restraints, etc.). 88-Not Attempted due to Medical Conditions or Safety Concerns. Roll Left & Right (QC): 4 Sit to Lying (QC): 4 Lying to Sitting/Side of Bed(Q: 4 Sit to Stand (QC): 4 Chair/Wfs-jc-Rsgjb Xfer(QC): 4 needs more assist from lower surface, needs assist to lift LE into bed. Gait Training Does the Patient Walk?: Yes Walk 10 feet (QC): 4 Walk 50 ft with 2 Turns(QC): 4 Gait Persons Needed: 1 Gait Assistive Device: FWW flexed at knee, heavy wt bearing on FWW, flat feet , valgum fatigues very quickly 100ft x 2, 50 ft x 3 Exercises Supine Ex: Ankle pumps, Quad Set, Rolling, Heel Slides, Straight leg raise Supine Reps: 15 (x2 assisted) Seated Therapy Exercises: Ankle pumps, Hamstring Curls Seated Reps: 15 Treatments sit to stands, in out bed, TKR protocol, gait Assessment Current Status: Fair Progress pain and fatigue limit progress, polar pack seems to be malfunctioning, may use flexicold pack instead. PT Network Engineering Advisor Goals Network Engineering Advisor Goals PT Network Engineering Advisor Goals Time Frame: Jun 26, 2022 Roll Left & Right (QC): 6 Sit to Lying (QC): 6 Lying-Sitting on Side/Bed(QC): 6 Sit to Stand (QC): 6 Chair/Ydr-wx-Lxfxp Xfer(QC): 6 Toilet Transfer (QC): 6 Car Transfer (QC): 6 Does the Patient Walk: Yes Walk 10 feet (QC): 6 Walk 50ft with 2 Turns (QC): 6 Walk 150 ft (QC): 6 Walking 10ft on Uneven Surface: 6 1 Step (curb) (QC): 4 4 Steps (QC): 4 12 Steps (QC): 4 Picking up an Object (QC): 6 Does the Pt use WC or Scooter?: No Wheel 50 feet with 2 turns (QC: 9 Type: N/A Wheel 150 feet: 9 Type: N/A PT Plan Treatment/Plan Treatment Plan: Continue Plan of Care Treatment Plan: Bed Mobility, Concurrent Therapy, Education, Functional Activity Sonu, Functional Strength, Group Therapy, Gait, Safety, Therapeutic Exercise, Transfers Treatment Duration: Jun 26, 2022 Frequency: At least 5 of 7 days/Wk (IRF) Estimated Hrs Per Day: 1.5 hours per day Patient and/or Family Agrees t: Yes Safety Risks/Education Patient Education: Gait Training, Transfer Techniques, Correct Positioning, Disease Process, Safety Issues Teaching Recipient: Patient Teaching Methods: Demonstration, Discussion Response to Teaching: Verbalize Understanding, Return Demonstration, Reinforcement Needed Time/GCodes Time In: 800 Time Out: 900 Total Billed Treatment Time: 60 Total Billed Treatment 1,GT25m,FA15m,EX20mm ABIMAEL SALAZAR SUPERVISOR FITTING Jun 04, 2022 09:02
--- NOTE | 2022-06-04 10:11 | Occupational Ther Daily Note ---
OT Current Status-Daily Note Subjective Pt agreeable to OT Tx. Rates pain 4/10 in R knee. Mental Status/Objective Patient Orientation: Person, Place, Situation Attachments: Polar Pack ADL-Treatment Therapy Code Descriptions/Definitions Functional [place] Measure: 0=Not Assessed/NA 4=Minimal Assistance 1=Total Assistance 5=Supervision or Setup 2=Maximal Assistance 6=Modified [place] 3=Moderate Assistance 7=Complete IndependenceSCALE: Activities may be completed with or without assistive devices. 6-Nhztxzoccv-uvjpzkq completes the activity by him/herself with no assistance from a helper. 5-Set-up or Clean-up Assistance-helper sets up or cleans up; patient completes activity. [place] assists only prior to or following the activity. 4-Supervision or Touching Assistance-helper provides verbal cues and/or touching/steadying and/or contact guard assistance as patient completes activity. Assistance may be provided throughout the activity or intermittently. 3-Partial/Moderate Assistance-helper does LESS THAN HALF the effort. [place] lifts, holds or supports trunk or limbs, but provides less than half the effort. 2-Substantial/Maximal Assistance-helper does MORE THAN HALF the effort. [place] lifts or holds trunk or limbs and provides more than half the effort. 7-Emgwdecfw-pqivfc does ALL the effort. Patient does none of the effort to complete the activity. Or, the assistance of 2 or more helpers is required for the patient to complete the activity. If activity was not attempted, code reason: 7-Patient Refused. 9-Not Applicable-not attempted and the patient did not perform the activity before the current illness, exacerbation or injury. 10-Not Attempted due to Environmental Limitations-(lack of equipment, weather restraints, etc.). 88-Not Attempted due to Medical Conditions or Safety Concerns. Other Treatment Pt up in w/c in room, agreeable to OT Tx. Pt used FWW to perform functional mobility to therapy gym, [facility], 1 seated rest break. OT tx focused on increasing BUE strength and activity tolerance in order to increase independence with functional transfers/mobility and ADLs. Pt completed arm bike x15 mins, 20 Watt resistance with 2 rest break. Pt had difficulty keeping her eyes open during task, stating she is tired today. Pt completed arm bike at slow pace. She then removed beads from moderate resistance (green) theraputty. Pt completed peg board task, following printed patterns, 1lb wrist weights BUEs. Pt completed x7 patterns, no errors. Pt used FWW to head back to her room, SBA, slow pace. Pt made it ~1/2 way back to her room, requesting to sit. Pt sat in w/c and wheeled back to her room, then transferred from w/c to EOB, CGA. Assist with RLE for sit to supine transfer. OT placed polar pack on R knee, and knee gomez superintendent ammunition storage under R knee per pt request. Post tx, pt in bed, call light in reach and all needs met. Education OT Patient Education: Correct positioning, Energy conservation, Modified ADL techniques, Progress toward Goal/Update tx plan, Purpose of tx/functional activities, Rehab process Teaching Recipient: Patient Teaching Methods: Discussion Response to Teaching: Verbalize Understanding OT Short Term Goals Short Term Goals Time Frame: Jun 11, 2022 Shower/bathe self: 4 Lower body dressin Putting on/taking off footwear: 4 OT Custodial Goals Collar Separator Goals Time Frame: Jun 25, 2022 Eating (QC): 6 Oral Hygiene (QC): 6 Toileting Hygiene (QC): 6 Shower/Bathe Self (QC): 5 Upper Body Dressing (QC): 6 Lower Body Dressing (QC): 6 On/Off Footwear (QC): 6 Additional Goals: 1-Demonstrate ADL Tasks, 2-Verbalize Understanding, 3- ImproveStrength/Sonu 1=Demonstrate adherence to instructed precautions during ADL tasks. 2=Patient will verbalize/demonstrate understanding of assistive devices/modifications for ADL. 3=Patient will improve strength/tolerance for activity to enable patient to perform ADL's. OT Education/Plan Problem List/Assessment Assessment: Decreased Activ Tolerance, Decreased UE Strength, Impaired Funct Balance, Impaired I ADL's, Impaired Self-Care Skills Discharge Recommendations Plan/Recommendations: Continue POC Treatment Plan/Plan of Care Patient would benefit from OT for education, treatment and training to promote independence in ADL's, mobility, safety and/or upper extremity function for ADL's. Plan of Care: ADL Retraining, Functional Mobility, Group Exercise/Act as Ind, UE Funct Exercise/Act Treatment Duration: Jun 25, 2022 Frequency: At least 5 of 7 days/Wk (IRF) Estimated Hrs Per Day: 1.5 hours per day Rehab Potential: Good Time/GCodes Start Time: 09:30 Stop Time: 11:00 Total Time Billed (hr/min): 90 Billed Treatment Time 1, EX (15'), FA 5 (75') ARDHA DUBOIS OT Jun 04, 2022 10:11
--- NOTE | 2022-06-04 10:26 | Individualized Plan of Care ---
Individualized Plan of Care Rehab Nursing IPOC Order Admission Date Jun 03, 2022 at 12:35 Current Orders Orders Admission Order(Inpt,Obs,Sdc) (06/03/22 06:16) Vital Signs: Per Unit Policy ( 08,16,00 (06/03/22 06:16) Mateusz Hamm (06/03/22 06:16) Sequential Compression Device (06/03/22 06:16) Supervisor Core Drilling-Inpt Rehab Con (06/03/22 06:16) Rehab Nursing Orders-Ipoc (06/03/22 06:16) Physical Therapy Rehab Orders (06/03/22 06:16) Occupational Therapy Rehab Ord (06/03/22 06:16) Speech Therapy Rehab Orders (06/03/22 06:16) Cbc With Automated Diff (06/04/22 06:00) Comprehensive Metabolic Panel (06/04/22 06:00) Precautions (Aru) (06/03/22 06:16) Weekly Weight WEEK (06/03/22 06:16) Rehab-Intensity Of Therapy (06/03/22 06:16) Initiate Admission Nursing Pro .admission (06/03/22 06:16) Alprazolam Tablet (Xanax Tablet) (06/03/22 06:30) Calcium Carbonate Chew Tablet (Antacid C (06/03/22 06:30) Diphenhydramine Tablet (Benadryl Tablet) (06/03/22 06:30) Docusate Sodium Capsule (Colace Capsule) (06/03/22 09:00) Docusate Sodium Capsule (Colace Capsule) (06/03/22 06:30) Bisacodyl Suppository (Dulcolax Supposit (06/03/22 06:30) Lactulose Oral Solution (Enulose Oral So (06/03/22 06:30) Na Phos/Na Biphos Enema (Fleet Enema Daniel (06/03/22 06:30) Guaifenesin/Codeine Syrup (Robitussin Ac (06/03/22 06:30) Loperamide Tablet (Imodium Tablet) (06/03/22 06:30) Melatonin Tablet (Melatonin Tablet) (06/03/22 06:30) Polyethylene Glycol Powder Pkt (Miralax (06/03/22 09:00) Ondansetron Oral Dissolve Tab (Zofran (06/03/22 06:30) Senna S Tablet (Senokot S Tablet) (06/03/22 09:00) Acetaminophen Tablet/Caplet (Tylenol T (06/03/22 06:30) Code/Resuscitation (06/03/22 06:16) Initiate Admission Nursing Pro .admission (06/03/22 06:16) Admission Arrival Bed Request (06/03/22 12:52) Patient Visit (06/03/22 ) Speech Sound Lang Comp (06/03/22 ) Treat. Speech/Lang/Voice (06/03/22 ) Patient Visit (06/03/22 ) Pt Eval Moderate Complexity (06/03/22 ) General/Regular (06/03/22 Lunch) Patient Visit (06/03/22 ) Functional Activities, Ea 15 (06/03/22 ) Exercise Therap, Ea 15 Min (06/03/22 ) Gait Training, Ea 15 Min (06/03/22 ) Acetaminophen Tablet (Tylenol Tablet) (06/03/22 16:45) Anastrozole Tablet (Arimidex Tablet) (06/04/22 09:00) Aspirin Enteric Coated Tablet (Ecotrin T (06/03/22 21:00) Atorvastatin Tablet (Lipitor Tablet) (06/04/22 09:00) Calcium Carbonate Tablet (Calcarb 600 Ta (06/03/22 18:00) Docusate Sodium Capsule (Colace Capsule) (06/03/22 21:00) Metoprolol Succinate (Xl) Tab (Toprol Xl (06/04/22 09:00) Oxycodone Immediate Rel Tablet (Oxyir Ta (06/03/22 16:45) Pantoprazole Tablet (Protonix Tablet) (06/04/22 08:00) Tramadol Tablet (Ultram Tablet) (06/03/22 16:45) (Nf) Cholecalciferol (Vitamin D3) (Vitam (06/03/22 21:00) (Nf) Pediatric Multivit No.203/Iron (Fli (06/03/22 21:00) Cholecalciferol Capsule/Tablet (Vitamin (06/03/22 21:00) Multivitamins Liquid (Geritol Liquid) (06/03/22 21:00) Patient Visit (06/04/22 ) Gait Training, Ea 15 Min (06/04/22 ) Exercise Therap, Ea 15 Min (06/04/22 ) Functional Activities, Ea 15 (06/04/22 ) Polar Pack Assessment/Order (06/04/22 14:49) Rehab Nursing Orders: Ongoing Assess. of Function Status, Bladder Management, Bladder Scan, Bladder Training, Bowel Management, Bowel Training, Disease Management & Educaiton, DVT Prophylaxis, Fall Prevention, Fluid/Electrolyte/Nutrition Mgmt, Infection Prevention, Medication Management & Education, Management of Risks & Complications, Management of Skin Intergrity, Nutrition Management, Pain Management, Patient/Family Support, Safety Management, Wound Management Intensity of Therapy to be met Patient to be seen: Min.3h per day/5 of 7d PT IPOC Problem List: Activity Tolerance, Functional Strength, Safety, Balance, Gait, Transfer, Bed Mobility, ROM Treatment Plan: Continue Plan of Care Bed Mobility, Concurrent Therapy, Education, Functional Activity Sonu, Functional Strength, Group Therapy, Gait, Safety, Therapeutic Exercise, Transfers Treatment Duration: Jun 26, 2022 Frequency: At least 5 of 7 days/Wk (IRF) Estimated Hrs Per Day: 1.5 hours per day OT IPOC Problems: Decreased Activ Tolerance, Decreased UE Strength, Impaired Funct Balance, Impaired I ADL's, Impaired Self-Care Skills OT Treatment, Training and Edu: Yes Plan of Care: ADL Retraining, Functional Mobility, Group Exercise/Act as Ind, UE Funct Exercise/Act Treatment Duration: Jun 25, 2022 Frequency: At least 5 of 7 days/Wk (IRF) Estimated Hrs Per Day: 1.[address] IPOC Speech Therapy Treatment Plan: Continue Plan of Care Treatment Duration: Jun 03, 2022 Frequency: 1 time per week Estimated Hrs Per Day: .5 hour per day Supervisor Core Drilling/Case Mgmt Supervisor Core Drilling/Case Managemen: Discharge Planning Dietitian/Pupil Personnel Worker Dietitian/Pupil Personnel Worker to monitor nutritional status and make changes and/or recommendations as needed and work with speech pathology on dietary upgrades as the occur. Physician IPOC Medical Issues being managed closely and that require the 24 hour availability of a physician: Recent below the knee amputation and nnw-ea-cdsggfr diabetes will require close monitoring to prevent wound infection and jem-ck-ppfwsol sugar level which could lead to decompensation Medical Issues: Bowel/Bladder Function, DVT Prophylaxis, Falls Precautions, Fluid/Electrolyte/Nutrition Balance, Infection Protection, Pain Management, Weight Bearing Precautions, Wound Care Brief Synthesis of Preadmission Screen, Post-Admission Evaluation, and Therapy Evaluations: PT and OT will focus on regaining function with use of assistive devices along with wheelchair mobility in order to prevent falls and increase independence in order to return back home Medical Prognosis: Good Anticipated Length of Stay: 10 days YNES BULL DO Jun 04, 2022 10:26
--- NOTE | 2022-06-04 10:26 | PM&R Progress Note ---
Subjective HPI/CC On Admission Date Seen by Provider: Jun 04, 2022 Time Seen by Provider: 10:30 Subjective/Events-last exam 06/04/2022: Pt is doing well No bowels moving yet Suppository will be offered too Otherwise doing well having no new concerns Review of Systems General: Fatigue, Malaise Gastrointestinal: Constipation Musculoskeletal: leg pain Objective Exam Vital Signs Vital Signs Date Time Temp Pulse Resp B/P (MAP) Pulse Ox O2 Delivery O2 Flow Rate FiO2 06/04/22 20:20 Room Air 06/04/22 19:31 36.5 77 20 118/70 (86) 97 Capillary Refill : General Appearance: No Apparent Distress, WD/WN HEENT: PERRL/EOMI, Moist Mucous Membranes Neck: Normal Inspection, Supple Respiratory: Lungs Clear, Normal Breath Sounds, No Accessory Muscle Use, No Respiratory Distress Cardiovascular: Regular Rate, Rhythm, No Gallop, No Murmur Gastrointestinal: Non Tender, Soft Rectal: Deferred Back: Normal Inspection Extremity: Swelling, Other (Right knee swelling, limited range of motion) Neurologic/Psychiatric: Alert, Oriented x3 Skin: Normal Color, Warm/Dry Lymphatic: No Adenopathy Results/Procedures Lab Laboratory Tests 06/04/22 06:22 Patient resulted labs reviewed. FIM Transfers Therapy Code Descriptions/Definitions Functional [place] Measure: 0=Not Assessed/NA 4=Minimal Assistance 1=Total Assistance 5=Supervision or Setup 2=Maximal Assistance 6=Modified [place] 3=Moderate Assistance 7=Complete IndependenceSCALE: Activities may be completed with or without assistive devices. 1-Cexlfmmete-tcjcjgf completes the activity by him/herself with no assistance from a helper. 5-Set-up or Clean-up Assistance-helper sets up or cleans up; patient completes activity. [place] assists only prior to or following the activity. 4-Supervision or Touching Assistance-helper provides verbal cues and/or touching/steadying and/or contact guard assistance as patient completes activity. Assistance may be provided throughout the activity or intermittently. 3-Partial/Moderate Assistance-helper does LESS THAN HALF the effort. [place] lifts, holds or supports trunk or limbs, but provides less than half the effort. 2-Substantial/Maximal Assistance-helper does MORE THAN HALF the effort. [place] lifts or holds trunk or limbs and provides more than half the effort. 3-Pjunqeyjk-nkgumq does ALL the effort. Patient does none of the effort to complete the activity. Or, the assistance of 2 or more helpers is required for the patient to complete the activity. If activity was not attempted, code reason: 7-Patient Refused. 9-Not Applicable-not attempted and the patient did not perform the activity before the current illness, exacerbation or injury. 10-Not Attempted due to Environmental Limitations-(lack of equipment, weather restraints, etc.). 88-Not Attempted due to Medical Conditions or Safety Concerns. Roll Left to Right (QC): 4 Sit to Lying (QC): 4 Sit to Stand (QC): 4 Chair/Fxb-jg-Wkfkq Xfer(QC): 4 Car Transfer (QC): 4 Gait Training Does the Patient Walk?: Yes Walk 10 feet (QC): 4 Walk 50 ft with 2 Turns(QC): 4 Walk 150 ft (QC): 4 Walking 10ft/uneven surface-QC: 4 Gait Persons Needed: 1 Gait Assistive Device: FWW Wheelchair Training Wheel 50 ft with 2 turns (QC): 9 Wheel 150 ft (QC): 9 Type of Wheelchair: N/A Stair Training #of Steps: 5 1 Step (curb) (QC): 4 4 Steps (QC): 4 12 Steps (QC): 88 Balance Picking up an Object (QC): 88 ADL-Treatment Eating (QC): 6 (IND per pt report.) Oral Hygiene (QC): 4 (Per pt report, standing at sink.) Shower/Bathe Self (QC): 3 (Mod A requiredm for sit to stand at GBS in order to wash buttocks. min A to wash feet for thoroughness.) Upper Body Dressing (QC): 5 (set up) Lower Body Dressing (QC): 3 (Mod A sit to rail engineer order to perform pant hike. Pt able to thread BLEs, min A pant hike.) On/Off Footwear (QC): 2 (Pt able to doff gripper socks. total assist to doff compression socks and total assist to don compression socks/gripper socks.) Toileting Hygiene (QC): 3 (Mod A to stand. Pt able to complete hygiene and min A with pant hike.) Assessment/Plan Assessment and Plan Assess & Plan/Chief Complaint Assessment: Status post right total knee arthroplasty by Dr. Hernandez uncomplicated with slow recovery on 06/01/2022 History of breast cancer Postop constipation Hyperlipidemia Hypertension GERD Plan: PT and OT Walker Home meds Pain meds 06/04/2022: Pain control Bowel regimen (1) History of total knee arthroplasty YNES BULL DO Jun 04, 2022 10:26
--- NOTE | 2022-06-04 13:42 | Physical Therapy Daily Note ---
PT Daily Note-Current Subjective Agrees to Rx, present, and notes progress Pain Numeric Pain Scale: 5-Moderate Pain Location: Right Location Body Site: Knee Pain Description: Ache Mental Status Patient Orientation: Normal For Age Attachments: Polar Pack, Other-See Comments (knee gomez support foam) Transfers SCALE: Activities may be completed with or without assistive devices. 5-Xtrvwbkdfe-mhbsvnt completes the activity by him/herself with no assistance from a helper. 5-Set-up or Clean-up Assistance-helper sets up or cleans up; patient completes activity. [place] assists only prior to or following the activity. 4-Supervision or Touching Assistance-helper provides verbal cues and/or touching/steadying and/or contact guard assistance as patient completes ac tivity. Assistance may be provided throughout the activity or intermittently. 3-Partial/Moderate Assistance-helper does LESS THAN HALF the effort. [place] lifts, holds or supports trunk or limbs, but provides less than half the effort. 2-Substantial/Maximal Assistance-helper does MORE THAN HALF the effort. [place] lifts or holds trunk or limbs and provides more than half the effort. 8-Hrmijpkgj-batpdg does ALL the effort. Patient does none of the effort to complete the activity. Or, the assistance of 2 or more helpers is required for the patient to complete the activity. If activity was not attempted, code reason: 7-Patient Refused. 9-Not Applicable-not attempted and the patient did not perform the activity before the current illness, exacerbation or injury. 10-Not Attempted due to Environmental Limitations-(lack of equipment, weather restraints, etc.). 88-Not Attempted due to Medical Conditions or Safety Concerns. Roll Left & Right (QC): 6 Sit to Lying (QC): 4 Sit to Stand (QC): 6 Chair/Zmi-jg-Lthts Xfer(QC): 4 Gait Training Does the Patient Walk?: Yes Walk 150 ft (QC): 4 Gait Persons Needed: 1 Gait Assistive Device: FWW pt. progressed this afternoon to step through gait at a better pattern and velocity , more fluid , less c/o fatigue with gait , less c/o pain, almost indep for SLR and in to bed Exercises Seated Therapy Exercises: Sit to stand, Long arc quads Seated Reps: 12 NuStep Minutes: 10 NuStep Workload: 2 Treatments gait TRFs, much work on ext and flex on Nustep, on Knee gomez after Rx , black at hand Assessment Current Status: Good Progress noted progress in all phases PT Chcf Goals Chcf Goals PT Chcf Goals Time Frame: Jun 26, 2022 Roll Left & Right (QC): 6 Sit to Lying (QC): 6 Lying-Sitting on Side/Bed(QC): 6 Sit to Stand (QC): 6 Chair/Fon-df-Qtfmd Xfer(QC): 6 Toilet Transfer (QC): 6 Car Transfer (QC): 6 Does the Patient Walk: Yes Walk 10 feet (QC): 6 Walk 50ft with 2 Turns (QC): 6 Walk 150 ft (QC): 6 Walking 10ft on Uneven Surface: 6 1 Step (curb) (QC): 4 4 Steps (QC): 4 12 Steps (QC): 4 Picking up an Object (QC): 6 Does the Pt use WC or Scooter?: No Wheel 50 feet with 2 turns (QC: 9 Type: N/A Wheel 150 feet: 9 Type: N/A PT Plan Treatment/Plan Treatment Plan: Continue Plan of Care Treatment Plan: Bed Mobility, Concurrent Therapy, Education, Functional Activity Sonu, Functional Strength, Group Therapy, Gait, Safety, Therapeutic E xercise, Transfers Treatment Duration: Jun 26, 2022 Frequency: At least 5 of 7 days/Wk (IRF) Estimated Hrs Per Day: 1.5 hours per day Patient and/or Family Agrees t: Yes Safety Risks/Education Patient Education: Gait Training, Transfer Techniques, Correct Positioning, Disease Process, Safety Issues Teaching Recipient: Patient Teaching Methods: Demonstration, Discussion Response to Teaching: Verbalize Understanding, Return Demonstration, Reinforcement Needed Time/GCodes Time In: 1300 Time Out: 1345 Total Billed Treatment Time: 30 Total Billed Treatment 1,GT15m,EX15m ABIMAEL SALAZAR SLOT FLOOR PERSON Jun 04, 2022 13:42
[2022-06-04 19:31] VITALS: BP 118/70
[2022-06-04] MEDS: DOCUSATE SODIUM 100 MG (COLACE) CAP PO SCH (21:04)
[2022-06-04] MEDS: MULTIVITAMINS LIQUID 15 ML UDC PO SCH (21:04)
--- NOTE | 2022-06-05 06:32 | PM&R Progress Note ---
Subjective HPI/CC On Admission Date Seen by Provider: Jun 05, 2022 Time Seen by Provider: 12:00 Subjective/Events-last exam 06/05/2022: Doing much better Pain controlled BM+ after supp given last night at 1000 No falls 06/04/2022: Pt is doing well No bowels moving yet Suppository will be offered too Otherwise doing well having no new concerns Review of Systems General: Fatigue, Malaise Musculoskeletal: leg pain Objective Exam Vital Signs Vital Signs Date Time Temp Pulse Resp B/P (MAP) Pulse Ox O2 Delivery O2 Flow Rate FiO2 06/05/22 09:00 0 Room Air 06/05/22 07:21 37.2 85 18 143/82 (102) Capillary Refill : General Appearance: No Apparent Distress, WD/WN HEENT: PERRL/EOMI, Moist Mucous Membranes Neck: Normal Inspection, Supple Respiratory: Lungs Clear, Normal Breath Sounds, No Accessory Muscle Use, No Respiratory Distress Cardiovascular: Regular Rate, Rhythm, No Gallop, No Murmur Gastrointestinal: Non Tender, Soft Rectal: Deferred Back: Normal Inspection Extremity: Swelling, Other (Right knee swelling, limited range of motion) Neurologic/Psychiatric: Alert, Oriented x3 Skin: Normal Color, Warm/Dry Lymphatic: No Adenopathy Results/Procedures Lab Patient resulted labs reviewed. FIM Transfers Therapy Code Descriptions/Definitions Functional [place] Measure: 0=Not Assessed/NA 4=Minimal Assistance 1=Total Assistance 5=Supervision or Setup 2=Maximal Assistance 6=Modified [place] 3=Moderate Assistance 7=Complete IndependenceSCALE: Activities may be completed with or without assistive devices. 0-Oitrzpwzup-ozhhgsu completes the activity by him/herself with no assistance from a helper. 5-Set-up or Clean-up Assistance-helper sets up or cleans up; patient completes activity. [place] assists only prior to or following the activity. 4-Supervision or Touching Assistance-helper provides verbal cues and/or touching/steadying and/or contact guard assistance as patient completes activity. Assistance may be provided throughout the activity or intermittently. 3-Partial/Moderate Assistance-helper does LESS THAN HALF the effort. [place] lifts, holds or supports trunk or limbs, but provides less than half the effort. 2-Substantial/Maximal Assistance-helper does MORE THAN HALF the effort. [place] lifts or holds trunk or limbs and provides more than half the effort. 0-Odvkiffpw-ahkdny does ALL the effort. Patient does none of the effort to complete the activity. Or, the assistance of 2 or more helpers is required for the patient to complete the activity. If activity was not attempted, code reason: 7-Patient Refused. 9-Not Applicable-not attempted and the patient did not perform the activity before the current illness, exacerbation or injury. 10-Not Attempted due to Environmental Limitations-(lack of equipment, weather restraints, etc.). 88-Not Attempted due to Medical Conditions or Safety Concerns. Roll Left to Right (QC): 6 Sit to Lying (QC): 4 Sit to Stand (QC): 6 Chair/Xhk-tl-Mksbz Xfer(QC): 4 Car Transfer (QC): 4 Gait Training Does the Patient Walk?: Yes Walk 10 feet (QC): 4 Walk 50 ft with 2 Turns(QC): 4 Walk 150 ft (QC): 4 Walking 10ft/uneven surface-QC: 4 Gait Persons Needed: 1 Gait Assistive Device: FWW Wheelchair Training Wheel 50 ft with 2 turns (QC): 9 Wheel 150 ft (QC): 9 Type of Wheelchair: N/A Stair Training #of Steps: 5 1 Step (curb) (QC): 4 4 Steps (QC): 4 12 Steps (QC): 88 Balance Picking up an Object (QC): 88 ADL-Treatment Eating (QC): 6 (IND per pt report.) Oral Hygiene (QC): 4 (Per pt report, standing at sink.) Shower/Bathe Self (QC): 3 (Mod A requiredm for sit to stand at GBS in order to wash buttocks. min A to wash feet for thoroughness.) Upper Body Dressing (QC): 5 (set up) Lower Body Dressing (QC): 3 (Mod A sit to biochemical engineer order to perform pant hike. Pt able to thread BLEs, min A pant hike.) On/Off Footwear (QC): 2 (Pt able to doff gripper socks. total assist to doff compression socks and total assist to don compression socks/gripper socks.) Toileting Hygiene (QC): 3 (Mod A to stand. Pt able to complete hygiene and min A with pant hike.) Assessment/Plan Assessment and Plan Assess & Plan/Chief Complaint Assessment: Status post right total knee arthroplasty by Dr. Hernandez uncomplicated with slow recovery on 06/01/2022 History of breast cancer Postop constipation Hyperlipidemia Hypertension GERD Plan: PT and OT Walker Home meds Pain meds 06/04/2022: Pain control Bowel regimen 06/05/2022: Maintain BM regimen Fall risk (1) History of total knee arthroplasty YNES BULL DO Jun 05, 2022 06:32
[2022-06-05 07:21] VITALS: BP 143/82
[2022-06-05] MEDS: CALCIUM CARBONATE 600 MG (CALCARB) TAB PO SCH ×2 (08:09→18:19)
[2022-06-05] MEDS: meTOproloL SUCCINATE 50 MG (TOPROL XL) TAB PO SCH (08:10)
[2022-06-05] MEDS: VITAMIN D3 25 MCG (1,000 UNITS) TABLET PO SCH ×2 (08:10→21:11)
[2022-06-05] MEDS: ASPIRIN E.C. 81 MG (ECOTRIN) TAB PO SCH ×2 (08:10→21:11)
[2022-06-05] MEDS: AtorvaSTATin TABLET 10 MG TABLET PO SCH (08:10)
[2022-06-05] MEDS: PANTOPRAZOLE 40 MG (PROTONIX) TAB PO SCH (08:10)
[2022-06-05] MEDS: ANASTROZOLE 1 MG TAB (ARIMIDEX) PO SCH (08:10)
[2022-06-05] MEDS: polyethylene glycoL POWDER 17 GM (MIRALAX) PACK PO SCH ×2 (09:14→19:43)
[2022-06-05] MEDS: SENNA W/DOCUSATE (SENOKOT S) TABLET PO SCH ×2 (09:14→19:43)
--- NOTE | 2022-06-05 10:53 | Physical Therapy Daily Note ---
PT Daily Note-Current Subjective Pt in recliner upon arrival and agrees to PT. Says her knee is feeling okay today. Pain Numeric Pain Scale: 6 Location: Right Location Body Site: Knee Mental Status Patient Orientation: Person, Place, Time, Situation Transfers SCALE: Activities may be completed with or without assistive devices. 0-Evmztavzlb-nnseexv completes the activity by him/herself with no assistance from a helper. 5-Set-up or Clean-up Assistance-helper sets up or cleans up; patient completes activity. [place] assists only prior to or following the activity. 4-Supervision or Touching Assistance-helper provides verbal cues and/or touching/steadying and/or contact guard assistance as patient completes activity. Assistance may be provided throughout the activity or intermittently. 3-Partial/Moderate Assistance-helper does LESS THAN HALF the effort. [place] lifts, holds or supports trunk or limbs, but provides less than half the effort. 2-Substantial/Maximal Assistance-helper does MORE THAN HALF the effort. [place] lifts or holds trunk or limbs and provides more than half the effort. 9-Allhpklbb-snutnj does ALL the effort. Patient does none of the effort to complete the activity. Or, the assistance of 2 or more helpers is required for the patient to complete the activity. If activity was not attempted, code reason: 7-Patient Refused. 9-Not Applicable-not attempted and the patient did not perform the activity before the current illness, exacerbation or injury. 10-Not Attempted due to Environmental Limitations-(lack of equipment, weather restraints, etc.). 88-Not Attempted due to Medical Conditions or Safety Concerns. Sit to Stand (QC): 4 Gait Training Does the Patient Walk?: Yes Distance: 150' x 2 Walk 10 feet (QC): 4 Walk 50 ft with 2 Turns(QC): 4 Walk 150 ft (QC): 4 Gait Persons Needed: 1 Gait Assistive Device: FWW antalgic, slow Exercises NuStep Minutes: 10 NuStep Workload: 4 Treatments Pt TFs back to recliner post treatment w/ needs met and call light nearby. Assessment Current Status: Good Progress Pt requires cues for hand and foot placement during TFs. Pt very slow w/ all TFs d/t pain. Pt gait improves some towards end of treatment. PT Cylinder Block Hole Reliner Goals Cylinder Block Hole Reliner Goals PT Cylinder Block Hole Reliner Goals Time Frame: Jun 26, 2022 Roll Left & Right (QC): 6 Sit to Lying (QC): 6 Lying-Sitting on Side/Bed(QC): 6 Sit to Stand (QC): 6 Chair/Cso-cc-Sbjwf Xfer(QC): 6 Toilet Transfer (QC): 6 Car Transfer (QC): 6 Does the Patient Walk: Yes Walk 10 feet (QC): 6 Walk 50ft with 2 Turns (QC): 6 Walk 150 ft (QC): 6 Walking 10ft on Uneven Surface: 6 1 Step (curb) (QC): 4 4 Steps (QC): 4 12 Steps (QC): 4 Picking up an Object (QC): 6 Does the Pt use WC or Scooter?: No Wheel 50 feet with 2 turns (QC: 9 Type: N/A Wheel 150 feet: 9 Type: N/A PT Plan Problem List Problem List: Activity Tolerance, Functional Strength, Gait Treatment/Plan Treatment Plan: Continue Plan of Care Treatment Plan: Bed Mobility, Concurrent Therapy, Education, Functional Activit y Sonu, Functional Strength, Group Therapy, Gait, Safety, Therapeutic Exercise, Transfers Treatment Duration: Jun 26, 2022 Frequency: At least 5 of 7 days/Wk (IRF) Estimated Hrs Per Day: 1.5 hours per day Patient and/or Family Agrees t: Yes Safety Risks/Education Patient Education: Transfer Techniques, Correct Positioning Teaching Recipient: Patient Teaching Methods: Discussion Response to Teaching: Return Demonstration Time/GCodes Time In: 834 Time Out: 904 Total Billed Treatment Time: 30 Total Billed Treatment 1, Ex x 2 YAO BOBO PTA Jun 05, 2022 10:53
[2022-06-05 20:00] VITALS: BP 112/62
[2022-06-05] MEDS: DOCUSATE SODIUM 100 MG (COLACE) CAP PO SCH (21:11)
--- NOTE | 2022-06-06 06:53 | PM&R Progress Note ---
Subjective HPI/CC On Admission Date Seen by Provider: Jun 06, 2022 Time Seen by Provider: 12:00 Subjective/Events-last exam 06/06/2022: Patient doing really well Family visiting today Pain control but still using pain pill and every 4 hours Bowels moving well 06/05/2022: Doing much better Pain controlled BM+ after supp given last night at 1000 No falls 06/04/2022: Pt is doing well No bowels moving yet Suppository will be offered too Otherwise doing well having no new concerns Review of Systems General: Fatigue, Malaise Objective Exam Vital Signs Vital Signs Date Time Temp Pulse Resp B/P (MAP) Pulse Ox O2 Delivery O2 Flow Rate FiO2 06/06/22 08:36 0 Room Air 06/06/22 07:30 37.2 95 20 118/76 (90) Capillary Refill : General Appearance: No Apparent Distress, WD/WN HEENT: PERRL/EOMI, Moist Mucous Membranes Neck: Normal Inspection, Supple Respiratory: Lungs Clear, Normal Breath Sounds, No Accessory Muscle Use, No Respiratory Distress Cardiovascular: Regular Rate, Rhythm, No Gallop, No Murmur Gastrointestinal: Non Tender, Soft Rectal: Deferred Back: Normal Inspection Extremity: Swelling, Other (Right knee swelling, limited range of motion) Neurologic/Psychiatric: Alert, Oriented x3 Skin: Normal Color, Warm/Dry Lymphatic: No Adenopathy Results/Procedures Lab Patient resulted labs reviewed. FIM Transfers Therapy Code Descriptions/Definitions Functional [place] Measure: 0=Not Assessed/NA 4=Minimal Assistance 1=Total Assistance 5=Supervision or Setup 2=Maximal Assistance 6=Modified [place] 3=Moderate Assistance 7=Complete IndependenceSCALE: Activities may be completed with or without assistive devices. 4-Rbijiljoyn-kpzpnvf completes the activity by him/herself with no assistance from a helper. 5-Set-up or Clean-up Assistance-helper sets up or cleans up; patient completes activity. [place] assists only prior to or following the activity. 4-Supervision or Touching Assistance-helper provides verbal cues and/or touching/steadying and/or contact guard assistance as patient completes activity. Assistance may be provided throughout the activity or intermittently. 3-Partial/Moderate Assistance-helper does LESS THAN HALF the effort. [place] lifts, holds or supports trunk or limbs, but provides less than half the effort. 2-Substantial/Maximal Assistance-helper does MORE THAN HALF the effort. [place] lifts or holds trunk or limbs and provides more than half the effort. 6-Jkxgqyqro-favwgn does ALL the effort. Patient does none of the effort to complete the activity. Or, the assistance of 2 or more helpers is required for the patient to complete the activity. If activity was not attempted, code reason: 7-Patient Refused. 9-Not Applicable-not attempted and the patient did not perform the activity before the current illness, exacerbation or injury. 10-Not Attempted due to Environmental Limitations-(lack of equipment, weather restraints, etc.). 88-Not Attempted due to Medical Conditions or Safety Concerns. Roll Left to Right (QC): 6 Sit to Lying (QC): 4 Sit to Stand (QC): 4 Chair/Rpj-im-Pzdhe Xfer(QC): 4 Car Transfer (QC): 4 Gait Training Does the Patient Walk?: Yes Distance: 150' x 2 Walk 10 feet (QC): 4 Walk 50 ft with 2 Turns(QC): 4 Walk 150 ft (QC): 4 Walking 10ft/uneven surface-QC: 4 Gait Persons Needed: 1 Gait Assistive Device: FWW Wheelchair Training Wheel 50 ft with 2 turns (QC): 9 Wheel 150 ft (QC): 9 Type of Wheelchair: N/A Stair Training #of Steps: 5 1 Step (curb) (QC): 4 4 Steps (QC): 4 12 Steps (QC): 88 Balance Picking up an Object (QC): 88 ADL-Treatment Eating (QC): 6 (IND per pt report.) Oral Hygiene (QC): 4 (Per pt report, standing at sink.) Shower/Bathe Self (QC): 3 (Mod A requiredm for sit to stand at GBS in order to wash buttocks. min A to wash feet for thoroughness.) Upper Body Dressing (QC): 5 (set up) Lower Body Dressing (QC): 3 (Mod A sit to hvac sheet metal installer order to perform pant hike. Pt able to thread BLEs, min A pant hike.) On/Off Footwear (QC): 2 (Pt able to doff gripper socks. total assist to doff compression socks and total assist to don compression socks/gripper socks.) Toileting Hygiene (QC): 3 (Mod A to stand. Pt able to complete hygiene and min A with pant hike.) Assessment/Plan Assessment and Plan Assess & Plan/Chief Complaint Assessment: Status post right total knee arthroplasty by Dr. Hernandez uncomplicated with slow recovery on 06/01/2022 History of breast cancer Postop constipation Hyperlipidemia Hypertension GERD Plan: PT and OT Walker Home meds Pain meds 06/04/2022: Pain control Bowel regimen 06/05/2022: Maintain BM regimen Fall risk 06/06/2022: Supportive care Monitor closely (1) History of total knee arthroplasty YNES BULL DO Jun 06, 2022 06:53
[2022-06-06 07:30] VITALS: BP 118/76
[2022-06-06] MEDS: AtorvaSTATin TABLET 10 MG TABLET PO SCH (07:45)
[2022-06-06] MEDS: MULTIVIT W/MINERALS TAB (THERAGRAN M) PO SCH (07:45)
[2022-06-06] MEDS: PANTOPRAZOLE 40 MG (PROTONIX) TAB PO SCH (07:45)
[2022-06-06] MEDS: CALCIUM CARBONATE 600 MG (CALCARB) TAB PO SCH ×2 (07:45→17:16)
[2022-06-06] MEDS: VITAMIN D3 25 MCG (1,000 UNITS) TABLET PO SCH ×2 (07:46→21:26)
[2022-06-06] MEDS: ASPIRIN E.C. 81 MG (ECOTRIN) TAB PO SCH ×2 (07:46→21:26)
[2022-06-06] MEDS: meTOproloL SUCCINATE 50 MG (TOPROL XL) TAB PO SCH (07:46)
[2022-06-06] MEDS: ANASTROZOLE 1 MG TAB (ARIMIDEX) PO SCH (07:46)
[2022-06-06] MEDS: polyethylene glycoL POWDER 17 GM (MIRALAX) PACK PO SCH ×2 (09:25→20:00)
[2022-06-06] MEDS: SENNA W/DOCUSATE (SENOKOT S) TABLET PO SCH ×2 (09:27→20:00)
[2022-06-06 20:05] VITALS: BP 142/64
[2022-06-06] MEDS: DOCUSATE SODIUM 100 MG (COLACE) CAP PO SCH (21:27)
[2022-06-07] MEDS: MULTIVIT W/MINERALS TAB (THERAGRAN M) PO SCH (05:53)
[2022-06-07 06:43] LABS: BASOPHILS # (AUTO) 0.1 10^3/uL (0.0-0.1); BASOPHILS % (AUTO) 1 % (0-10); EOSINOPHILS # (AUTO) 0.1 10^3/uL (0.0-0.3); EOSINOPHILS % (AUTO) 2 % (0-10); HEMATOCRIT 32 % (35-52); HEMOGLOBIN 10.5 g/dL (11.5-16.0); LYMPHOCYTES # (AUTO) 1.3 10^3/uL (1.0-4.0); LYMPHOCYTES % (AUTO) 21 % (12-44); MEAN CORPUSCULAR HEMOGLOBIN 31 pg (25-34); MEAN CORPUSCULAR HGB CONC 33 g/dL (32-36); MEAN CORPUSCULAR VOLUME 94 fL (80-99); MEAN PLATELET VOLUME 10.9 fL (9.0-12.2); MONOCYTES # (AUTO) 0.6 10^3/uL (0.0-1.0); MONOCYTES % (AUTO) 9 % (0-12); NEUTROPHILS # (AUTO) 3.9 10^3/uL (1.8-7.8); NEUTROPHILS % (AUTO) 66 % (42-75); PLATELET COUNT 254 10^3/uL (130-400); WHITE BLOOD COUNT 5.9 10^3/uL (4.3-11.0)
[2022-06-07 07:03] LABS: ALBUMIN 3.5 GM/DL (3.2-4.5); CALCIUM 9.6 MG/DL (8.5-10.1); CREATININE SERUM 0.85 MG/DL (0.60-1.30); TOTAL PROTEIN 6.5 GM/DL (6.4-8.2)
--- NOTE | 2022-06-07 07:15 | PM&R Progress Note ---
Subjective HPI/CC On Admission Date Seen by Provider: Jun 07, 2022 Time Seen by Provider: 12:00 Subjective/Events-last exam 06/07/2022: Doing well BM+ Pain controlled Reviewed meds and labs 06/06/2022: Patient doing really well Family visiting today Pain control but still using pain pill and every 4 hours Bowels moving well 06/05/2022: Doing much better Pain controlled BM+ after supp given last night at 1000 No falls 06/04/2022: Pt is doing well No bowels moving yet Suppository will be offered too Otherwise doing well having no new concerns Review of Systems General: Fatigue, Malaise Objective Exam Vital Signs Vital Signs Date Time Temp Pulse Resp B/P (MAP) Pulse Ox O2 Delivery O2 Flow Rate FiO2 06/07/22 08:53 Room Air 06/07/22 07:53 36.8 80 16 130/62 (84) 95 Capillary Refill : General Appearance: No Apparent Distress, WD/WN HEENT: PERRL/EOMI, Moist Mucous Membranes Neck: Normal Inspection, Supple Respiratory: Lungs Clear, Normal Breath Sounds, No Accessory Muscle Use, No Respiratory Distress Cardiovascular: Regular Rate, Rhythm, No Gallop, No Murmur Gastrointestinal: Non Tender, Soft Rectal: Deferred Back: Normal Inspection Extremity: Swelling, Other (Right knee swelling, limited range of motion) Neurologic/Psychiatric: Alert, Oriented x3 Skin: Normal Color, Warm/Dry Lymphatic: No Adenopathy Results/Procedures Lab Laboratory Tests 06/07/22 06:00 Patient resulted labs reviewed. FIM Transfers Therapy Code Descriptions/Definitions Functional [place] Measure: 0=Not Assessed/NA 4=Minimal Assistance 1=Total Assistance 5=Supervision or Setup 2=Maximal Assistance 6=Modified [place] 3=Moderate Assistance 7=Complete IndependenceSCALE: Activities may be completed with or without assistive devices. 6-Szfyzcirzm-fjfcwkx completes the activity by him/herself with no assistance from a helper. 5-Set-up or Clean-up Assistance-helper sets up or cleans up; patient completes activity. [place] assists only prior to or following the activity. 4-Supervision or Touching Assistance-helper provides verbal cues and/or touching/steadying and/or contact guard assistance as patient completes activity. Assistance may be provided throughout the activity or intermittently. 3-Partial/Moderate Assistance-helper does LESS THAN HALF the effort. [place] lifts, holds or supports trunk or limbs, but provides less than half the effort. 2-Substantial/Maximal Assistance-helper does MORE THAN HALF the effort. [place] lifts or holds trunk or limbs and provides more than half the effort. 5-Rdasoxxtq-lajjnq does ALL the effort. Patient does none of the effort to complete the activity. Or, the assistance of 2 or more helpers is required for the patient to complete the activity. If activity was not attempted, code reason: 7-Patient Refused. 9-Not Applicable-not attempted and the patient did not perform the activity before the current illness, exacerbation or injury. 10-Not Attempted due to Environmental Limitations-(lack of equipment, weather restraints, etc.). 88-Not Attempted due to Medical Conditions or Safety Concerns. Roll Left to Right (QC): 6 Sit to Lying (QC): 4 Sit to Stand (QC): 4 Chair/Ejc-zt-Qnivg Xfer(QC): 4 Car Transfer (QC): 4 Gait Training Does the Patient Walk?: Yes Distance: 150' x 2 Walk 10 feet (QC): 4 Walk 50 ft with 2 Turns(QC): 4 Walk 150 ft (QC): 4 Walking 10ft/uneven surface-QC: 4 Gait Persons Needed: 1 Gait Assistive Device: FWW Wheelchair Training Wheel 50 ft with 2 turns (QC): 9 Wheel 150 ft (QC): 9 Type of Wheelchair: N/A Stair Training #of Steps: 5 1 Step (curb) (QC): 4 4 Steps (QC): 4 12 Steps (QC): 88 Balance Picking up an Object (QC): 88 ADL-Treatment Eating (QC): 6 (IND per pt report.) Oral Hygiene (QC): 4 (Per pt report, standing at sink.) Shower/Bathe Self (QC): 3 (Mod A requiredm for sit to stand at GBS in order to wash buttocks. min A to wash feet for thoroughness.) Upper Body Dressing (QC): 5 (set up) Lower Body Dressing (QC): 3 (Mod A sit to corporate financial analyst order to perform pant hike. Pt able to thread BLEs, min A pant hike.) On/Off Footwear (QC): 2 (Pt able to doff gripper socks. total assist to doff compression socks and total assist to don compression socks/gripper socks.) Toileting Hygiene (QC): 3 (Mod A to stand. Pt able to complete hygiene and min A with pant hike.) Assessment/Plan Assessment and Plan Assess & Plan/Chief Complaint Assessment: Status post right total knee arthroplasty by Dr. Hernandez uncomplicated with slow recovery on 06/01/2022 History of breast cancer Postop constipation Hyperlipidemia Hypertension GERD Plan: PT and OT Walker Home meds Pain meds 06/04/2022: Pain control Bowel regimen 06/05/2022: Maintain BM regimen Fall risk 06/06/2022: Supportive care Monitor closely 06/07/2022: Improved status (1) History of total knee arthroplasty YNES BULL DO Jun 07, 2022 07:15
[2022-06-07 07:53] VITALS: BP 130/62
[2022-06-07] MEDS: AtorvaSTATin TABLET 10 MG TABLET PO SCH (08:40)
[2022-06-07] MEDS: VITAMIN D3 25 MCG (1,000 UNITS) TABLET PO SCH ×2 (08:40→20:25)
[2022-06-07] MEDS: CALCIUM CARBONATE 600 MG (CALCARB) TAB PO SCH ×2 (08:40→17:58)
[2022-06-07] MEDS: meTOproloL SUCCINATE 50 MG (TOPROL XL) TAB PO SCH (08:40)
[2022-06-07] MEDS: PANTOPRAZOLE 40 MG (PROTONIX) TAB PO SCH (08:40)
[2022-06-07] MEDS: ASPIRIN E.C. 81 MG (ECOTRIN) TAB PO SCH ×2 (08:40→20:25)
--- NOTE | 2022-06-07 09:01 | Physical Therapy Daily Note ---
PT Daily Note-Current Subjective Pt. agrees to Rx. Rates R knee pain at 6/10 after Rx. Pain Numeric Pain Scale: 6 Location: Right Location Body Site: Knee Pain Description: Ache Mental Status Patient Orientation: Normal For Age Transfers SCALE: Activities may be completed with or without assistive devices. 0-Tgqpcsxyma-yowlwec completes the activity by him/herself with no assistance from a helper. 5-Set-up or Clean-up Assistance-helper sets up or cleans up; patient completes activity. [place] assists only prior to or following the activity. 4-Supervision or Touching Assistance-helper provides verbal cues and/or touching/steadying and/or contact guard assistance as patient completes activity. Assistance may be provided throughout the activity or intermittently. 3-Partial/Moderate Assistance-helper does LESS THAN HALF the effort. [place] lifts, holds or supports trunk or limbs, but provides less than half the effort. 2-Substantial/Maximal Assistance-helper does MORE THAN HALF the effort. [place] lifts or holds trunk or limbs and provides more than half the effort. 9-Tvhtwycwv-disqcx does ALL the effort. Patient does none of the effort to complete the activity. Or, the assistance of 2 or more helpers is required for the patient to complete the activity. If activity was not attempted, code reason: 7-Patient Refused. 9-Not Applicable-not attempted and the patient did not perform the activity before the current illness, exacerbation or injury. 10-Not Attempted due to Environmental Limitations-(lack of equipment, weather restraints, etc.). 88-Not Attempted due to Medical Conditions or Safety Concerns. Roll Left & Right (QC): 6 Sit to Lying (QC): 4 Lying to Sitting/Side of Bed(Q: 6 Sit to Stand (QC): 6 Chair/Qhx-uw-Zgfbk Xfer(QC): 6 needs assist RLE in to bed Gait Training Does the Patient Walk?: Yes Walk 10 feet (QC): 6 Walk 50 ft with 2 Turns(QC): 6 Walk 150 ft (QC): 6 Gait Persons Needed: 1 Gait Assistive Device: FWW right knee flexed, heel strike improves after pt has walked a bit. pt. conts heavy wt bearing on FWW and flexed trunk. gait pattern improved with more equal step length and step thru pattern Stair Training Stair Training: Handrails/: 2 handrails #of Steps: 4 1 Step (curb) (QC): 4 4 Steps (QC): 4 Stairs: Pattern: Step to Exercises Supine Ex: Ankle pumps, Quad Set, Heel Slides, Short Arc Quads, Straight leg raise (assisted right), Hip abd/add Supine Reps: 15 Seated Therapy Exercises: Ankle pumps, Sit to stand Seated Reps: 10 NuStep Minutes: 10 NuStep Workload: 2 Treatments TRFs gait TKR protocol, Nustep, steps Assessment Current Status: Good Progress slow improvement, AROM 14 to 85 PT Group Home Goals Agriculture Professor Goals PT Agriculture Professor Goals Time Frame: Jun 26, 2022 Roll Left & Right (QC): 6 Sit to Lying (QC): 6 Lying-Sitting on Side/Bed(QC): 6 Sit to Stand (QC): 6 Chair/Ejh-cg-Xypxr Xfer(QC): 6 Toilet Transfer (QC): 6 Car Transfer (QC): 6 Does the Patient Walk: Yes Walk 10 feet (QC): 6 Walk 50ft with 2 Turns (QC): 6 Walk 150 ft (QC): 6 Walking 10ft on Uneven Surface: 6 1 Step (curb) (QC): 4 4 Steps (QC): 4 12 Steps (QC): 4 Picking up an Object (QC): 6 Does the Pt use WC or Scooter?: No Wheel 50 feet with 2 turns (QC: 9 Type: N/A Wheel 150 feet: 9 Type: N/A PT Plan Treatment/Plan Treatment Plan: Continue Plan of Care Treatment Plan: Bed Mobility, Concurrent Therapy, Education, Functional Activity Sonu, Functional Strength, Group Therapy, Gait, Safety, Therapeutic Exercise, Transfers Treatment Duration: Jun 26, 2022 Frequency: At least 5 of 7 days/Wk (IRF) Estimated Hrs Per Day: 1.5 hours per day Patient and/or Family Agrees t: Yes Safety Risks/Education Patient Education: Gait Training, Transfer Techniques, Steps, Correct Positioning, Disease Process, Safety Issues Teaching Recipient: Patient Teaching Methods: Demonstration, Discussion Response to Teaching: Verbalize Understanding, Return Demonstration, Reinforcement Needed Time/GCodes Time In: 800 Time Out: 900 Total Billed Treatment Time: 60 Total Billed Treatment 1,GT15m,FA15m,EX30m ABIMAEL SALAZAR PTA Jun 07, 2022 09:01
[2022-06-07] MEDS: ANASTROZOLE 1 MG TAB (ARIMIDEX) PO SCH (09:04)
[2022-06-07] MEDS: polyethylene glycoL POWDER 17 GM (MIRALAX) PACK PO SCH ×2 (09:04→20:25)
[2022-06-07] MEDS: SENNA W/DOCUSATE (SENOKOT S) TABLET PO SCH ×2 (10:05→20:25)
--- NOTE | 2022-06-07 10:25 | Occupational Ther Daily Note ---
OT Current Status-Daily Note Subjective Pt alert, sitting in recliner. Pt agrees to therapy. No c/o pain at this time. Mental Status/Objective Patient Orientation: Person, Place, Time, Situation ADL-Treatment Pt declines shower, stating that she had one yesterday. Pt stated that she already washed face and completed oral care/grooming. Therapy Code Descriptions/Definitions Functional [place] Measure: 0=Not Assessed/NA 4=Minimal Assistance 1=Total Assistance 5=Supervision or Setup 2=Maximal Assistance 6=Modified [place] 3=Moderate Assistance 7=Complete IndependenceSCALE: Activities may be completed with or without assistive devices. 2-Wldcerxalj-ivggywf completes the activity by him/herself with no assistance from a helper. 5-Set-up or Clean-up Assistance-helper sets up or cleans up; patient completes activity. [place] assists only prior to or following the activity. 4-Supervision or Touching Assistance-helper provides verbal cues and/or touching/steadying and/or contact guard assistance as patient completes activity. Assistance may be provided throughout the activity or intermittently. 3-Partial/Moderate Assistance-helper does LESS THAN HALF the effort. [place] lifts, holds or supports trunk or limbs, but provides less than half the effort. 2-Substantial/Maximal Assistance-helper does MORE THAN HALF the effort. [place] lifts or holds trunk or limbs and provides more than half the effort. 0-Kivywmncu-mhtwvt does ALL the effort. Patient does none of the effort to complete the activity. Or, the assistance of 2 or more helpers is required for the patient to complete the activity. If activity was not attempted, code reason: 7-Patient Refused. 9-Not Applicable-not attempted and the patient did not perform the activity before the current illness, exacerbation or injury. 10-Not Attempted due to Environmental Limitations-(lack of equipment, weather restraints, etc.). 88-Not Attempted due to Medical Conditions or Safety Concerns. Other Treatment Sit <--> Stand, SBA throughout session on varying surface heights. Pt completed B UE strengthening exercises to increase strength and activity tolerance for daily functional tasks. Skilled instruction required for correct technique and positioning. Light resistance theraband and HEP given to pt and pt completed 6 exercises 2 sets 10 reps each before fatigue. Pt then completed wrist flex/ext/uln dev/rad dev using 2# wt, 3 sets 10 reps each. Medium/heavy resistance therapy sponge given working on belt builder/pinch strengthening 1 set 20 reps of each. After session, pt sitting in recliner with call light/phone in reach. All needs met in room. OT Short Term Goals Short Term Goals Time Frame: Jun 11, 2022 Shower/bathe self: 4 Lower body dressin Putting on/taking off footwear: 4 OT Card Grader Goals Card Grader Goals Time Frame: Jun 25, 2022 Eating (QC): 6 Oral Hygiene (QC): 6 Toileting Hygiene (QC): 6 Shower/Bathe Self (QC): 5 Upper Body Dressing (QC): 6 Lower Body Dressing (QC): 6 On/Off Footwear (QC): 6 Additional Goals: 1-Demonstrate ADL Tasks, 2-Verbalize Understanding, 3- ImproveStrength/Sonu 1=Demonstrate adherence to instructed precautions during ADL tasks. 2=Patient will verbalize/demonstrate understanding of assistive devices/modifications for ADL. 3=Patient will improve strength/tolerance for activity to enable patient to perform ADL's. OT Education/Plan Problem List/Assessment Assessment: Decreased Activ Tolerance, Decreased UE Strength Discharge Recommendations Plan/Recommendations: Continue POC Treatment Plan/Plan of Care Patient would benefit from OT for education, treatment and training to promote independence in ADL's, mobility, safety and/or upper extremity function for ADL's. Plan of Care: ADL Retraining, Functional Mobility, Group Exercise/Act as Ind, UE Funct Exercise/Act Treatment Duration: Jun 25, 2022 Frequency: At least 5 of 7 days/Wk (IRF) Estimated Hrs Per Day: 1.5 hours per day Rehab Potential: Good Time/GCodes Start Time: 09:30 Stop Time: 10:30 Total Time Billed (hr/min): 60 Billed Treatment Time 1 visit-EX 4 (50 min) PATTI NAYLOR Jun 07, 2022 10:24
--- NOTE | 2022-06-07 14:27 | Therapy Group Daily Note ---
Therapy Daily Group Note Patient Education Topic Exercises Exercises LE Seated Exercise, Stretching, Gross Motor, UE Exercise Session Ratio (pt:therapist): 4:1 Goal of Session: UE/LE Strengthing Goal Met for this Session: Yes Pt Benefit of Group: Contributions to Others, Increased Functional Strength, Socialization Other/Notes Pt. participated in group PT session this date. Pt. ambulated using FWW to and from then sat in arm chair for session. Pt. was social, introduced herself and shared and interacted appropriately. Pts faced one another in groups either side of a net and played balloon volleyball, reaching and wt shifting ,side to side and for and back. Pts also participated in UE exercises using PVC pipe , Pts were lead through cervical exercises and some lower extremity exercises as well. A fun display of "punny toys " were demonstrated and pts guessed their meaning . Pts were educated in bed positioning and how to manage this. Pt. was assisted back to room after rx with call black at hand and needs met Start Time: 13:00 Stop Time: 14:00 Total Billed Treatment Time: 60 Total Billed Treatment 1,GRP ABIMAEL SALAZAR FRONT END WEB DESIGNER Jun 07, 2022 14:27
[2022-06-07 19:44] VITALS: BP 124/76
[2022-06-07] MEDS: DOCUSATE SODIUM 100 MG (COLACE) CAP PO SCH (20:25)
[2022-06-08] MEDS: MULTIVIT W/MINERALS TAB (THERAGRAN M) PO SCH (06:53)
--- NOTE | 2022-06-08 06:53 | PM&R Progress Note ---
Subjective HPI/CC On Admission Date Seen by Provider: Jun 08, 2022 Time Seen by Provider: 08:30 Subjective/Events-last exam 06/08/2022: No major issues BM treatment will increase Pain controlled 06/07/2022: Doing well BM+ Pain controlled Reviewed meds and labs 06/06/2022: Patient doing really well Family visiting today Pain control but still using pain pill and every 4 hours Bowels moving well 06/05/2022: Doing much better Pain controlled BM+ after supp given last night at 1000 No falls 06/04/2022: Pt is doing well No bowels moving yet Suppository will be offered too Otherwise doing well having no new concerns Review of Systems General: Fatigue, Malaise Musculoskeletal: leg pain Objective Exam Vital Signs Vital Signs Date Time Temp Pulse Resp B/P (MAP) Pulse Ox O2 Delivery O2 Flow Rate FiO2 06/08/22 08:01 Room Air 06/08/22 07:16 36.6 64 18 133/71 (91) 97 Capillary Refill : General Appearance: No Apparent Distress, WD/WN HEENT: PERRL/EOMI, Moist Mucous Membranes Neck: Normal Inspection, Supple Respiratory: Lungs Clear, Normal Breath Sounds, No Accessory Muscle Use, No Respiratory Distress Cardiovascular: Regular Rate, Rhythm, No Gallop, No Murmur Gastrointestinal: Non Tender, Soft Rectal: Deferred Back: Normal Inspection Extremity: Swelling, Other Neurologic/Psychiatric: Alert, Oriented x3 Skin: Normal Color, Warm/Dry Lymphatic: No Adenopathy Results/Procedures Lab Patient resulted labs reviewed. FIM Transfers Therapy Code Descriptions/Definitions Functional [place] Measure: 0=Not Assessed/NA 4=Minimal Assistance 1=Total Assistance 5=Supervision or Setup 2=Maximal Assistance 6=Modified [place] 3=Moderate Assistance 7=Complete IndependenceSCALE: Activities may be completed with or without assistive devices. 6-Pqhjrznojk-sbiquvb completes the activity by him/herself with no assistance from a helper. 5-Set-up or Clean-up Assistance-helper sets up or cleans up; patient completes activity. [place] assists only prior to or following the activity. 4-Supervision or Touching Assistance-helper provides verbal cues and/or touching/steadying and/or contact guard assistance as patient completes activity. Assistance may be provided throughout the activity or intermittently. 3-Partial/Moderate Assistance-helper does LESS THAN HALF the effort. [place] lifts, holds or supports trunk or limbs, but provides less than half the effort. 2-Substantial/Maximal Assistance-helper does MORE THAN HALF the effort. [place] lifts or holds trunk or limbs and provides more than half the effort. 0-Gdaigzffn-qlmcsq does ALL the effort. Patient does none of the effort to complete the activity. Or, the assistance of 2 or more helpers is required for the patient to complete the activity. If activity was not attempted, code reason: 7-Patient Refused. 9-Not Applicable-not attempted and the patient did not perform the activity before the current illness, exacerbation or injury. 10-Not Attempted due to Environmental Limitations-(lack of equipment, weather restraints, etc.). 88-Not Attempted due to Medical Conditions or Safety Concerns. Roll Left to Right (QC): 6 Sit to Lying (QC): 4 Sit to Stand (QC): 6 Chair/Bjw-pa-Ytlyo Xfer(QC): 6 Car Transfer (QC): 4 Gait Training Does the Patient Walk?: Yes Distance: 150' x 2 Walk 10 feet (QC): 6 Walk 50 ft with 2 Turns(QC): 6 Walk 150 ft (QC): 6 Walking 10ft/uneven surface-QC: 4 Gait Persons Needed: 1 Gait Assistive Device: FWW Wheelchair Training Wheel 50 ft with 2 turns (QC): 9 Wheel 150 ft (QC): 9 Type of Wheelchair: N/A Stair Training Stair Training: Handrails/: 2 handrails #of Steps: 4 1 Step (curb) (QC): 4 4 Steps (QC): 4 12 Steps (QC): 88 Stairs: Pattern: Step to Balance Picking up an Object (QC): 88 ADL-Treatment Eating (QC): 6 (IND per pt report.) Oral Hygiene (QC): 4 (Per pt report, standing at sink.) Shower/Bathe Self (QC): 3 (Mod A requiredm for sit to stand at GBS in order to wash buttocks. min A to wash feet for thoroughness.) Upper Body Dressing (QC): 5 (set up) Lower Body Dressing (QC): 3 (Mod A sit to instrument specialist order to perform pant hike. Pt able to thread BLEs, min A pant hike.) On/Off Footwear (QC): 2 (Pt able to doff gripper socks. total assist to doff compression socks and total assist to don compression socks/gripper socks.) Toileting Hygiene (QC): 3 (Mod A to stand. Pt able to complete hygiene and min A with pant hike.) Assessment/Plan Assessment and Plan Assess & Plan/Chief Complaint Assessment: Status post right total knee arthroplasty by Dr. Hernandez uncomplicated with slow recovery on 06/01/2022 History of breast cancer Postop constipation Hyperlipidemia Hypertension GERD Plan: PT and OT Walker Home meds Pain meds 06/04/2022: Pain control Bowel regimen 06/05/2022: Maintain BM regimen Fall risk 06/06/2022: Supportive care Monitor closely 06/07/2022: Improved status 06/08/2022: Continue pain management BM treatment to increase (1) History of total knee arthroplasty YNES BULL DO Jun 08, 2022 06:53
[2022-06-08 07:16] VITALS: BP 133/71
[2022-06-08] MEDS: CALCIUM CARBONATE 600 MG (CALCARB) TAB PO SCH ×2 (07:46→17:12)
[2022-06-08] MEDS: PANTOPRAZOLE 40 MG (PROTONIX) TAB PO SCH (07:46)
[2022-06-08] MEDS: AtorvaSTATin TABLET 10 MG TABLET PO SCH (07:48)
[2022-06-08] MEDS: VITAMIN D3 25 MCG (1,000 UNITS) TABLET PO SCH ×2 (07:49→20:37)
[2022-06-08] MEDS: meTOproloL SUCCINATE 50 MG (TOPROL XL) TAB PO SCH (07:49)
[2022-06-08] MEDS: polyethylene glycoL POWDER 17 GM (MIRALAX) PACK PO SCH ×2 (07:49→20:43)
[2022-06-08] MEDS: SENNA W/DOCUSATE (SENOKOT S) TABLET PO SCH ×2 (07:49→20:43)
[2022-06-08] MEDS: ASPIRIN E.C. 81 MG (ECOTRIN) TAB PO SCH ×2 (07:53→20:37)
[2022-06-08] MEDS: ANASTROZOLE 1 MG TAB (ARIMIDEX) PO SCH (07:54)
--- NOTE | 2022-06-08 08:28 | Occupational Ther Daily Note ---
OT Current Status-Daily Note Subjective Pt up in recliner, agreeable to OT tx. Mental Status/Objective Patient Orientation: Person, Place, Time, Situation ADL-Treatment Therapy Code Descriptions/Definitions Functional [place] Measure: 0=Not Assessed/NA 4=Minimal Assistance 1=Total Assistance 5=Supervision or Setup 2=Maximal Assistance 6=Modified [place] 3=Moderate Assistance 7=Complete IndependenceSCALE: Activities may be completed with or without assistive devices. 8-Jesmtqgkqp-vuidjrv completes the activity by him/herself with no assistance from a helper. 5-Set-up or Clean-up Assistance-helper sets up or cleans up; patient completes activity. [place] assists only prior to or following the activity. 4-Supervision or Touching Assistance-helper provides verbal cues and/or touching/steadying and/or contact guard assistance as patient completes activity. Assistance may be provided throughout the activity or intermittently. 3-Partial/Moderate Assistance-helper does LESS THAN HALF the effort. [place] lifts, holds or supports trunk or limbs, but provides less than half the effort. 2-Substantial/Maximal Assistance-helper does MORE THAN HALF the effort. [place] lifts or holds trunk or limbs and provides more than half the effort. 0-Qkhjsljqa-gfdzqa does ALL the effort. Patient does none of the effort to complete the activity. Or, the assistance of 2 or more helpers is required for the patient to complete the activity. If activity was not attempted, code reason: 7-Patient Refused. 9-Not Applicable-not attempted and the patient did not perform the activity before the current illness, exacerbation or injury. 10-Not Attempted due to Environmental Limitations-(lack of equipment, weather restraints, etc.). 88-Not Attempted due to Medical Conditions or Safety Concerns. Eating (QC): 6 (per pt report) Lower Body Dressing (QC): 4 On/Off Footwear: 4 Toileting Hygiene (QC): 6 Toilet Transfer (QC): 6 Other Treatment [id number]: Pt agreeable to OT Tx, declines showering today preferring to complete tomorrow. Pt stood from recliner to FWW, then performed functional mobility to therapy gym, slow pace, independently. OT tx focused on increasing BUE strength and activity. Pt completed arm bike, x15 mins, 20-25 Watt resistance. Pt requests to use bathroom, returned to room using FWW, independently, slow pace. Pt completed toileting and hand washing independently, then transferred to recliner. Post tx, pt in recliner, call light in reach and all needs met. [id number]: Pt in recliner, requests donning thigh high pauly hose. Pt able to doff pants, SBA. OT assisted pt with donning tedhose (max A overall with tedhose). Pt then donned pants, SBA (1 VC to don RLE first), and pt able to don gripper socks with increased time. OT educated pt on benefits of plastic block boiler reliner and sock aid, if pt feels like she requires these devices at home, but also encouraged pt to complete footwear without AE when able in order to continue with ROM in R knee, she verbalized understanding. Post tx, pt in recline, call light in reach and all needs met. Education OT Patient Education: Correct positioning, Energy conservation, Modified ADL techniques, Progress toward Goal/Update tx plan, Purpose of tx/functional activities Teaching Recipient: Patient Teaching Methods: Discussion Response to Teaching: Verbalize Understanding OT Short Term Goals Short Term Goals Time Frame: Jun 11, 2022 Shower/bathe self: 4 Lower body dressin Putting on/taking off footwear: 4 OT Retirement Goals Retirement Goals Time Frame: Jun 25, 2022 Eating (QC): 6 Oral Hygiene (QC): 6 Toileting Hygiene (QC): 6 Shower/Bathe Self (QC): 5 Upper Body Dressing (QC): 6 Lower Body Dressing (QC): 6 On/Off Footwear (QC): 6 Additional Goals: 1-Demonstrate ADL Tasks, 2-Verbalize Understanding, 3- ImproveStrength/Sonu 1=Demonstrate adherence to instructed precautions during ADL tasks. 2=Patient will verbalize/demonstrate understanding of assistive devices/modifications for ADL. 3=Patient will improve strength/tolerance for activity to enable patient to perform ADL's. OT Education/Plan Problem List/Assessment Assessment: Decreased Activ Tolerance, Decreased UE Strength, Impaired I ADL's Discharge Recommendations Plan/Recommendations: Continue POC Treatment Plan/Plan of Care Patient would benefit from OT for education, treatment and training to promote independence in ADL's, mobility, safety and/or upper extremity function for ADL's. Plan of Care: ADL Retraining, Functional Mobility, Group Exercise/Act as Ind, UE Funct Exercise/Act Treatment Duration: Jun 25, 2022 Frequency: At least 5 of 7 days/Wk (IRF) Estimated Hrs Per Day: 1.5 hours per day Rehab Potential: Good Time/GCodes Start Time: 08:00 ([id number]) Stop Time: 11:00 ([id number]) Total Time Billed (hr/min): 90 Billed Treatment Time [id number]: 1, FA 2 (25'), EX (15'), ADL (20') [id number]: 1, ADL 2 RADHA DUBOIS OT Jun 08, 2022 08:28
--- NOTE | 2022-06-08 11:27 | Physical Therapy Daily Note ---
PT Daily Note-Current Subjective Pt sitting in recliner upon arrival. Pt agrees to PT but reports stiffness & discomfort in R knee & numbness/tingling in L LE. Pain Numeric Pain Scale: 5-Moderate Pain Location: Right, Incisional Location Body Site: Knee Pain Description: Ache, Tightness Mental Status Patient Orientation: Person, Place, Time, Situation Attachments: Polar Pack Transfers SCALE: Activities may be completed with or without assistive devices. 8-Tgcmoynzps-iuojlzf completes the activity by him/herself with no assistance from a helper. 5-Set-up or Clean-up Assistance-helper sets up or cleans up; patient completes activity. [place] assists only prior to or following the activity. 4-Supervision or Touching Assistance-helper provides verbal cues and/or emma castro/steadying and/or contact guard assistance as patient completes activity. Assistance may be provided throughout the activity or intermittently. 3-Partial/Moderate Assistance-helper does LESS THAN HALF the effort. [place] lifts, holds or supports trunk or limbs, but provides less than half the effort. 2-Substantial/Maximal Assistance-helper does MORE THAN HALF the effort. [place] lifts or holds trunk or limbs and provides more than half the effort. 8-Laoixlqnj-wtksev does ALL the effort. Patient does none of the effort to complete the activity. Or, the assistance of 2 or more helpers is required for the patient to complete the activity. If activity was not attempted, code reason: 7-Patient Refused. 9-Not Applicable-not attempted and the patient did not perform the activity before the current illness, exacerbation or injury. 10-Not Attempted due to Environmental Limitations-(lack of equipment, weather restraints, etc.). 88-Not Attempted due to Medical Conditions or Safety Concerns. Sit to Stand (QC): 5 Toilet Transfer (QC): 4 Weight Bearing Full Weight Bearing Full Weight Bearing Gait Training Does the Patient Walk?: Yes Distance: 150' Walk 10 feet (QC): 4 Walk 50 ft with 2 Turns(QC): 4 Walk 150 ft (QC): 4 Gait Persons Needed: 1 Gait Assistive Device: FWW Exercises Seated Therapy Exercises: Ankle pumps, Long arc quads, Hip flexion Seated Reps: 15 NuStep Minutes: 15 NuStep Workload: 2 Treatments TF to standing, declines need for BR. Amb. in hallway, taking RB as needed. Pt uses NuStep to aid in limbering B LE for increased movement. Pt completes Seated EX before amb. in hallway and returning to room. All needs met, call light in hand. Assessment Current Status: Good Progress Pt's amb. is improving with improved WB through R knee. PT Halfway Goals Polisher [employer] Goals PT Halfway Goals Time Frame: Jun 26, 2022 Roll Left & Right (QC): 6 Sit to Lying (QC): 6 Lying-Sitting on Side/Bed(QC): 6 Sit to Stand (QC): 6 Chair/Nlq-lw-Onvbt Xfer(QC): 6 Toilet Transfer (QC): 6 Car Transfer (QC): 6 Does the Patient Walk: Yes Walk 10 feet (QC): 6 Walk 50ft with 2 Turns (QC): 6 Walk 150 ft (QC): 6 Walking 10ft on Uneven Surface: 6 1 Step (curb) (QC): 4 4 Steps (QC): 4 12 Steps (QC): 4 Picking up an Object (QC): 6 Does the Pt use WC or Scooter?: No Wheel 50 feet with 2 turns (QC: 9 Type: N/A Wheel 150 feet: 9 Type: N/A PT Plan Problem List Problem List: Activity Tolerance, Functional Strength, Gait Treatment/Plan Treatment Plan: Continue Plan of Care Treatment Plan: Bed Mobility, Concurrent Therapy, Education, Functional Activity Sonu, Functional Strength, Group Therapy, Gait, Safety, Therapeutic Exercise, Transfers Treatment Duration: Jun 26, 2022 Frequency: At least 5 of 7 days/Wk (IRF) Estimated Hrs Per Day: 1.5 hours per day Patient and/or Family Agrees t: Yes Safety Risks/Education Patient Education: Gait Training, Transfer Techniques, Correct Positioning, Safety Issues Teaching Recipient: Patient Teaching Methods: Discussion Response to Teaching: Verbalize Understanding Time/GCodes Time In: 900 Time Out: 1000 Total Billed Treatment Time: 60 Total Billed Treatment 1, GT x2 (30m) & EX x2 (30m) MAITE KIMBALL PTA Jun 08, 2022 11:26
--- NOTE | 2022-06-08 15:39 | Physical Therapy Daily Note ---
PT Daily Note-Current Subjective Pt sitting in recliner with B LE elevated. Sp present visiting with pt. Pt agrees to PT. Pain Numeric Pain Scale: 3 Location: Right, Incisional Location Body Site: Knee Pain Description: Ache Mental Status Patient Orientation: Person, Place, Time, Situation Attachments: [place] Transfers SCALE: Activities may be completed with or without assistive devices. 1-Majhaqwjyw-xaodmpf completes the activity by him/herself with no assistance from a helper. 5-Set-up or Clean-up Assistance-helper sets up or cleans up; patient completes activity. [place] assists only prior to or following the activity. 4-Supervision or Touching Assistance-helper provides verbal cues and/or touching/steadying and/or contact guard assistance as patient completes activity. Assistance may be provided throughout the activity or intermittently. 3-Partial/Moderate Assistance-helper does LESS THAN HALF the effort. [place] lifts, holds or supports trunk or limbs, but provides less than half the effort. 2-Substantial/Maximal Assistance-helper does MORE THAN HALF the effort. [place] lifts or holds trunk or limbs and provides more than half the effort. 4-Sgpnidwxz-akseuh does ALL the effort. Patient does none of the effort to complete the activity. Or, the assistance of 2 or more helpers is required for the patient to complete the activity. If activity was not attempted, code reason: 7-Patient Refused. 9-Not Applicable-not attempted and the patient did not perform the activity before the current illness, exacerbation or injury. 10-Not Attempted due to Environmental Limitations-(lack of equipment, weather restraints, etc.). 88-Not Attempted due to Medical Conditions or Safety Concerns. Sit to Stand (QC): 5 Toilet Transfer (QC): 4 Weight Bearing Full Weight Bearing Full Weight Bearing Gait Training Does the Patient Walk?: Yes Distance: 200' Walk 10 feet (QC): 5 Walk 50 ft with 2 Turns(QC): 5 Walk 150 ft (QC): 5 Gait Assistive Device: FWW Pt WB through UE to take pressure off LE. WIND COMMISSIONING TECHNICIAN encourages normalizing gait by standing up tall and putting increased WB through LE. Treatments Pt amb. in hallway, taking RB as needed. Pt returns to room at end of tx to use BR. All needs met, call light in hand. Assessment Current Status: Good Progress Pt decreased flexion in R knee with walking, normalizing gait better. PT Fci Goals Fci Goals PT Operations Manager Station Goals Time Frame: Jun 26, 2022 Roll Left & Right (QC): 6 Sit to Lying (QC): 6 Lying-Sitting on Side/Bed(QC): 6 Sit to Stand (QC): 6 Chair/Wnf-em-Cktwf Xfer(QC): 6 Toilet Transfer (QC): 6 Car Transfer (QC): 6 Does the Patient Walk: Yes Walk 10 feet (QC): 6 Walk 50ft with 2 Turns (QC): 6 Walk 150 ft (QC): 6 Walking 10ft on Uneven Surface: 6 1 Step (curb) (QC): 4 4 Steps (QC): 4 12 Steps (QC): 4 Picking up an Object (QC): 6 Does the Pt use WC or Scooter?: No Wheel 50 feet with 2 turns (QC: 9 Type: N/A Wheel 150 feet: 9 Type: N/A PT Plan Problem List Problem List: Activity Tolerance, Functional Strength Treatment/Plan Treatment Plan: Continue Plan of Care Treatment Plan: Bed Mobility, Concurrent Therapy, Education, Functional Activity Sonu, Functional Strength, Group Therapy, Gait, Safety, Therapeutic Exercise, Transfers Treatment Duration: Jun 26, 2022 Frequency: At least 5 of 7 days/Wk (IRF) Estimated Hrs Per Day: 1.5 hours per day Patient and/or Family Agrees t: Yes Safety Risks/Education Patient Education: Gait Training, Transfer Techniques, Correct Positioning, Safety Issues Teaching Recipient: Patient, Significant Other Teaching Methods: Discussion Response to Teaching: Verbalize Understanding Time/GCodes Time In: 1330 Time Out: 1400 Total Billed Treatment Time: 30 Total Billed Treatment 1, GT x2 (30m) MAITE KIMBALL WIND COMMISSIONING TECHNICIAN Jun 08, 2022 15:39
[2022-06-08 20:04] VITALS: BP 121/74
[2022-06-08] MEDS: DOCUSATE SODIUM 100 MG (COLACE) CAP PO SCH (20:37)
[2022-06-09] MEDS: MULTIVIT W/MINERALS TAB (THERAGRAN M) PO SCH (06:33)
--- NOTE | 2022-06-09 06:42 | PM&R Progress Note ---
Subjective HPI/CC On Admission Date Seen by Provider: Jun 09, 2022 Time Seen by Provider: 08:45 Subjective/Events-last exam 06/09/2022: Pt is doing really well Discharge is planned for tomorrow Bowels moved yesterday Pain is controlled 06/08/2022: No major issues BM treatment will increase Pain controlled 06/07/2022: Doing well BM+ Pain controlled Reviewed meds and labs 06/06/2022: Patient doing really well Family visiting today Pain control but still using pain pill and every 4 hours Bowels moving well 06/05/2022: Doing much better Pain controlled BM+ after supp given last night at 1000 No falls 06/04/2022: Pt is doing well No bowels moving yet Suppository will be offered too Otherwise doing well having no new concerns Review of Systems General: Fatigue, Malaise Objective Exam Vital Signs Vital Signs Date Time Temp Pulse Resp B/P (MAP) Pulse Ox O2 Delivery O2 Flow Rate FiO2 06/09/22 19:52 36.9 71 18 121/76 (91) 99 Room Air Capillary Refill : General Appearance: No Apparent Distress, WD/WN HEENT: PERRL/EOMI, Moist Mucous Membranes Neck: Normal Inspection, Supple Respiratory: Lungs Clear, Normal Breath Sounds, No Accessory Muscle Use, No Respiratory Distress Cardiovascular: Regular Rate, Rhythm, No Gallop, No Murmur Gastrointestinal: Non Tender, Soft Rectal: Deferred Back: Normal Inspection Extremity: Swelling, Other Neurologic/Psychiatric: Alert, Oriented x3 Skin: Normal Color, Warm/Dry Lymphatic: No Adenopathy Results/Procedures Lab Patient resulted labs reviewed. FIM Transfers Therapy Code Descriptions/Definitions Functional [place] Measure: 0=Not Assessed/NA 4=Minimal Assistance 1=Total Assistance 5=Supervision or Setup 2=Maximal Assistance 6=Modified [place] 3=Moderate Assistance 7=Complete IndependenceSCALE: Activities may be completed with or without assistive devices. 2-Jbvwqtliwy-wfmeoxw completes the activity by him/herself with no assistance from a helper. 5-Set-up or Clean-up Assistance-helper sets up or cleans up; patient completes activity. [place] assists only prior to or following the activity. 4-Supervision or Touching Assistance-helper provides verbal cues and/or touching/steadying and/or contact guard assistance as patient completes acti vity. Assistance may be provided throughout the activity or intermittently. 3-Partial/Moderate Assistance-helper does LESS THAN HALF the effort. [place] lifts, holds or supports trunk or limbs, but provides less than half the effort. 2-Substantial/Maximal Assistance-helper does MORE THAN HALF the effort. [place] lifts or holds trunk or limbs and provides more than half the effort. 5-Fighrcznb-oobufq does ALL the effort. Patient does none of the effort to complete the activity. Or, the assistance of 2 or more helpers is required for the patient to complete the activity. If activity was not attempted, code reason: 7-Patient Refused. 9-Not Applicable-not attempted and the patient did not perform the activity before the current illness, exacerbation or injury. 10-Not Attempted due to Environmental Limitations-(lack of equipment, weather restraints, etc.). 88-Not Attempted due to Medical Conditions or Safety Concerns. Roll Left to Right (QC): 6 Sit to Lying (QC): 4 Sit to Stand (QC): 5 Chair/Akq-ms-Fmezd Xfer(QC): 6 Car Transfer (QC): 4 Gait Training Does the Patient Walk?: Yes Distance: 200' Walk 10 feet (QC): 5 Walk 50 ft with 2 Turns(QC): 5 Walk 150 ft (QC): 5 Walking 10ft/uneven surface-QC: 4 Gait Persons Needed: 1 Gait Assistive Device: FWW Wheelchair Training Wheel 50 ft with 2 turns (QC): 9 Wheel 150 ft (QC): 9 Type of Wheelchair: N/A Stair Training Stair Training: Handrails/: 2 handrails #of Steps: 4 1 Step (curb) (QC): 4 4 Steps (QC): 4 12 Steps (QC): 88 Stairs: Pattern: Step to Balance Picking up an Object (QC): 88 ADL-Treatment Eating (QC): 6 (per pt report) Oral Hygiene (QC): 4 (Per pt report, standing at sink.) Shower/Bathe Self (QC): 3 (Mod A requiredm for sit to stand at GBS in order to wash buttocks. min A to wash feet for thoroughness.) Upper Body Dressing (QC): 5 (set up) Lower Body Dressing (QC): 4 On/Off Footwear (QC): 4 Toileting Hygiene (QC): 6 Toilet Transfer (QC): 6 Assessment/Plan Assessment and Plan Assess & Plan/Chief Complaint Assessment: Status post right total knee arthroplasty by Dr. Hernandez uncomplicated with slow recovery on 06/01/2022 History of breast cancer Postop constipation Hyperlipidemia Hypertension GERD Plan: PT and OT Walker Home meds Pain meds 06/04/2022: Pain control Bowel regimen 06/05/2022: Maintain BM regimen Fall risk 06/06/2022: Supportive care Monitor closely 06/07/2022: Improved status 06/08/2022: Continue pain management BM treatment to increase 06/09/2022: Monitor pain DC tomorrow (1) History of total knee arthroplasty YNES BULL DO Jun 09, 2022 06:42
[2022-06-09 07:32] VITALS: BP 144/65
[2022-06-09] MEDS: VITAMIN D3 25 MCG (1,000 UNITS) TABLET PO SCH ×2 (07:58→21:08)
[2022-06-09] MEDS: PANTOPRAZOLE 40 MG (PROTONIX) TAB PO SCH (07:59)
[2022-06-09] MEDS: ASPIRIN E.C. 81 MG (ECOTRIN) TAB PO SCH ×2 (07:59→21:08)
[2022-06-09] MEDS: SENNA W/DOCUSATE (SENOKOT S) TABLET PO SCH ×2 (07:59→19:34)
[2022-06-09] MEDS: meTOproloL SUCCINATE 50 MG (TOPROL XL) TAB PO SCH (07:59)
[2022-06-09] MEDS: CALCIUM CARBONATE 600 MG (CALCARB) TAB PO SCH ×2 (07:59→17:21)
[2022-06-09] MEDS: ANASTROZOLE 1 MG TAB (ARIMIDEX) PO SCH (07:59)
[2022-06-09] MEDS: polyethylene glycoL POWDER 17 GM (MIRALAX) PACK PO SCH ×2 (08:07→19:34)
[2022-06-09] MEDS: AtorvaSTATin TABLET 10 MG TABLET PO SCH (08:59)
--- NOTE | 2022-06-09 10:07 | Occupational Ther Daily Note ---
OT Current Status-Daily Note Subjective Pt in bathroom, agreeable to OT Tx. ADL-Treatment Therapy Code Descriptions/Definitions Functional Kerrick Measure: 0=Not Assessed/NA 4=Minimal Assistance 1=Total Assistance 5=Supervision or Setup 2=Maximal Assistance 6=Modified Kerrick 3=Moderate Assistance 7=Complete IndependenceSCALE: Activities may be completed with or without assistive devices. 8-Itmeucdjtm-crkmsfu completes the activity by him/herself with no assistance from a helper. 5-Set-up or Clean-up Assistance-helper sets up or cleans up; patient completes activity. [place] assists only prior to or following the activity. 4-Supervision or Touching Assistance-helper provides verbal cues and/or touching/steadying and/or contact guard assistance as patient completes activity. Assistance may be provided throughout the activity or intermittently. 3-Partial/Moderate Assistance-helper does LESS THAN HALF the effort. [place] lifts, holds or supports trunk or limbs, but provides less than half the effort. 2-Substantial/Maximal Assistance-helper does MORE THAN HALF the effort. [place] lifts or holds trunk or limbs and provides more than half the effort. 8-Tzsdmtqku-qqibvo does ALL the effort. Patient does none of the effort to compl ete the activity. Or, the assistance of 2 or more helpers is required for the patient to complete the activity. If activity was not attempted, code reason: 7-Patient Refused. 9-Not Applicable-not attempted and the patient did not perform the activity before the current illness, exacerbation or injury. 10-Not Attempted due to Environmental Limitations-(lack of equipment, weather restraints, etc.). 88-Not Attempted due to Medical Conditions or Safety Concerns. Eating (QC): 6 Oral Hygiene (QC): 6 Shower/Bathe Self (QC): 5 Upper Body Dressing (QC): 6 Lower Body Dressing (QC): 6 On/Off Footwear: 6 Toileting Hygiene (QC): 6 Toilet Transfer (QC): 6 Other Treatment Pt in bathroom upon OT arrival, completed ADLs in room as outlined above. Pt took rest breaks as needed, then used FWW to perform functional mobility to [employer] gym. In order to increase BUE strength and activity tolerance, pt completed arm bike x10 mins, 25 watt resistance. Pt used FWW to return to room, transferring to recliner. Post tx, pt in recliner, call light in reach and all needs met. Education OT Patient Education: Correct positioning, Energy conservation, Exercise program, Modified ADL techniques, Progress toward Goal/Update tx plan, Purpose of tx/functional activities, Rehab process Teaching Recipient: Patient Teaching Methods: Discussion Response to Teaching: Verbalize Understanding OT Short Term Goals Short Term Goals Time Frame: Jun 11, 2022 Shower/bathe self: 4 Lower body dressin Putting on/taking off footwear: 4 OT Halfway Goals Elect Equip Maint Eng Goals Time Frame: Jun 25, 2022 Eating (QC): 6 (met) Oral Hygiene (QC): 6 (met) Toileting Hygiene (QC): 6 (met) Shower/Bathe Self (QC): 5 (met) Upper Body Dressing (QC): 6 (met) Lower Body Dressing (QC): 6 (met) On/Off Footwear (QC): 6 (met) Additional Goals: 1-Demonstrate ADL Tasks, 2-Verbalize Understanding, 3- ImproveStrength/Sonu 1=Demonstrate adherence to instructed precautions during ADL tasks. 2=Patient will verbalize/demonstrate understanding of assistive devices/modifications for ADL. 3=Patient will improve strength/tolerance for activity to enable patient to perform ADL's. OT Education/Plan Problem List/Assessment Assessment: Decreased Activ Tolerance, Decreased UE Strength, Impaired I ADL's Discharge Recommendations Plan/Recommendations: Continue POC Treatment Plan/Plan of Care Patient would benefit from OT for education, treatment and training to promote independence in ADL's, mobility, safety and/or upper extremity function for ADL's. Plan of Care: ADL Retraining, Functional Mobility, Group Exercise/Act as Ind, UE Funct Exercise/Act Treatment Duration: Jun 25, 2022 Frequency: At least 5 of 7 days/Wk (IRF) Estimated Hrs Per Day: 1.5 hours per day Rehab Potential: Good Time/GCodes Start Time: 09:00 Stop Time: 10:30 Total Time Billed (hr/min): 90 Billed Treatment Time 1, ADL 5 (75'), FA (15') RADHA DUBOIS OT Jun 09, 2022 10:07
--- NOTE | 2022-06-09 12:10 | Physical Therapy Daily Note ---
PT Daily Note-Current Subjective Pt sitting in recliner upon arrival. Pt agrees to PT. Pain Numeric Pain Scale: 5-Moderate Pain Location: Right, Incisional Location Body Site: Knee Pain Description: Ache, Tightness Mental Status Patient Orientation: Person, Place, Time, Situation Transfers SCALE: Activities may be completed with or without assistive devices. 9-Vguxlyxitd-qlnymfr completes the activity by him/herself with no assistance from a helper. 5-Set-up or Clean-up Assistance-helper sets up or cleans up; patient completes activity. [place] assists only prior to or following the activity. 4-Supervision or Touching Assistance-helper provides verbal cues and/or touching/steadying and/or contact guard assistance as patient completes activity. Assistance may be provided throughout the activity or intermittently. 3-Partial/Moderate Assistance-helper does LESS THAN HALF the effort. [place] lifts, holds or supports trunk or limbs, but provides less than half the effort. 2-Substantial/Maximal Assistance-helper does MORE THAN HALF the effort. [place] lifts or holds trunk or limbs and provides more than half the effort. 3-Rludobhuq-wlghsr does ALL the effort. Patient does none of the effort to complete the activity. Or, the assistance of 2 or more helpers is required for the patient to complete the activity. If activity was not attempted, code reason: 7-Patient Refused. 9-Not Applicable-not attempted and the patient did not perform the activity before the current illness, exacerbation or injury. 10-Not Attempted due to Environmental Limitations-(lack of equipment, weather restraints, etc.). 88-Not Attempted due to Medical Conditions or Safety Concerns. Roll Left & Right (QC): 5 Sit to Lying (QC): 5 Lying to Sitting/Side of Bed(Q: 5 Sit to Stand (QC): 5 Chair/Ete-if-Wpumn Xfer(QC): 5 Toilet Transfer (QC): 5 Car Transfer (QC): 3 Sp helps lift R LE into car as car makes pt bend knee more than pt is capable on own. Weight Bearing Full Weight Bearing Full Weight Bearing Gait Training Does the Patient Walk?: Yes Distance: 150' Walk 10 feet (QC): 5 Walk 50 ft with 2 Turns(QC): 5 Walk 150 ft (QC): 5 Walking 10ft/uneven surface-QC: 5 Gait Assistive Device: FWW Wheelchair Training Does the Pt Use a Wheelchair?: No Stair Training Stair Training: Handrails/: 2 handrails #of Steps: 4 1 Step (curb) (QC): 5 4 Steps (QC): 5 12 Steps (QC): 7 Stairs: Pattern: Step to Balance Picking up an Object (QC): 5 Treatments Pt completes QC scoring items listed above. Pt amb. in hallway and returns to room to rest in recliner and eat lunch. All needs met, call light in hand. Assessment Current Status: Good Progress Pt is normalizing gait and increasing WB through LE. pt needs VC to look up instead of at floor to promote standing up tall. Pt has difficulty flexing knee enough to get into car by self. PT Longterm Goals Longterm Goals PT Longterm Goals Time Frame: Jun 26, 2022 Roll Left & Right (QC): 6 Sit to Lying (QC): 6 Lying-Sitting on Side/Bed(QC): 6 Sit to Stand (QC): 6 Chair/Bhr-ou-Enuzw Xfer(QC): 6 Toilet Transfer (QC): 6 Car Transfer (QC): 6 Does the Patient Walk: Yes Walk 10 feet (QC): 6 Walk 50ft with 2 Turns (QC): 6 Walk 150 ft (QC): 6 Walking 10ft on Uneven Surface: 6 1 Step (curb) (QC): 4 4 Steps (QC): 4 12 Steps (QC): 4 Picking up an Object (QC): 6 Does the Pt use WC or Scooter?: No Wheel 50 feet with 2 turns (QC: 9 Type: N/A Wheel 150 feet: 9 Type: N/A PT Plan Problem List Problem List: Activity Tolerance Treatment/Plan Treatment Plan: Continue Plan of Care Treatment Plan: Bed Mobility, Concurrent Therapy, Education, Functional Activity Sonu, Functional Strength, Group Therapy, Gait, Safety, Therapeutic Exercise, Transfers Treatment Duration: Jun 26, 2022 Frequency: At least 5 of 7 days/Wk (IRF) Estimated Hrs Per Day: 1.5 hours per day Patient and/or Family Agrees t: Yes Safety Risks/Education Patient Education: Steps, Correct Positioning Teaching Recipient: Patient Teaching Methods: Discussion Response to Teaching: Verbalize Understanding Time/GCodes Time In: 1100 Time Out: 1200 Total Billed Treatment Time: 60 Total Billed Treatment 1, GT (15m) & FA x3 (45m) MAITE KIMBALL CHARGEMASTER ANALYST Jun 09, 2022 12:10
[2022-06-09] MEDS ORDERED: DICL75TA2 PO (13:19)
--- NOTE | 2022-06-09 14:25 | Physical Therapy Daily Note ---
PT Daily Note-Current Subjective Pt sitting in recliner visiting w/Sp. COMPUTER GAME PROGRAMMER answers call light and pt asks to use BR. Mental Status Patient Orientation: Person, Place, Time, Situation Transfers SCALE: Activities may be completed with or without assistive devices. 9-Covznxkzjd-qnlgoms completes the activity by him/herself with no assistance from a helper. 5-Set-up or Clean-up Assistance-helper sets up or cleans up; patient completes activity. [place] assists only prior to or following the activity. 4-Supervision or Touching Assistance-helper provides verbal cues and/or touching/steadying and/or contact guard assistance as patient completes activity. Assistance may be provided throughout the activity or intermittently. 3-Partial/Moderate Assistance-helper does LESS THAN HALF the effort. [place] lifts, holds or supports trunk or limbs, but provides less than half the effort. 2-Substantial/Maximal Assistance-helper does MORE THAN HALF the effort. [place] lifts or holds trunk or limbs and provides more than half the effort. 6-Zgtauwvpg-kxsxid does ALL the effort. Patient does none of the effort to complete the activity. Or, the assistance of 2 or more helpers is required for the patient to complete the activity. If activity was not attempted, code reason: 7-Patient Refused. 9-Not Applicable-not attempted and the patient did not perform the activity before the current illness, exacerbation or injury. 10-Not Attempted due to Environmental Limitations-(lack of equipment, weather restraints, etc.). 88-Not Attempted due to Medical Conditions or Safety Concerns. Sit to Stand (QC): 5 Toilet Transfer (QC): 5 Weight Bearing Full Weight Bearing Full Weight Bearing Gait Training Does the Patient Walk?: Yes Gait Assistive Device: FWW Treatments TF to standing and amb. to BR. After finishing, pt is able to complete pericare, stand and wash hands. Pt returns to recliner. Pt, Sp & COMPUTER GAME PROGRAMMER discuss a few questions that Pt & Sp have including how soon can pt drive, how long will therapy be needed, what EX are important, etc. Written HEP for Supine & Seated Ex is issued and reviewed. Pt resting at end of tx with all needs met, call light in hand. Assessment Current Status: Good Progress Pt landon. tx well and has improved with mobility and transfers. PT Custodial Goals Custodial Goals PT Custodial Goals Time Frame: Jun 26, 2022 Roll Left & Right (QC): 6 Sit to Lying (QC): 6 Lying-Sitting on Side/Bed(QC): 6 Sit to Stand (QC): 6 Chair/Ioj-mu-Ksryt Xfer(QC): 6 Toilet Transfer (QC): 6 Car Transfer (QC): 6 Does the Patient Walk: Yes Walk 10 feet (QC): 6 Walk 50ft with 2 Turns (QC): 6 Walk 150 ft (QC): 6 Walking 10ft on Uneven Surface: 6 1 Step (curb) (QC): 4 4 Steps (QC): 4 12 Steps (QC): 4 Picking up an Object (QC): 6 Does the Pt use WC or Scooter?: No Wheel 50 feet with 2 turns (QC: 9 Type: N/A Wheel 150 feet: 9 Type: N/A PT Plan Problem List Problem List: Activity Tolerance Treatment/Plan Treatment Plan: Continue Plan of Care Treatment Plan: Bed Mobility, Concurrent Therapy, Education, Functional Activity Sonu, Functional Strength, Group Therapy, Gait, Safety, Therapeutic Exercise, Transfers Treatment Duration: Jun 26, 2022 Frequency: At least 5 of 7 days/Wk (IRF) Estimated Hrs Per Day: 1.5 hours per day Patient and/or Family Agrees t: Yes Safety Risks/Education Patient Education: Issued Written HEP, Correct Positioning Teaching Recipient: Patient, Significant Other Teaching Methods: Discussion Response to Teaching: Verbalize Understanding Time/GCodes Time In: 1300 Time Out: 1330 Total Billed Treatment Time: 30 Total Billed Treatment 1, FA (15m) & GT (15m) MAITE KIMBALL COMPUTER GAME PROGRAMMER Jun 09, 2022 14:25
[2022-06-09 19:52] VITALS: BP 121/76
[2022-06-09] MEDS: DOCUSATE SODIUM 100 MG (COLACE) CAP PO SCH (21:19)
[2022-06-10] MEDS ORDERED: SENN1TAB76 PO (05:27)
[2022-06-10] MEDS ORDERED: TRM50T PO (05:27)
[2022-06-10] MEDS ORDERED: ASPI-1238 PO (05:27)
[2022-06-10] MEDS ORDERED: OXC5T PO (05:27)
[2022-06-10] MEDS ORDERED: PANT40TA52 PO (05:27)
--- NOTE | 2022-06-10 05:28 | D/C HH Face to Face Order ---
D/C Face to Face Orders Reconcile Patient Problems Problems Reviewed?: Yes Instructions for Patient Via [facility], Patient Instructions/FollowUp: Dr Angelo as scheduled Physician to follow Patient: Petey Discharge Diet for Home: No Restrictions Patient Problems: knee replacement Patient Data-Allergies,Ht & Wt Patient Allergies: Coded Allergies: NKANo Known Allergies (Verified Allergy, Unknown, 09/19/06) Home Health Need/Face to Face Date of Face to Face: Jun 10, 2022 Clinical Findings: Generalized weakness and fatigue, Instability, Muscle weakness, Pain with ambulation I have seen Pt apet-ko-tohc: Yes Discharged To: Home Diagnosis/Conditions: knee replacement Patient is Homebound due to: Muscle weakness, Pain w/ambulation Homebound Status Due to the above stated illness, injury or surgical procedure (medical condition or diagnosis) and associated clinical findings, the patient is homebound because of his/her inability to leave home except with aid of a supportive device and/or person AND leaving the home requires a considerable and taxing effort or is medically contraindicated. Pt req the following assistanc: Walker [facility] Nursing Orders Home Health Services Order: Nursing Services, Yarn Tester-Evaluate & Treat, Physical Therapy-Evaluate & Treat Certify Stmt I certify that this patient is under my care and that I, a nurse practitioner or a physician; a medical laboratory assistant working with me, had a face to face encounter that - meets the physician face to face encounter requirements with this patient as dated. YNES BULL DO Jun 10, 2022 05:28
--- NOTE | 2022-06-10 05:29 | Discharge Summary ---
Diagnosis/Chief Complaint Date of Admission Jun 03, 2022 at 12:35 Date of Discharge Discharge Date: Jun 10, 2022 Discharge Diagnosis Assessment: Status post right total knee arthroplasty by Dr. Hernandez uncomplicated with slow recovery on 06/01/2022 History of breast cancer Postop constipation Hyperlipidemia Hypertension GERD Plan: PT and OT Walker Home meds Pain meds 06/04/2022: Pain control Bowel regimen 06/05/2022: Maintain BM regimen Fall risk 06/06/2022: Supportive care Monitor closely 06/07/2022: Improved status 06/08/2022: Continue pain management BM treatment to increase 06/09/2022: Monitor pain DC tomorrow (1) History of total knee arthroplasty Reason Hospital Visit Discharge Summary Discharge Physical Examination Allergies: Coded Allergies: NKANo Known Allergies (Verified Allergy, Unknown, 09/19/06) Vitals & I&Os Vital Signs Date Time Temp Pulse Resp B/P (MAP) Pulse Ox O2 Delivery O2 Flow Rate FiO2 06/10/22 10:20 37.1 81 18 139/79 95 Room Air General Appearance: Alert, Oriented X3, Cooperative Respiratory: Clear to Auscultation Cardiovascular: Regular Rate Psych/Mental Status: Mental Status NL Hospital Course Was the Problem List Reviewed?: Yes Standard course after she arrived from knee replacement with slow recovery. Pain was controlled on Oxycodone. Post op constipation resolved after multiple meds given. Labs remained stable. Overall she was found to have no decompensation during hospital course. Participation with therapy was good and consistent. No issues occurred during course and patient was deemed stable for DC. Labs (last 24 hrs) Laboratory Tests 06/04/22 06:22: White Blood Count 6.3, Red Blood Count 3.45L, Hemoglobin 10.8L, Hematocrit 32L, Mean Corpuscular Volume 93, Mean Corpuscular Hemoglobin 31, Mean Corpuscular Hemoglobin Concent 34, Red Cell Distribution Width 12.5, Platelet Count 163, Mean Platelet Volume 11.3, Immature Granulocyte % (Auto) 1, Neutrophils (%) (Auto) 76H, Lymphocytes (%) (Auto) 14, Monocytes (%) (Auto) 8, Eosinophils (%) (Auto) 2, Basophils (%) (Auto) 0, Neutrophils # (Auto) 4.8, Lymphocytes # (Auto) 0.9L, Monocytes # (Auto) 0.5, Eosinophils # (Auto) 0.1, Basophils # (Auto) 0.0, Immature Granulocyte # (Auto) 0.0, Sodium Level 137, Potassium Level 3.8, Chloride Level 105, Carbon Dioxide Level 20L, Anion Gap 12, Blood Urea Nitrogen 16, Creatinine 0.70, Estimat Glomerular Filtration Rate 92, BUN/Creatinine Ratio 23, Glucose Level 108H, Calcium Level 9.7, Corrected Calcium 10.3H, Total Bilirubin 1.0, Aspartate Amino Transf (AST/SGOT) 31, Alanine Aminotransferase (ALT/SGPT) 15, Alkaline Phosphatase 74, Total Protein 6.5, Albumin 3.3 06/07/22 06:00: White Blood Count 5.9, Red Blood Count 3.35L, Hemoglobin 10.5L, Hematocrit 32L, Mean Corpuscular Volume 94, Mean Corpuscular Hemoglobin 31, Mean Corpuscular Hemoglobin Concent 33, Red Cell Distribution Width 12.4, Platelet Count 254, Mean Platelet Volume 10.9, Immature Granulocyte % (Auto) 1, Neutrophils (%) (Auto) 66, Lymphocytes (%) (Auto) 21, Monocytes (%) (Auto) 9, Eosinophils (%) (Auto) 2, Basophils (%) (Auto) 1, Neutrophils # (Auto) 3.9, Lymphocytes # (Auto) 1.3, Monocytes # (Auto) 0.6, Eosinophils # (Auto) 0.1, Basophils # (Auto) 0.1, Immature Granulocyte # (Auto) 0.0, Sodium Level 141, Potassium Level 4.0, Chloride Level 104, Carbon Dioxide Level 26, Anion Gap 11, Blood Urea Nitrogen 26H, Creatinine 0.85, Estimat Glomerular Filtration Rate 73, BUN/Creatinine Ratio 31, Glucose Level 115H, Calcium Level 9.6, Corrected Calcium 10.0, Total Bilirubin 1.0, Aspartate Amino Transf (AST/SGOT) 18, Alanine Aminotransferase (ALT/SGPT) 9, Alkaline Phosphatase 73, Total Protein 6.5, Albumin 3.5 Pending Labs Laboratory Tests 06/04/22 06:22: White Blood Count 6.3, Red Blood Count 3.45, Hemoglobin 10.8, Hematocrit 32, Mean Corpuscular Volume 93, Mean Corpuscular Hemoglobin 31, Mean Corpuscular Hemoglobin Concent 34, Red Cell Distribution Width 12.5, Platelet Count 163, Mean Platelet Volume 11.3, Immature Granulocyte % (Auto) 1, Neutrophils (%) (Auto) 76, Lymphocytes (%) (Auto) 14, Monocytes (%) (Auto) 8, Eosinophils (%) (Auto) 2, Basophils (%) (Auto) 0, Neutrophils # (Auto) 4.8, Lymphocytes # (Auto) 0.9, Monocytes # (Auto) 0.5, Eosinophils # (Auto) 0.1, Basophils # (Auto) 0.0, Immature Granulocyte # (Auto) 0.0, Sodium Level 137, Potassium Level 3.8, Chloride Level 105, Carbon Dioxide Level 20, Anion Gap 12, Blood Urea Nitrogen 16, Creatinine 0.70, Estimat Glomerular Filtration Rate 92, BUN/Creatinine Ratio 23, Glucose Level 108, Calcium Level 9.7, Corrected Calcium 10.3, Total Bilirub in 1.0, Aspartate Amino Transf (AST/SGOT) 31, Alanine Aminotransferase (ALT/SGPT) 15, Alkaline Phosphatase 74, Total Protein 6.5, Albumin 3.3 06/07/22 06:00: White Blood Count 5.9, Red Blood Count 3.35, Hemoglobin 10.5, Hematocrit 32, M edel Corpuscular Volume 94, Mean Corpuscular Hemoglobin 31, Mean Corpuscular Hemoglobin Concent 33, Red Cell Distribution Width 12.4, Platelet Count 254, Mean Platelet Volume 10.9, Immature Granulocyte % (Auto) 1, Neutrophils (%) (Auto) 66, Lymphocytes (%) (Auto) 21, Monocytes (%) (Auto) 9, Eosinophils (%) (Auto) 2, Basophils (%) (Auto) 1, Neutrophils # (Auto) 3.9, Lymphocytes # (Auto) 1.3, Monocytes # (Auto) 0.6, Eosinophils # (Auto) 0.1, Basophils # (Auto) 0.1, Immature Granulocyte # (Auto) 0.0, Sodium Level 141, Potassium Level 4.0, Chloride Level 104, Carbon Dioxide Level 26, Anion Gap 11, Blood Urea Nitrogen 26, Creatinine 0.85, Estimat Glomerular Filtration Rate 73, BUN/Creatinine Ratio 31, Glucose Level 115, Calcium Level 9.6, Corrected Calcium 10.0, Total Bilirubin 1.0, Aspartate Amino Transf (AST/SGOT) 18, Alanine Aminotransferase (ALT/SGPT) 9, Alkaline Phosphatase 73, Total Protein 6.5, Albumin 3.5 Discharge Home Medications: Active Scripts Active Pantoprazole Sodium 40 Mg Tablet.dr 40 Mg PO 0800 Stool Softener-Laxative Tablet (Sennosides/Docusate Sodium) 8.6 Mg-50 Mg Tablet 1 Ea PO BID Oxyir Tablet (Oxycodone HCl) 5 Mg Tab 5-10 Mg PO Q4HR PRN Aspirin EC (Aspirin) 81 Mg Tablet.dr 81 Mg PO BID Tramadol HCl 50 Mg Tablet 50-100 Mg PO Q6H PRN Reported Docusate Sodium 100 Mg Capsule 100 Mg PO HS Metoprolol Succinate 50 Mg Tab.er.24h 50 Mg PO DAILY Flintstones with Iron Tab Chew (Pediatric Multivit No.203/Iron) 18 Mg Iron Tab.chew 18 Mg PO HS Arimidex (Anastrozole) 1 Mg Tablet 1 Mg PO DAILY Calcium Carbonate 600 Mg Calcium (1500 Mg) Tablet 600 Mg PO BID Vitamin D3 (Cholecalciferol (Vitamin D3)) 25 Mcg (1000 Unit) Capsule 25 Mcg PO BID Atorvastatin Calcium 10 Mg Tablet 10 Mg PO DAILY Tylenol Extra Strength (Acetaminophen) 500 Mg Tablet 1,000 Mg PO Q8H PRN Instructions to patient/family Please see electronic discharge instructions given to patient. Diagnosis/Problems Diagnosis/Problems (1) History of total knee arthroplasty YNES BULL DO Jun 10, 2022 05:29
[2022-06-10] MEDS: MULTIVIT W/MINERALS TAB (THERAGRAN M) PO SCH (06:27)
[2022-06-10 07:27] VITALS: BP 139/79
[2022-06-10] MEDS: VITAMIN D3 25 MCG (1,000 UNITS) TABLET PO SCH (07:56)
[2022-06-10] MEDS: ASPIRIN E.C. 81 MG (ECOTRIN) TAB PO SCH (07:56)
[2022-06-10] MEDS: meTOproloL SUCCINATE 50 MG (TOPROL XL) TAB PO SCH (07:56)
[2022-06-10] MEDS: PANTOPRAZOLE 40 MG (PROTONIX) TAB PO SCH (07:56)
[2022-06-10] MEDS: AtorvaSTATin TABLET 10 MG TABLET PO SCH (07:56)
[2022-06-10] MEDS: ANASTROZOLE 1 MG TAB (ARIMIDEX) PO SCH (07:56)
[2022-06-10] MEDS: CALCIUM CARBONATE 600 MG (CALCARB) TAB PO SCH (07:56)
[2022-06-10] MEDS: SENNA W/DOCUSATE (SENOKOT S) TABLET PO SCH (08:47)
[2022-06-10] MEDS: polyethylene glycoL POWDER 17 GM (MIRALAX) PACK PO SCH (08:47)
--- NOTE | 2022-06-10 10:18 | Therapy Team Discharge Summary ---
Therapy Discharge Summary Discharge Recommendations Date of Discharge Physical Therapy Roll Left to Right (QC): 5 Sit to Lying (QC): 5 Lying to Sitting/Side of Bed(Q: 5 Sit to Stand (QC): 5 Chair/Bkt-ci-Ofjrj Xfer(QC): 5 Toilet Transfer (QC): 5 Car Transfer (QC): 3 Does the Patient Walk: Yes Mode of Locomotion: Walk Anticipated Mode of Locomotion: Walk Walk 10 feet (QC): 5 Walk 50 ft with 2 Turns(QC): 5 Walk 150 ft (QC): 5 Walking 10ft on uneven surface: 5 Distance: 200' Gait Assistive Device: FWW Does the Pt Use a Wheelchair: No Wheel 50 ft with 2 turns (QC): 9 Wheel 150 ft (QC): 9 Type of Wheelchair: N/A #of Steps: 4 1 Step (curb) (QC): 5 4 Steps (QC): 5 12 Steps (QC): 7 Balance Sitting Static: Normal Balance Sitting Dynamic: Normal Balance-Standing Static: Good Picking up an Object (QC): 5 Occupational Therapy Pt admitted to ARU s/p R TKA. At [facility], pt was independent with ADLs and functional mobility with AD. Upon initial evaluation, pt was independent with eating, required SBA with oral care, min A with showering, LBD, and toileting, max A with footwear and set up UE dressing. OT tx focused on increasing BUE strength and activity tolerance, and increasing safety and independence with ADLs. Pt made good progress towards goals, attaining all LTGs. Pt discharged from facility, d/c from OT. Decreased Activ Tolerance, Decreased UE Strength, Impaired I ADL's Eating (QC): 6 Oral Hygiene (QC): 6 Shower/Bathe Self (QC): 5 Upper Body Dressing (QC): 6 Lower Body Dressing (QC): 6 On/Off Footwear (QC): 6 Toileting Hygiene (QC): 6 PT Pen Tender Goals Skilled Nursing Goals PT Skilled Nursing Goals Time Frame: Jun 26, 2022 Roll Left to Right (QC): 6 Sit to Lying (QC): 6 Lying-Sitting on Side/Bed(QC): 6 Sit to Stand (QC): 6 Chair/Oil-gm-Ypory Xfer(QC): 6 Car Transfer (QC): 6 Does the Patient Walk: Yes Walk 10 feet (QC): 6 Walk 10ft-Uneven Surface(QC): 6 Walk 50ft with 2 Turns (QC): 6 Walk 150 ft (QC): 6 Does the Pt use WC or Scooter?: No Wheel 50 feet with 2 turns (QC: 9 1 Step (curb) (QC): 4 4 Steps (QC): 4 12 Steps (QC): 4 Picking up an Object (QC): 6 OT Skilled Nursing Goals Pen Tender Goals Time Frame: Jun 25, 2022 Eating (QC): 6 (met) Oral Hygiene (QC): 6 (met) Shower/Bathe Self (QC): 5 (met) Upper Body Dressing (QC): 6 (met) Lower Body Dressing (QC): 6 (met) On/Off Footwear (QC): 6 (met) Toileting Hygiene (QC): 6 (met) Toilet/Commode Transfer (QC): 6 Additional Goals: 1-Demonstrate ADL Tasks, 2-Verbalize Understanding, 3-ImproveStrength/Sonu 1=Demonstrate adherence to instructed precautions during ADL tasks. 2=Patient will verbalize/demonstrate understanding of assistive devices/modifications for ADL. 3=Patient will improve strength/tolerance for activity to enable patient to perform ADL's. RADHA DUBOIS OT Jun 10, 2022 10:18
[2022-06-10 10:20] VITALS: BP 139/79
--- NOTE | 2022-06-10 10:57 | Therapy Team Discharge Summary ---
Therapy Discharge Summary Discharge Recommendations Date of Discharge Physical Therapy Patient came to rehab post right TKA. Upon evaluation patient performed rolling with CGA/SBA, supine <-> sit with min/mod assist, sit <-> stand and transfers with CGA/SBA, car transfer CGA/SBA, ambulated 200' with a rolling walker with CGA/SBA (including 50' with at least 2 turns of 90 degrees and 10' over an uneven surface), and went up and down 5 steps with CGA/SBA. Patient has been performing bed mobility and transfer training, balance and endurance training, functional strengthening, stair training, gait training, and education. 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 Now, patient performs rolling and supine <-> sit with setup, sit <-> stand and transfers with setup, car transfer setup, ambulates 150' with a rolling walker with setup (including 50' with at least 2 turns of 90 degrees and 10' over an uneven surface), can go up and down 4 steps using 2 handrails with SBA, and can cherry picker operator an object from the floor using a print decorator with setup. Patient is being discharged from this facility today and will be discharged from PT at this time. Roll Left to Right (QC): 5 Sit to Lying (QC): 5 Lying to Sitting/Side of Bed(Q: 5 Sit to Stand (QC): 5 Chair/[id number] Xfer(QC): 5 Toilet Transfer (QC): 5 Car Transfer (QC): 3 Does the Patient Walk: Yes Mode of Locomotion: Walk Anticipated Mode of Locomotion: Walk Walk 10 feet (QC): 5 Walk 50 ft with 2 Turns(QC): 5 Walk 150 ft (QC): 5 Walking 10ft on uneven surface: 5 Distance: 200' Gait Assistive Device: FWW Does the Pt Use a Wheelchair: No Wheel 50 ft with 2 turns (QC): 9 Wheel 150 ft (QC): 9 Type of Wheelchair: N/A #of Steps: 4 1 Step (curb) (QC): 5 4 Steps (QC): 5 12 Steps (QC): 7 Balance Sitting Static: Normal Balance Sitting Dynamic: Normal Balance-Standing Static: Good Picking up an Object (QC): 5 Occupational Therapy Decreased Activ Tolerance, Decreased UE Strength, Impaired I ADL's Eating (QC): 6 Oral Hygiene (QC): 6 Shower/Bathe Self (QC): 5 Upper Body Dressing (QC): 6 Lower Body Dressing (QC): 6 On/Off Footwear (QC): 6 Toileting Hygiene (QC): 6 PT Periodontist Goals Periodontist Goals PT Periodontist Goals Time Frame: Jun 26, 2022 Roll Left to Right (QC): 6 Sit to Lying (QC): 6 Lying-Sitting on Side/Bed(QC): 6 Sit to Stand (QC): 6 Chair/Rbk-ly-Izmgj Xfer(QC): 6 Car Transfer (QC): 6 Does the Patient Walk: Yes Walk 10 feet (QC): 6 Walk 10ft-Uneven Surface(QC): 6 Walk 50ft with 2 Turns (QC): 6 Walk 150 ft (QC): 6 Does the Pt use WC or Scooter?: No Wheel 50 feet with 2 turns (QC: 9 1 Step (curb) (QC): 4 4 Steps (QC): 4 12 Steps (QC): 4 Picking up an Object (QC): 6 OT Periodontist Goals Periodontist Goals Time Frame: Jun 25, 2022 Eating (QC): 6 (met) Oral Hygiene (QC): 6 (met) Shower/Bathe Self (QC): 5 (met) Upper Body Dressing (QC): 6 (met) Lower Body Dressing (QC): 6 (met) On/Off Footwear (QC): 6 (met) Toileting Hygiene (QC): 6 (met) Toilet/Commode Transfer (QC): 6 Additional Goals: 1-Demonstrate ADL Tasks, 2-Verbalize Understanding, 3- ImproveStrength/Sonu 1=Demonstrate adherence to instructed precautions during ADL tasks. 2=Patient will verbalize/demonstrate understanding of assistive devices/modifi cations for ADL. 3=Patient will improve strength/tolerance for activity to enable patient to perform ADL's. ISMAEL TANNER PT Jun 10, 2022 10:57
== END 2022-06-10 10:30 | disposition home health service (06) | DRG 561 ==
PROVIDERS: ADMIT Internal Medicine; ATTEND Internal Medicine
DX: Z47.1 Aftercare following joint replacement surgery (principal); Z96.651 Presence of right artificial knee joint; E87.6 Hypokalemia; I10 Essential (primary) hypertension; E78.00 Pure hypercholesterolemia, unspecified; C50.919 Malignant neoplasm of unspecified site of unspecified female breast; Z79.82 Long term (current) use of aspirin; K59.00 Constipation, unspecified; K21.9 Gastro-esophageal reflux disease without esophagitis
CPT/HCPCS: 36415; 80053; 85025

== ENCOUNTER → 2022-07-02 | Outpatient (RCR) | payer MEDICARE, OTHER ==
[~2022-07-02] MED LIST changes: -ACETAMINOPHEN 325 MG TABLET PO PRN; -ALPRAZolam 0.25 MG (XANAX) TAB PO PRN; -BISACODYL 10 MG SUPP (DULCOLAX) PR PRN; -CALCIUM CARBONATE 500 MG (TUMS) TAB.CHEW PO PRN; +DICL75TA2 PO; -DOCUSATE SODIUM 100 MG (COLACE) CAP PO PRN; -DOCUSATE SODIUM 100 MG (COLACE) CAP PO SCH; -FLEET ENEMA ADULT 1 EA BTL PR PRN; -LACTULOSE SYRUP 10GM/15ML (ENULOSE) 30ML UDC PO PRN; -LOPERAMIDE 2 MG (IMODIUM) TABLET PO PRN; -MELATONIN 3 MG TABLET PO PRN; -ONDANSETRON 4 MG (ZOFRAN) ORAL DISSOLVE TAB PO PRN; +SENN1TAB76 PO; -diphenhydrAMINE 25 MG TAB (BENADRYL) PO PRN; -guaiFENesin/CODEINE (ROBITUSSIN AC) 10ML UDC PO PRN
== END | disposition home or self-care (01) ==
PROVIDERS: ATTEND Orthopaedic Surgery
DX: Z47.1 Aftercare following joint replacement surgery (principal); Z96.651 Presence of right artificial knee joint

== ENCOUNTER → 2022-08-02 | Outpatient (RCR) | payer MEDICARE, OTHER | END | disposition home or self-care (01) | DX: Z47.1 Aftercare following joint replacement surgery (principal); I10 Essential (primary) hypertension; Z96.651 Presence of right artificial knee joint ==

== ENCOUNTER → 2022-09-01 | Outpatient (RCR) | payer MEDICARE, OTHER | END | disposition home or self-care (01) | PROVIDERS: ATTEND Orthopaedic Surgery | DX: Z47.1 Aftercare following joint replacement surgery (principal); I10 Essential (primary) hypertension; Z96.651 Presence of right artificial knee joint ==

== ENCOUNTER 2022-09-03 09:05 | Outpatient (RCR) | payer MEDICARE, OTHER | END 2022-09-03 10:18 | disposition home or self-care (01) | PROVIDERS: ATTEND Orthopaedic Surgery | DX: M17.11 Unilateral primary osteoarthritis, right knee (principal); I10 Essential (primary) hypertension; Z96.651 Presence of right artificial knee joint ==